=== PATIENT | male | born 1965 | race Caucasian/White ===

== ENCOUNTER 2018-03-06 15:01 | Inpatient (IN) | payer MEDICARE ==
[2018-03-06] MEDS ORDERED: diphenhydrAMINE 50 MG/ML 1 ML VIAL IVP STA ×2 (15:18→15:31)
[2018-03-06] MEDS ORDERED: SODIUM CHLORIDE 0.9% 1,000 ML IV STA (15:19)
[2018-03-06] MEDS ORDERED: SODIUM CHLORIDE 0.9% 500 ML 500 ML IV STA ×2 (15:19→16:01)
--- NOTE | 2018-03-06 15:22 | ED ---
General Adult HPI - General Chief complaint: Allergic Reaction Stated complaint: SEIZURE Time Seen by Provider: 03/06/18 15:01 Source: patient, EMS, RN notes reviewed Mode of arrival: EMS Limitations: no limitations - History of Present Illness Initial comments: This is a 52-year-old male who admits to a history of alcoholism was just started on 2 new medications yesterday Celexa and naltrexone who states he had the onset this morning of what he believes to be as a reaction. He's had shaking rigors he feels very uncomfortable he states his fever and spasming. Denies any head or neck or back pain loss of function is upper or lower extremities no blurry vision. No recent drugs or alcohol reported no prior reaction to medication. He does state he's Benadryl asleep he hasn't taken it today. - Related Data Home Medications Medication Instructions Recorded Confirmed ALPRAZolam [Xanax] 0.5 mg PO HS 03/06/18 03/06/18 Chlorthalidone 50 mg PO DAILY 03/06/18 03/06/18 Citalopram Hydrobromide [CeleXA] 10 mg PO DAILY 03/06/18 03/06/18 Clopidogrel Bisulfate [Plavix] 75 mg PO DAILY 03/06/18 03/06/18 Naltrexone HCl [Revia] 50 mg PO DAILY 03/06/18 03/06/18 Simvastatin [Zocor] 20 mg PO HS 03/06/18 03/06/18 Umeclidinium Brm/Vilanterol Tr 1 puff INHALATION RT-DAILY 03/06/18 03/06/18 [Anoro Ellipta 62.5-25 Mcg INH] Allergies Allergy/AdvReac Type Severity Reaction Status Date / Time SEAFOOD Allergy Anaphylaxis Uncoded 03/06/18 17:08 Review of Systems ROS Statement: Those systems with pertinent positive or pertinent negative responses have been documented in the HPI. ROS Other: All systems not noted in ROS Statement are negative. Past Medical History Past Medical History: CVA/TIA, Hyperlipidemia History of Any Multi-Drug Resistant Organisms: None Reported Past Surgical History: Appendectomy, Back Surgery Additional Past Surgical History / Comment(s): Knee/shoulder surgery, pain pump "dilaudid" Past Psychological History: Anxiety Smoking Status: Former smoker Past Alcohol Use History: Heavy Past Drug Use History: None Reported General Exam - General Exam Comments Initial Comments: This a well-developed well-nourished awake alert anxious male Limitations: no limitations General appearance: alert, anxious, in distress Head exam: Present: atraumatic, normocephalic, normal inspection Eye exam: Present: normal appearance, PERRL, EOMI. Absent: scleral icterus, conjunctival injection, periorbital swelling ENT exam: Present: normal exam, mucous membranes moist Neck exam: Present: normal inspection. Absent: tenderness, meningismus, lymphadenopathy Respiratory exam: Present: normal lung sounds bilaterally. Absent: respiratory distress, wheezes, rales, rhonchi, stridor Cardiovascular Exam: Present: normal rhythm, tachycardia, normal heart sounds. Absent: systolic murmur, diastolic murmur, rubs, gallop, clicks GI/Abdominal exam: Present: soft, normal bowel sounds. Absent: distended, tenderness, guarding, rebound, rigid Extremities exam: Present: normal inspection, full ROM, normal capillary refill. Absent: tenderness, pedal edema, joint swelling, calf tenderness Back exam: Present: normal inspection Neurological exam: Present: alert, oriented X3, CN II-XII intact Psychiatric exam: Present: normal affect, normal mood Skin exam: Present: warm, dry, intact, normal color. Absent: rash Course Vital Signs 03/06/18 03/06/18 15:04 15:38 Temperature 97.5 F L Pulse Rate 108 H Respiratory 20 20 Rate O2 Sat by Pulse 97 Oximetry - Reevaluation(s) Reevaluation #1: 03/06/18 15:42 Patient does start still respond to 2 doses of Benadryl IV push. Haldol be given. Reevaluation #2: 03/06/18 17:52 Patient is finally getting some relief from his tremors. Medical Decision Making - Medical Decision Making I did discuss case with the patient with Dr. Carpio patient be admitted for IV fluids and treatment of what appears to be alcohol withdrawal with a possible medication reaction patient does have a history of heavy alcohol consumption and has not had any since yesterday - Lab Data Result diagrams: 03/06/18 15:19 03/06/18 15:19 Lab Results 03/06/18 03/06/18 03/06/18 Range/Units 15:19 15:19 15:19 WBC (3.8-10.6) k/uL RBC (4.30-5.90) m/uL Hgb (13.0-17.5) gm/dL Hct (39.0-53.0) % MCV (80.0-100.0) fL MCH (25.0-35.0) pg MCHC (31.0-37.0) g/dL RDW (11.5-15.5) % Plt Count (150-450) k/uL Neutrophils % % Lymphocytes % % Monocytes % % Eosinophils % % Basophils % % Neutrophils # (1.3-7.7) k/uL Lymphocytes # (1.0-4.8) k/uL Monocytes # (0-1.0) k/uL Eosinophils # (0-0.7) k/uL Basophils # (0-0.2) k/uL Sodium 138 (137-145) mmol/L Potassium 3.9 (3.5-5.1) mmol/L Chloride 105 (98-107) mmol/L Carbon Dioxide 24 (22-30) mmol/L Anion Gap 9 mmol/L BUN 8 L (9-20) mg/dL Creatinine 0.74 (0.66-1.25) mg/dL Est GFR (CKD-EPI)AfAm >90 (>60 ml/min/1.73 sqM) Est GFR (CKD-EPI)NonAf >90 (>60 ml/min/1.73 sqM) Glucose 118 H (74-99) mg/dL Calcium 9.9 (8.4-10.2) mg/dL Magnesium 2.1 (1.6-2.3) mg/dL Total Bilirubin 1.1 (0.2-1.3) mg/dL AST 28 (17-59) U/L ALT 36 (21-72) U/L Alkaline Phosphatase 103 (38-126) U/L Ammonia 14 (<30) umol/L Total Creatine Kinase 61 (55-170) U/L CK-MB (CK-2) 1.0 (0.0-2.4) ng/mL CK-MB (CK-2) Rel Index 1.6 Total Protein 7.2 (6.3-8.2) g/dL Albumin 4.4 (3.5-5.0) g/dL Amylase 53 (30-110) U/L Lipase 68 (23-300) U/L Urine Opiates Screen (NotDetected) Ur Oxycodone Screen (NotDetected) Urine Methadone Screen (NotDetected) Ur Propoxyphene Screen (NotDetected) Ur Barbiturates Screen (NotDetected) U Tricyclic Antidepress (NotDetected) Ur Phencyclidine Scrn (NotDetected) Ur Amphetamines Screen (NotDetected) U Methamphetamines Scrn (NotDetected) U Benzodiazepines Scrn (NotDetected) Urine Cocaine Screen (NotDetected) U Marijuana (THC) Screen (NotDetected) Serum Alcohol <10 mg/dL 03/06/18 03/06/18 Range/Units 15:19 17:01 WBC 8.7 (3.8-10.6) k/uL RBC 4.89 (4.30-5.90) m/uL Hgb 15.6 (13.0-17.5) gm/dL Hct 45.4 (39.0-53.0) % MCV 92.8 (80.0-100.0) fL MCH 32.0 (25.0-35.0) pg MCHC 34.5 (31.0-37.0) g/dL RDW 13.1 (11.5-15.5) % Plt Count 267 (150-450) k/uL Neutrophils % 75 % Lymphocytes % 14 % Monocytes % 6 % Eosinophils % 2 % Basophils % 0 % Neutrophils # 6.5 (1.3-7.7) k/uL Lymphocytes # 1.2 (1.0-4.8) k/uL Monocytes # 0.6 (0-1.0) k/uL Eosinophils # 0.2 (0-0.7) k/uL Basophils # 0.0 (0-0.2) k/uL Sodium (137-145) mmol/L Potassium (3.5-5.1) mmol/L Chloride (98-107) mmol/L Carbon Dioxide (22-30) mmol/L Anion Gap mmol/L BUN (9-20) mg/dL Creatinine (0.66-1.25) mg/dL Est GFR (CKD-EPI)AfAm (>60 ml/min/1.73 sqM) Est GFR (CKD-EPI)NonAf (>60 ml/min/1.73 sqM) Glucose (74-99) mg/dL Calcium (8.4-10.2) mg/dL Magnesium (1.6-2.3) mg/dL Total Bilirubin (0.2-1.3) mg/dL AST (17-59) U/L ALT (21-72) U/L Alkaline Phosphatase (38-126) U/L Ammonia (<30) umol/L Total Creatine Kinase (55-170) U/L CK-MB (CK-2) (0.0-2.4) ng/mL CK-MB (CK-2) Rel Index Total Protein (6.3-8.2) g/dL Albumin (3.5-5.0) g/dL Amylase (30-110) U/L Lipase (23-300) U/L Urine Opiates Screen Detected H (NotDetected) Ur Oxycodone Screen Detected H (NotDetected) Urine Methadone Screen Not Detected (NotDetected) Ur Propoxyphene Screen Not Detected (NotDetected) Ur Barbiturates Screen Not Detected (NotDetected) U Tricyclic Antidepress Not Detected (NotDetected) Ur Phencyclidine Scrn Not Detected (NotDetected) Ur Amphetamines Screen Not Detected (NotDetected) U Methamphetamines Scrn Not Detected (NotDetected) U Benzodiazepines Scrn Detected H (NotDetected) Urine Cocaine Screen Not Detected (NotDetected) U Marijuana (THC) Screen Not Detected (NotDetected) Serum Alcohol mg/dL Critical Care Time Critical Care Time: Yes Critical Care Time: 32 minutes of critical care time which includes monitoring EMS run and discussed with paramedics history physical labs x-rays several reevaluation the patient response to therapy discuss with the patient discussed with the admitting physician admission orders and documentation of the above Disposition Clinical Impression: Alcohol withdrawal delirium, acute, mixed level of activity, Adverse reaction to drug Disposition: ADMITTED IP TO THIS [facility] Condition: Stable Referrals: Manfred Carpio MD [Primary Care Provider] - 1-2 days
[2018-03-06 15:37] LABS: Basophils % (A) 0 %; Eosinophils # (A) 0.2 k/uL (0-0.7); Eosinophils % (A) 2 %; HCT 45.4 % (39.0-53.0); HGB 15.6 gm/dL (13.0-17.5); Lymphocytes # (A) 1.2 k/uL (1.0-4.8); Lymphocytes % (A) 14 %; MCHC 34.5 g/dL (31.0-37.0); MCV 92.8 fL (80.0-100.0); Mean Platelet Volume 6.7; Monocytes # (A) 0.6 k/uL (0-1.0); Monocytes % (A) 6 %; Neutrophils # (A) 6.5 k/uL (1.3-7.7); Neutrophils % (A) 75 %; Platelet Count 267 k/uL (150-450); RBC 4.89 m/uL (4.30-5.90); RDW 13.1 % (11.5-15.5); WBC 8.7 k/uL (3.8-10.6)
[2018-03-06] MEDS ORDERED: HALOPERIDOL LACTATE 5 MG/ML 1 ML VIAL IVP STA (15:40)
[2018-03-06 15:47] LABS: ALT 36 U/L (21-72); AST 28 U/L (17-59); Albumin 4.4 g/dL (3.5-5.0); Alcohol <10 mg/dL; Alkaline Phosphatase 103 U/L (38-126); Amylase 53 U/L (30-110); Anion Gap 9 mmol/L; Blood Urea Nitrogen 8 mg/dL (9-20); Calcium 9.9 mg/dL (8.4-10.2); Carbon Dioxide 24 mmol/L (22-30); Chloride 105 mmol/L (98-107); Glucose 118 mg/dL (74-99); Lipase 68 U/L (23-300); Magnesium 2.1 mg/dL (1.6-2.3); Potassium 3.9 mmol/L (3.5-5.1); Sodium 138 mmol/L (137-145); Total Bilirubin 1.1 mg/dL (0.2-1.3); Total Protein 7.2 g/dL (6.3-8.2)
[2018-03-06] MEDS ORDERED: LORazepam 2 MG/ML INJ IV STA (16:00)
[2018-03-06 17:16] LABS: Amphetamine Screen,Urine Not Detected (NotDetected); Barbiturate Screen,Urine Not Detected (NotDetected); Benzodiazepines Screen,Urine Detected (NotDetected); Cocaine Screen,Urine Not Detected (NotDetected); Methadone Screen, Urine Not Detected (NotDetected); Opiate Screen,Urine Detected (NotDetected); Oxycodone Screen, Urine Detected (NotDetected); Phencyclidine Screen,Urine Not Detected (NotDetected); Tricyclic Antidepressant,Urine Not Detected (NotDetected); Urn Cannabinoid Scrn Not Detected (NotDetected)
[2018-03-06] MEDS ORDERED: NALOXONE 0.4 MG/ML 1 ML VIAL IV PRN (17:53)
[2018-03-06] MEDS ORDERED: LORazepam 2 MG/ML INJ IV PRN ×2 (17:55)
[2018-03-06] MEDS ORDERED: THIAMINE 100 MG/ML 2 ML VIAL IM STA (17:55)
[2018-03-06] MEDS ORDERED: SODIUM CHLORIDE 0.9% 1,000 ML with MVI, ADULT NO.4 WITH VIT K 10 ML, THIAMINE 100 MG, F... IV ONE ×4 (18:00)
[2018-03-06] MEDS: ATORVASTATIN 10 MG TAB PO SCH (22:35)
[2018-03-06] MEDS: LORazepam 2 MG/ML INJ IV PRN (23:04)
[2018-03-06] MEDS: ALPRAZolam 0.5 MG TAB PO SCH (23:04)
--- NOTE | 2018-03-06 23:09 | P.CNNES ---
History of Present Illness Consult date: 03/06/18 Reason for Consult: Patient admitted with alcohol withdrawal syndrome and adverse drug reaction History of Present Illness: This patient is a 52-year-old right-handed white male who was in his usual state of health until yesterday. Patient states that he was seen by his primary care physician Dr. Manfred Khoury and was suggested to consider treatment of underlying depression and alcohol is him as he has been suffering from with these symptoms for the past many years. He has a long-standing history of alcohol abuse and was trying to stop drinking altogether and had gone 21 days without a drink. Apparently he decided to start back on alcohol just yesterday. He went to see his primary care physician Dr. Bi Khoury who suggested he may benefit from a trial of 2 medications for treatment of his alcoholism. He was prescribed Celexa and naltrexone. He did obtain these to medications but did not use it for day or 2 as he was concerned of possible side effects. Apparently today he decided to take one of each pill to see if this would be of any benefit for him. Rarely he has been very depressed and is living alone in his own [place]. Apparently there are very few renters around his home as it is the sixth winter season and they will only return during the summer. The patient apparently has been doing fairly well over the years living in his cottage independently. He states he has been frustrated as he has recently undergone divorce and has been dealing with chronic depression as well as chronic low back pain. He also suffers from PTSD since 2002. His chronic back pain has been treated by his pain specialists in [place] Dr. Lainez. Apparently has a pain pump placed in his back and in the spinal area which is filled with Dilaudid every 2 months. The patient states that he has been dealing with alcohol withdrawal seizures as well as alcohol related medical problems. He is willing to consider drug rehabilitation and may seek out possible outpatient therapies locally. The patient otherwise has been doing better since being evaluated in the emergency room. Patient states that within 30 minutes of taking these 2 pills he began experiencing burning pain within the body followed by severe dystonic reaction. He was seen in the emergency room by Dr. Ny and was given 2 doses of Benadryl. This has worked very well for the patient and he seems to be coming out of his acute dystonic type reaction. We described all of these findings today in detail with the patient. Most likely the patient did suffer some form of dystonia. The Benadryl that was given to him in the ER was very helpful. We have recommended the patient to follow-up in the outpatient drug rehabilitation program at [place]. He will consider this upon discharge. The patient is now admitted and has been started on a CIWA protocol. He should complete the entire course and hopefully this will be beneficial for him in the long run. The patient is now admitted and neurology has been consulted for further evaluation and recommendations. Review of Systems Constitutional: Denies chills, Denies fever Eyes: denies blurred vision, denies pain Ears, nose, mouth and throat: Denies headache, Denies sore throat Cardiovascular: Denies chest pain, Denies shortness of breath Respiratory: Denies cough Gastrointestinal: Denies abdominal pain, Denies diarrhea, Denies nausea, Denies vomiting Musculoskeletal: Denies myalgias Integumentary: Denies pruritus, Denies rash Neurological: Reports change in mentation, Reports confusion, Reports convulsions, Reports headaches, Reports memory loss, Reports sensory deficit, Denies numbness, Denies weakness Psychiatric: Denies anxiety, Denies depression Endocrine: Denies fatigue, Denies weight change Past Medical History Past Medical History: CVA/TIA, Hyperlipidemia History of Any Multi-Drug Resistant Organisms: None Reported Past Surgical History: Appendectomy, Back Surgery Additional Past Surgical History / Comment(s): Knee/shoulder surgery, pain pump "dilaudid" Past Psychological History: Anxiety Smoking Status: Former smoker Past Alcohol Use History: Heavy Past Drug Use History: None Reported Medications and Allergies Home Medications Medication Instructions Recorded Confirmed Type ALPRAZolam [Xanax] 0.5 mg PO HS 03/06/18 03/06/18 History Chlorthalidone 50 mg PO DAILY 03/06/18 03/06/18 History Citalopram Hydrobromide [CeleXA] 10 mg PO DAILY 03/06/18 03/06/18 History Clopidogrel Bisulfate [Plavix] 75 mg PO DAILY 03/06/18 03/06/18 History Naltrexone HCl [Revia] 50 mg PO DAILY 03/06/18 03/06/18 History Simvastatin [Zocor] 20 mg PO HS 03/06/18 03/06/18 History Umeclidinium Brm/Vilanterol Tr 1 puff INHALATION RT-DAILY 03/06/18 03/06/18 History [Anoro Ellipta 62.5-25 Mcg INH] Allergies Allergy/AdvReac Type Severity Reaction Status Date / Time SEAFOOD Allergy Anaphylaxis Uncoded 03/06/18 17:08 Physical Examination - Vital Signs Vital Signs: Vital Signs Temp Pulse Pulse Resp BP BP Pulse Ox 03/06/18 20:44 99 F 99 20 154/81 96 03/06/18 20:07 97 18 132/88 96 03/06/18 17:30 111 H 10 L 147/90 03/06/18 16:30 97 9 L 140/88 95 03/06/18 15:38 20 03/06/18 15:30 118 H 27 H 196/105 96 03/06/18 15:06 105 H 36 H 98 03/06/18 15:04 97.5 F L 108 H 20 97 Intake and Output 03/06/18 03/06/18 03/06/18 06:59 14:59 22:59 Other: Weight 113.398 kg - Constitutional General appearance: average body habitus, cooperative - EENT EENT: PERRL, mucous membranes moist - Respiratory Respiratory: lungs clear, normal breath sounds - Cardiovascular Cardiovascular: regular rate, normal S1, normal S2 Extremities: no peripheral edema bilaterally - Gastrointestinal Gastrointestinal: normoactive bowel sounds - Integumentary Integumentary: normal - Neurologic Cranial nerve examination: PERRL, EOMI, VFF, V1/V2/V3 grossly intact, face symmetric, intact shoulder shrug, intact gag reflex, intact corneal reflex, normal palatal elevation Speech examination: intact Sensorimotor examination: intact Motor examination - right side: 4/5: biceps, triceps, wrist flexion, wrist extension, biofuels plant 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 engineer, hip flexors, knee extensors, dorsiflexion, toe extension (EHL) , plantarflexion Motor examination - left side: 4/5: biceps, triceps, wrist flexion, wrist extension, biofuels plant operations engineer, hip flexors, knee extensors, dorsiflexion, toe extension (EHL) , plantarflexion Detailed sensory examination: intact Reflex and gait examination: intact Reflexes: 1+: ankle, bicep, knee, tricep - Musculoskeletal Musculoskeletal: no pain - Psychiatric Psychiatric: mood/affect appropriate, cooperative Results - Laboratory Findings CBC and BMP: 03/06/18 15:19 03/06/18 15:19 Abnormal Lab Findings: Abnormal Labs 03/06/18 03/06/18 15:19 17:01 BUN 8 L Glucose 118 H Urine Opiates Screen Detected H Ur Oxycodone Screen Detected H U Benzodiazepines Scrn Detected H Assessment and Plan (1) Adverse reaction to drug Current Visit: Yes Status: Acute Code(s): T50.905A - ADVERSE EFFECT OF UNSP DRUG/MEDS/BIOL SUBST, INIT SNOMED Code(s): 26753959 (2) Alcohol withdrawal delirium, acute, mixed level of activity Current Visit: Yes Status: Acute Code(s): F10.231 - ALCOHOL DEPENDENCE WITH WITHDRAWAL DELIRIUM SNOMED Code(s): 1379928 Plan: This patient is a 52-year-old male who has a long-standing history of chronic low back pain, PTSD, depression, and alcoholism. Patient had been trying to quit alcohol altogether noted on taken a drink for over 21 days. Apparently he restarted alcohol just a few days ago. He was seen by his primary care physician and was prescribed Celexa and naltrexone. Patient apparently waited until today to try the medications and apparently had a very adverse reaction to these 2 medications. He developed some dystonia. He was brought into the emergency room at [facility] for further evaluation. He was seen in the ER by Dr. Ny. He was felt to have some form of dystonia and was given 2 shots of Benadryl which was very helpful. The patient otherwise seems to be making progress. He has not had any type of adverse reaction to medications in the past. We would recommend the patient have a computed tomography scan of the brain as a baseline study. He does have history of a stroke 7 years ago. We will continue close neurological follow-up for the patient during this admission. His overall prognosis at this time remains guarded. We have also recommended to the patient to consider inpatient drug rehabilitation at [facility]. He will consider this with Dr. Rodriguez. Patient otherwise states he has been doing better since admission to the hospital. He has been placed on a CIWA protocol and should continue on the same. The patient otherwise seems to be doing well. We will continue to follow his neurological status closely during this admission. His overall prognosis at this time remains guarded. Time with Patient: Greater than 30
[2018-03-06 23:16] VITALS: BMI 33.4
[2018-03-07] MEDS: HYDROmorphone 1 MG/ML 1 ML SYRINGE IVP PRN ×4 (00:20→17:20)
[2018-03-07] MEDS: IPRATROPIUM 0.5 MG/2.5 ML NEBU INHALATION SCH ×4 (07:29→19:33)
[2018-03-07] MEDS: FORMOTEROL FUMARATE 20 MCG/2 ML NEBU INHALATION SCH ×2 (07:29→19:33)
[2018-03-07] MEDS: LORazepam 2 MG/ML INJ IV PRN ×2 (08:27→13:58)
[2018-03-07] MEDS: CLOPIDOGREL 75 MG TAB PO SCH (08:49)
[2018-03-07] MEDS: CHLORTHALIDONE 25 MG TAB PO SCH (08:50)
[2018-03-07] MEDS: THIAMINE 100 MG TAB PO SCH ×2 (12:04→17:20)
--- NOTE | 2018-03-07 16:14 | CT ---
EXAMINATION TYPE: CT brain wo con DATE OF EXAM: 03/07/2018 COMPARISON: Prior head CT 09/19/2011 HISTORY: Prior CVA. CT DLP: 1225 mGycm Automated exposure control for dose reduction was used. CT brain performed. FINDINGS: White matter low-attenuation changes are again seen. No hemorrhage or hydrocephalus. No mass effect. Calvarium is intact. Paranasal sinuses and mastoid air cells as visualized are unremarkable. IMPRESSION: NONSPECIFIC WHITE MATTER DEMYELINATION. NO ACUTE ABNORMALITIES EVIDENT. CONSIDER BRAIN MRI.
--- NOTE | 2018-03-07 19:59 | EEG ---
ELECTROENCEPHALOGRAM REPORT DATE OF EE03/07/2018. REFERRING PHYSICIAN: Dr. Carpio. INTERPRETING PHYSICIAN: Dr. Wood Avina MD ELECTROENCEPHALOGRAPHIC EXAMINATION REPORT: INDICATION FOR EXAMINATION: This patient is a 52-year-old male, admitted for possible alcohol withdrawal seizure and adverse reaction to medication. Patient treated with Celexa on naltrexone and developed dystonia with possible seizure activity. The patient has history of alcohol withdrawal seizures in the past. AGE: [age]. EEG FINDINGS: A routine 21 channel awake digital EEG recording was accomplished utilizing the 10-20 international system with bipolar and referential montages. The background activity in the most alert resting state consists of a low to medium amplitude, fairly well developed and well sustained 8 Hz activity over the posterior head region. This posterior rhythm attenuates to eye opening. There is a small amount of low amplitude 18-20 Hz beta activity seen maximally over the anterior head regions. Muscle and movement artifact was observed on a few occasions during the tracing. Hyperventilation was not performed. Photic stimulation at flash frequencies of 2-30 Hz produced a good symmetrical occipital driving response. No epileptiform discharges were seen. IMPRESSION: This EEG is within normal limits for the patient's age. The EEG failed to reveal any focal, lateralized, or epileptiform abnormalities. Clinical correlation is recommended. MMODL / IJN: [id number] /
--- NOTE | 2018-03-07 20:41 | P.PN ---
Subjective Progress Note Date: 03/07/18 This patient is a 52-year-old male who was seen in neurology consultation yesterday for evaluation of alcohol related withdrawal seizure and confusion. He was admitted and started on a CIWA protocol for alcohol withdrawal. He was sent for computed tomography scan of the brain today which revealed nonspecific white matter changes. No acute abnormalities were evident. We reviewed the CAT scan report today with the patient. He does have a remote history of having suffered a stroke many years ago. He seems to be doing better in terms of his overall mental status today and is able to answer all questions appropriately. As noted he is on a CIWA protocol which is working quite well for him at this time. Patient underwent routine EEG today which will be further reviewed this evening. We did review his EEG this evening and it does come back within normal limits for his age. There was no evidence of any epileptiform discharges. We reviewed these results today with the patient in detail. Patient is anticipating possible discharge home tomorrow. We once again recommend the patient should consider a drug rehabilitation program at [place] [facility]. Patient is also reminded that he is to be very cautious with his ALLERGIES and to carry EpiPen with him at all times. At this point he does not require anticonvulsant therapy. We will continue close neurological follow-up the patient during this admission. Objective - Vital Signs Vital signs: Vital Signs Temp 97.9 F 03/07/18 13:42 Pulse 88 03/07/18 16:04 Resp 24 03/07/18 13:42 BP 130/73 03/07/18 13:42 Pulse Ox 98 03/07/18 13:42 Intake & Output 03/07/18 03/07/18 03/08/18 06:59 18:59 06:59 Intake Total 400 Balance 400 Weight 115 kg Intake: Oral 400 Other: Voiding Method Toilet Urinal # Voids 1 3 - Exam Physical examination: PHYSICAL EXAMINATION: Patient is resting comfortably in bed. VITAL SIGNS: Blood pressure is [130/73]. Heart rate is [92]. Respiration is [24] . Temperature is [97.9]. HEENT: Head is atraumatic, neck is supple, there were no carotid bruits. CHEST: Lungs are clear to auscultation and percussion. CARDIAC: S1, S2 normal rate and rhythm. There is no murmur. ABDOMEN: Soft and nontender. Bowel sounds are present. EXTREMITIES: There is no pedal edema. Peripheral pulses are present. Neurological examination: Patient's neurological examination is unchanged from yesterday. Patient is alert and oriented 3. His speech is fluent with no evidence of any aphasia or dysarthria. His memory and intellectual functions are appropriate for his age. Cranial nerves II through XII are grossly intact. Motor examination fails to reveal any focal motor weakness. Sensory examination was intact. Deep tendon reflexes are 1+ and symmetric. Plantar responses flexor bilaterally. - Labs CBC & Chem 7: 03/06/18 15:19 03/06/18 15:19 Assessment and Plan (1) Adverse reaction to drug Current Visit: Yes Status: Acute Code(s): T50.905A - ADVERSE EFFECT OF UNSP DRUG/MEDS/BIOL SUBST, INIT SNOMED Code(s): 45479574 (2) Alcohol withdrawal delirium, acute, mixed level of activity Current Visit: Yes Status: Acute Code(s): F10.231 - ALCOHOL DEPENDENCE WITH WITHDRAWAL DELIRIUM SNOMED Code(s): 1556724 Plan: This patient is a 52-year-old male who has a long-standing history of chronic low back pain, PTSD, depression, and alcoholism. Patient had been trying to quit alcohol altogether noted on taken a drink for over 21 days. Apparently he restarted alcohol just a few days ago. He was seen by his primary care physician and was prescribed Celexa and naltrexone. Patient apparently waited until today to try the medications and apparently had a very adverse reaction to these 2 medications. He developed some dystonia. He was brought into the emergency room at [facility] for further evaluation. He was seen in the ER by Dr. Ny. He was felt to have some form of dystonia and was given 2 shots of Benadryl which was very helpful. The patient otherwise seems to be making progress. He has not had any type of adverse reaction to medications in the past. Patient was reminded that he should avoid both of these medications in the future so as to avoid any dystonic reactions. He states he will definitely make a note to never use these to prescription medications again. We would recommend the patient have a computed tomography scan of the brain as a baseline study. He does have history of a stroke 7 years ago. We will continue close neurological follow-up for the patient during this admission. His overall prognosis at this time remains guarded. We have also recommended to the patient to consider inpatient drug rehabilitation at [facility]. He will consider this with Dr. Carpio.. Patient otherwise states he has been doing better since admission to the hospital. He has been placed on a CIWA protocol and should continue on the same. Patient was sent for computed tomography scan of the brain this morning which was reviewed and is negative for any evidence of acute stroke or chronic strokes in the past. Patient mentions he has a history of total occlusion of the left ICA. He should follow-up with his primary care physician to have a yearly carotid Doppler ultrasound study done for further monitoring. Most likely the patient will be discharged home tomorrow. He is to follow-up with his primary care physician soon after discharge. Once again we have recommended he consider a drug rehabilitation program at [place]. The patient otherwise seems to be doing well. We will continue to follow his neurological status closely during this admission. His overall prognosis at this time remains guarded.
--- NOTE | 2018-03-07 20:44 | HP ---
HISTORY AND PHYSICAL CHIEF COMPLAINT: This is a 52-year-old white male with alcohol withdrawal symptoms, adverse drug reaction. HISTORY OF PRESENT ILLNESS: This is a 52-year-old white male alcohol abuse he took naltrexone and went back to drinking alcohol. He took one of each pill and he developed some kind of tremors in his arms and spasticity and worsening depression and due to some dystonic movements he came into the emergency room. Neurology has seen him. Medicines were stopped after one pill. He took just one pill, he states, of each medication. He states he will go to a drug rehab program at [place] for alcohol at his discharge. He was started on CIWA protocol. REVIEW OF SYSTEMS: Fourteen-point review of systems negative except for generalized weakness, history of CVA, TIA, alcoholism, nicotine addiction, carotid stenosis, dyslipidemia. SURGERIES: 1. Appendectomy. 2. Back surgery. 3. Knee surgery. 4. Pain pump with Dilaudid apparently in his back. 5. Heavy alcohol. HOME MEDICINES: 1. Xanax. He states this is helping him. 2. Chlorthalidone. 3. Celexa. 4. Plavix. 5. Revia. 6. Zocor. 7. Anoro. ALLERGIES: SEAFOOD. PHYSICAL EXAMINATION: VITAL SIGNS: Temperature 99, pulse in 90s to low 100s, respiratory rate 18-20, blood pressure 120s to 140s over 80s to 90s, oxygen 96% on room air. CARDIOVASCULAR: S1 and S2. LUNGS: Clear. He is giving appropriate answers. He stands on the side of the bed with good balance. He took a few steps and sat back down. He states he is doing well and wants to go home in the morning. His flexions are good. His range of motion is good x4. He has no extremity tremors. No signs of any weakness at this point. ASSESSMENT: Possible adverse reaction to a drug, alcohol withdrawal. He was started on CIWA protocol. He is doing well at this time. He also had aversion to one pill. He will follow up as an outpatient. We send him home in the morning. He is requesting increased Dilaudid and Xanax while he is here in the hospital. MMODL / IJN: [id number] /
[2018-03-07] MEDS: HYDROmorphone 1 MG/ML 1 ML SYRINGE IM PRN (21:08)
[2018-03-07] MEDS: ALPRAZolam 0.5 MG TAB PO SCH (21:11)
[2018-03-07] MEDS: ATORVASTATIN 10 MG TAB PO SCH (21:11)
[2018-03-07 23:32] VITALS: RESP 16
[2018-03-08] MEDS: HYDROmorphone 1 MG/ML 1 ML SYRINGE IM PRN ×3 (01:05→09:11)
[2018-03-08] MEDS: IPRATROPIUM 0.5 MG/2.5 ML NEBU INHALATION SCH ×2 (07:48→11:19)
[2018-03-08] MEDS: FORMOTEROL FUMARATE 20 MCG/2 ML NEBU INHALATION SCH (07:48)
[2018-03-08 07:54] VITALS: BP 130/78; TEMP 98.5
[2018-03-08] MEDS: CHLORTHALIDONE 25 MG TAB PO SCH (09:11)
[2018-03-08] MEDS: CLOPIDOGREL 75 MG TAB PO SCH (09:11)
[2018-03-08 12:11] VITALS: PULSE 88
== END 2018-03-08 15:40 | disposition home or self-care (01) | DRG 897 ==
LOC: EC 15:01 → 4MS4W 18:07 → OBSVTOIN 03-07 08:25
PROVIDERS: ADMIT Family Medicine; ATTEND Family Medicine
DX: F10.231 Alcohol dependence with withdrawal delirium (principal); E78.5 Hyperlipidemia, unspecified; F32.9 Major depressive disorder, single episode, unspecified; F43.10 Post-traumatic stress disorder, unspecified; G24.9 Dystonia, unspecified; G89.29 Other chronic pain; Z79.02 Long term (current) use of antithrombotics/antiplatelets; Z86.73 Personal history of transient ischemic attack (TIA), and cerebral infarction without residual deficits; Z87.891 Personal history of nicotine dependence; T43.225A Adverse effect of selective serotonin reuptake inhibitors, initial encounter; T50.7X5A Adverse effect of analeptics and opioid receptor antagonists, initial encounter; I65.22 Occlusion and stenosis of left carotid artery; Z79.891 Long term (current) use of opiate analgesic; Z79.899 Other long term (current) drug therapy; M54.5 Low back pain; F41.9 Anxiety disorder, unspecified; Z91.013 Allergy to seafood
CPT/HCPCS: 36415; 70450; 80053; 80306; 80320; 82140; 82150; 82550; 82553; 83690; 83735; 85025; 94640; 95819; 96361; 96365; 96366; 96375; 96376; 99285

== ENCOUNTER → 2018-08-16 | Outpatient (CLI) | payer MEDICARE ==
--- NOTE | 2018-08-16 16:50 | XR ---
EXAMINATION TYPE: XR Hip Bilateral Complete DATE OF EXAM: 08/16/2018 COMPARISON: None HISTORY: Left hip pain TECHNIQUE: Bilateral hips are examined in 2 projections each FINDINGS: Femoral heads articulate with the acetabulum. Joint spaces appear preserved. No acute fract ures or dislocations are evident. IMPRESSION: 1. Normal bilateral hips.
== END | disposition home or self-care (01) ==
LOC: RADXRMAIN 14:50
PROVIDERS: ATTEND Family Medicine
DX: M16.0 Bilateral primary osteoarthritis of hip (principal)
CPT/HCPCS: 73521

== ENCOUNTER → 2019-11-20 | Outpatient (CLI) | payer MEDICARE ==
--- NOTE | 2019-11-20 17:09 | US ---
EXAMINATION TYPE: US carotid duplex BILAT DATE OF EXAM: 11/20/2019 COMPARISON: ultrasound carotid Doppler 10/03/2014 CLINICAL HISTORY: I65.29 CAD. Pt states left ICA occlusion, feeling unwell EXAM MEASUREMENTS: RIGHT: Peak Systolic Velocity (PSV) cm/sec ----- Right CCA: 97.4 ----- Right ICA: 125.3 ----- Right ECA: 78.7 ICA/CCA ratio: 1.3 RIGHT: End Diastole cm/sec ----- Right CCA: 31.4 ----- Right ICA: 55.9 ----- Right ECA: 16.0 LEFT: Peak Systolic Velocity (PSV) cm/sec ----- Left CCA: 71.2 ----- Left ICA: Occluded ----- Left ECA: 104.3 ICA/CCA ratio: 0.7 LEFT: End Diastole cm/sec ----- Left CCA: 12.7 ----- Left ICA: Occluded ----- Left ECA: 20.2 VERTEBRALS (direction of flow): Right Vertebral: Antegrade Left Vertebral: Antegrade soto scale, color Doppler, spectral Doppler imaging performed of the carotid arteries. Waveform analysis shows no flow within the internal carotid artery on the left IMPRESSION: Chronic occlusion of the left internal carotid artery Criteria for Assigning % of Stenosis / Diameter reduction (Estimation based on the indirect measurements of the internal carotid artery velocities (ICA PSV). 1. Normal (no stenosis)=ICA PSV < 125 cm/s: ratio < 2.0: ICA EDV<40 cm/s. 2. Less than 50% stenosis=ICA PSV < 125 cm/s: ratio < 2.0: ICA EDV<40 cm/s. 3. 50 to 69% stenosis=ICA PSV of 125 to 230 cm/s: ration 2.0 ? 4.0: ICA EDV 40-100 cm/s. 4. Greater than 70% stenosis to near occlusion= ICA PSV > 230 cm/s: ratio > 4.0: ICA EDV > 100 cm/s. 5. Near occlusion= ICA PSV velocities may be low or undetectable: variable ratio and ICA EDV. 6. Total occlusion=unable to detect flow.
--- NOTE | 2019-11-20 18:35 | ECHOF ---
Referral Reason:I65.29 CAD MEASUREMENTS -------- HEIGHT: 182.9 cm WEIGHT: 136.1 kg BP: 182/92 RVIDd: 3.3 cm (< 3.3) IVSd: 1.2 cm (0.6 - 1.1) LVIDd: 5.4 cm (3.9 - 5.3) LVPWd: 1.3 cm (0.6 - 1.1) IVSs: 1.6 cm LVIDs: 3.4 cm LVPWs: 1.4 cm LA Diam: 3.4 cm (2.7 - 3.8) Ao Diam: 3.4 cm (2.0 - 3.7) AV Cusp: 2.2 cm (1.5 - 2.6) MV EXCURSION: 14.991 mm (> 18.000) MV EF SLOPE: 89 mm/s (70 - 150) EPSS: 0.5 cm MV E Patel: 0.86 m/s MV DecT: 213 ms MV A Patel: 1.04 m/s MV E/A Ratio: 0.83 RAP: 5.00 mmHg RVSP: 23.84 mmHg FINDINGS -------- Sinus rhythm. This was a technically difficult study with suboptimal views. The left ventricular size is normal. There is mild concentric left ventricular hypertrophy. Overa ll left ventricular systolic function is normal with, an EF between 55 - 60 %. The right ventricle is normal in size. The left atrial size is normal. The right atrium was not well visualized. 5.0mg of Lumason was utilized for enhancement of images Interatrial and interventricular septum intact. The aortic valve is trileaflet, and appears structurally normal. No aortic stenosis or regurgitation. The mitral valve is normal. There is trace to mild mitral regurgitation. The tricuspid valve appears structurally normal. Mild tricuspid regurgitation present. Right vent ricular systolic pressure is normal at < 35 mmHg. The pulmonic valve was not well visualized. There is no pulmonic regurgitation present. The aortic root size is normal. IVC Not well visulized. There is no pericardial effusion. CONCLUSIONS -------- 1. This was a technically difficult study with suboptimal views. 2. The left ventricular size is normal. 3. There is mild concentric left ventricular hypertrophy. 4. Overall left ventricular systolic function is normal with, an EF between 55 - 60 %. 5. The left atrial size is normal. 6. 5.0mg of Lumason was utilized for enhancement of images 7. The aortic valve is trileaflet, and appears structurally normal. No aortic stenosis or regurgitati on. 8. There is trace to mild mitral regurgitation. 9. Mild tricuspid regurgitation present. 10. There is no pericardial effusion. DIABETES TERRITORY MANAGER: SHAD Love
== END | disposition home or self-care (01) ==
LOC: RADECHMAIN 15:00
PROVIDERS: ATTEND Family Medicine
DX: I65.22 Occlusion and stenosis of left carotid artery (principal)
CPT/HCPCS: 93880; C8929; Q9950; 93306

== ENCOUNTER 2020-07-09 14:40 | Inpatient (IN) | payer MEDICARE ==
[2020-07-09] MEDS ORDERED: RX INFO: IV CONTRAST WAS GIVEN 1 EACH MISC MISCELLANE PRN (16:14)
[2020-07-09 17:17] LABS: Basophils # (A) 0.1 k/uL (0-0.2); Basophils % (A) 1 %; Eosinophils % (A) 17 %; HCT 43.7 % (39.0-53.0); HGB 14.7 gm/dL (13.0-17.5); Lymphocytes # (A) 1.8 k/uL (1.0-4.8); Lymphocytes % (A) 16 %; MCH 31.5 pg (25.0-35.0); MCHC 33.7 g/dL (31.0-37.0); MCV 93.5 fL (80.0-100.0); Mean Platelet Volume 7.3; Monocytes # (A) 0.5 k/uL (0-1.0); Monocytes % (A) 4 %; Neutrophils % (A) 61 %; Platelet Count 342 k/uL (150-450); RBC 4.67 m/uL (4.30-5.90); RDW 13.1 % (11.5-15.5); WBC 11.5 k/uL (3.8-10.6)
[2020-07-09 17:32] LABS: ALT 35 U/L (4-49); AST 36 U/L (17-59); African American GFR (CKD) >90 (>60 ml/min/1.73 sqM); Albumin 4.2 g/dL (3.5-5.0); Albumin/Globulin Ratio 1.4; Alkaline Phosphatase 101 U/L (38-126); Anion Gap 8 mmol/L; Blood Urea Nitrogen 17 mg/dL (9-20); Calcium 9.6 mg/dL (8.4-10.2); Carbon Dioxide 27 mmol/L (22-30); Chloride 103 mmol/L (98-107); Glucose 98 mg/dL (74-99); Non-African American GFR(CKD) >90 (>60 ml/min/1.73 sqM); Potassium 4.7 mmol/L (3.5-5.1); Sodium 138 mmol/L (137-145); Total Bilirubin 0.6 mg/dL (0.2-1.3); Total Protein 7.2 g/dL (6.3-8.2)
--- NOTE | 2020-07-09 18:30 | CT ---
EXAMINATION TYPE: CT chest w con DATE OF EXAM: 07/09/2020 COMPARISON: None HISTORY: Right anterior rib pain. Shortness of breath with exertion. CT DLP: 767 mGycm Automated exposure control for dose reduction was used. TECHNIQUE: CT scan of the chest is performed with IV Contrast, patient injected with 100 mL of Isovue 300. MIP Images are created on CT scanner and reviewed. 3D reconstructed images are created on an [employer] workstation and reviewed. FINDINGS: AIRWAYS: Unremarkable LUNGS: Right: There is complete right lower lobe passive atelectasis, associated with the large right pleura l effusion which occupies one third of the right hemithorax. The inflated right lung parenchyma is cl ear as seen. Left: In the left upper lobe there is a nonspecific 6 cm mean diameter zone of groundglass opacity an terolaterally. PLEURAL SPACES: Large right pleural effusion, occupying one third of the right hemithorax; no right p neumothorax. On the left, no pleural effusion or pneumothorax. MEDIASTINUM: There is gaseous distention of the thoracic esophagus throughout its extent, with depend ent material within the thoracic esophagus throughout its extent, in the same appearance as the succu s within the stomach. There are no greater than 1 cm hilar or mediastinal lymph nodes. Aorta and pulm onary arteries are negative as seen. No cardiomegaly or pericardial effusion. Coronary calcification s noted. OTHER: No additional significant abnormality is seen. IMPRESSION: 1. Large right pleural effusion with passive right lower lobe atelectasis. 2. Nonspecific 6 cm geographic zone of groundglass opacity left upper lobe. 3. Esophageal findings as above.
[2020-07-09] MEDS: SODIUM CHLORIDE 0.9% 1,000 ML IV SCH (19:26)
[2020-07-09] MEDS: IPRATROPIUM 0.5 MG/2.5 ML NEBU INHALATION SCH (19:49)
[2020-07-09] MEDS: FORMOTEROL FUMARATE 20 MCG/2 ML NEBU INHALATION SCH (19:53)
[2020-07-09] MEDS: ALPRAZolam 0.5 MG TAB PO SCH (21:12)
[2020-07-09] MEDS: ATORVASTATIN 10 MG TAB PO SCH (21:12)
[2020-07-09] MEDS: KETOROLAC 15 MG/ML 1 ML VIAL IVP PRN (21:12)
--- NOTE | 2020-07-09 21:17 | XR ---
PROCEDURE: XR ribs RT w pa chest xray - 3V DATE AND TIME: 07/09/2020 8:39 PM CLINICAL INDICATION: PHH; pain TECHNIQUE: Department protocol COMPARISON: None FINDINGS: There is a large right pleural effusion dependently, with associated passive atelectasis of the right lower lobe and the medial segment right middle lobe. There is subtle added opacity in the left upper lung zone, best characterized on the CT chest . No focal skeletal radiographic findings. IMPRESSION: Large right pleural effusion.
--- NOTE | 2020-07-09 21:18 | US ---
EXAMINATION TYPE: US chest DATE OF EXAM: 07/09/2020 COMPARISON: CT, XR CLINICAL HISTORY: fluid, poss thoracentesis on right. Pleural effusion, possible thoracentesis. TECHNIQUE: Targeted ultrasound of the posterior lower right hemithorax EXAM MEASUREMENTS: Right Pleural Effusion pocket size: 13.05 cm Right skin surface to fluid distance: 4.77 cm Left Pleural Effusion pocket size: No fluid seen. *There appear to be septations within fluid as seen on images. Right side marked for possible thoracentesis outside the dept. Left side NOT marked for possible thoracentesis outside the dept. Pulmonologists are able to review the images in the patient?s EMR. IMPRESSIONS: Large right pleural effusion.
[2020-07-09] MEDS: methylPREDNISolone SOD SUCCI 40 MG/ML 1 ML VIAL IV SCH (23:46)
[2020-07-10 03:38] LABS: Hemoglobin A1C 5.8 % (4.0-6.0)
[2020-07-10] MEDS: KETOROLAC 15 MG/ML 1 ML VIAL IVP PRN ×4 (04:15→22:30)
[2020-07-10] MEDS: FORMOTEROL FUMARATE 20 MCG/2 ML NEBU INHALATION SCH ×2 (07:50→19:40)
[2020-07-10] MEDS: IPRATROPIUM 0.5 MG/2.5 ML NEBU INHALATION SCH ×4 (07:50→19:40)
[2020-07-10] MEDS ORDERED: FORMOTEROL FUMARATE 20 MCG/2 ML NEBU INHALATION SCH (08:00)
[2020-07-10] MEDS: CLOPIDOGREL 75 MG TAB PO SCH (08:38)
[2020-07-10] MEDS: methylPREDNISolone SOD SUCCI 40 MG/ML 1 ML VIAL IV SCH ×3 (08:38→23:21)
--- NOTE | 2020-07-10 08:52 | HP ---
HISTORY AND PHYSICAL A 54-year-old white male was admitted with severe shortness of breath at rest or with any exertion. He had trauma to his right side of his ribs. He has a large pleural effusion, which will need to be drained. He has shortness of breath at rest or with any exertion. He is a long-time smoker. He has had history of strokes, hypertension, sleep apnea, etc. He has a large right-sided pleural effusion 13 cm size, unclear etiology with tap which is affecting his breathing. PAST MEDICAL HISTORY: Obesity, nicotine addiction, alcoholism, dyslipidemia, prior stroke, carotid stenosis. MEDICATIONS: He takes: 1. Lipitor 10 mg at night. 2. Xanax 0.5 at night. 3. Perforomist nebulizer b.i.d. 4. Ipratropium nebulizer q.i.d. Start him on Solu-Medrol and Toradol for pain. PHYSICAL EXAMINATION: Temperature 98, blood pressure 140s over 70s, O2 is 93 on room air, respiratory rate 18 to 25. CARDIOVASCULAR: S1, S2. LUNGS: Decreased breath sounds on the right side. He has some splinting due to right- sided rib pain. GI: Soft. HEMATOLOGY: Negative Homans. PSYCH: Fair mood and affect. NEUROLOGIC: Alert and orient x3. ENDOCRINE: BMI is over 40. INTEGUMENT: No rashes. ASSESSMENT: 1. Acute chronic obstructive pulmonary disease exacerbation. 2. Acute hypoxemic respiratory distress. 3. Large right-sided pleural effusion, unclear etiology, will have to be tapped, suspect hemopneumothorax. Prognosis guarded. Pulmonary consult intact. Wait for the patient to have draining of his lung. Please see further orders. MMODL / IJN: [id number] /
[2020-07-10] MEDS ORDERED: CHLORTHALIDONE 25 MG TAB PO SCH (09:00)
[2020-07-10] MEDS ORDERED: CITALOPRAM HYDROBROMIDE 10 MG TAB PO SCH (09:00)
[2020-07-10] MEDS ORDERED: LIDOCAINE 1% INJ 10MG/ML (20 ML MDV) ONE (10:04)
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
[2020-07-10 10:30] LABS: Prothrombin Time 10.7 sec (9.0-12.0)
--- NOTE | 2020-07-10 11:16 | P.PCN ---
Date of Procedure: 07/10/20 Preoperative Diagnosis: large right pleural effusion Postoperative Diagnosis: as above Procedure(s) Performed: right thoracentesis Anesthesia: local Surgeon: Bienvenido King Estimated Blood Loss (ml): 1 Condition: stable Disposition: floor Indications for Procedure: shortness of breath, chest pain, early developing loculation Operative Findings: as below Description of Procedure: patient informed about the procedure at length side effect complication and a lternative explained to the patient, ultrasound was utilized to locate the maximum depth of fluid on the right side, 1% lidocaine was infiltrated, and around eighth intercostal space mid scapular line followed by placement of a small stab incision about 1/8 of an inch through that incision catheter in needle was placed needle was withdrawn catheter left in position and 2.1 L of tamiko color pleural fluid removed patient tolerated procedure very well no complication noted area secured dry dressing applied estimated blood loss 1 mL labs sent including cell count differential, biochemistry, cytology and culture, chest x-rays pending no immediate complication noted
--- NOTE | 2020-07-10 11:42 | XR ---
EXAMINATION TYPE: XR chest 1V portable DATE OF EXAM: 07/10/2020 CLINICAL HISTORY: Difficulty breathing progress study. Post right-sided thoracentesis. TECHNIQUE: Single AP portable upright view of the chest is obtained. COMPARISON: Chest x-ray from one day earlier and older studies. FINDINGS: Small right pleural fluid collection slightly improved from most recent prior. No pneumoth orax. Associated right basilar atelectasis. Left lung remains clear. Cardiac silhouette size stable a nd upper limits of normal. Right-sided rib fractures not well seen on plain films. IMPRESSION: No pneumothorax after right-sided thoracentesis.
[2020-07-10] MEDS: SODIUM CHLORIDE 0.9% 1,000 ML IV SCH (12:07)
[2020-07-10 14:57] LABS: Appearance,BF Cloudy; Color,BF Orange; Nucleated Cells, Body Fluid 1700 /uL; RBC, Body Fluid 12900 /uL
[2020-07-10 15:00] LABS: Mononuclear WBC,Body Fluid 50 %; Polynuclear WBC,Body Fluid 2 %; Total Cells Counted,Body Fluid 100
[2020-07-10] MEDS: ALPRAZolam 0.5 MG TAB PO SCH (20:38)
[2020-07-10] MEDS: ATORVASTATIN 10 MG TAB PO SCH (20:38)
[2020-07-11 04:00] LABS: Amylase, Fluid Source Pleural Fluid; LDH, Body Fluid Source Pleural Fluid
[2020-07-11] MEDS: KETOROLAC 15 MG/ML 1 ML VIAL IVP PRN ×4 (06:04→23:31)
[2020-07-11] MEDS: FORMOTEROL FUMARATE 20 MCG/2 ML NEBU INHALATION SCH ×2 (07:49→20:20)
[2020-07-11] MEDS: IPRATROPIUM 0.5 MG/2.5 ML NEBU INHALATION SCH (07:49)
[2020-07-11] MEDS: methylPREDNISolone SOD SUCCI 40 MG/ML 1 ML VIAL IV SCH ×3 (08:08→23:32)
[2020-07-11] MEDS: CLOPIDOGREL 75 MG TAB PO SCH (08:09)
[2020-07-11] MEDS: SODIUM CHLORIDE 0.9% 1,000 ML IV SCH (10:23)
[2020-07-11 11:13] LABS: Cholesterol 170 mg/dL (<200); HDL Cholesterol 42 mg/dL (40-60); LDL Cholesterol,Calculated 107 mg/dL (0-99); Triglycerides 103 mg/dL (<150)
[2020-07-11] MEDS: IPRATROPIUM-ALBUTEROL 3 ML NEB INHALATION SCH ×3 (11:20→20:19)
[2020-07-11] MEDS: POTASSIUM CHLORIDE ER 20 MEQ TAB.ER PO SCH (12:09)
--- NOTE | 2020-07-11 12:09 | PN ---
PROGRESS NOTE A 54-year-old white male who had paracentesis done for pleural fluid. Cytology is pending. Dr. King saw the patient and most likely diagnosis is large right perfusion secondary to probably pneumonia. He is started on IV antibiotics. He wants him on IV antibiotics over the weekend. Lungs show scattered rhonchi and wheeze. Decreased breath sounds right side. Cardiovascular S1-S2. Psych anxious and nervous. Neurologic alert orient x3. ASSESSMENT: 1. Right-sided chest pain. 2. Cough. 3. Large right-sided pleural effusion. 4. Developing complicated perfusion. 5. Rib fractures. 6. Risk of pulmonary neoplasm unsure. 7. Chronic obstructive pulmonary disease. 8. Obesity. 9. Prior stroke. 10.100% left internal carotid blockage. Broad-spectrum antibiotics are ordered. Await for paracentesis fluid to come back. Prognosis guarded. Continue with current antibiotics. MMODL / IJN: [id number] /
[2020-07-11] MEDS: FUROSEMIDE 40 MG TAB PO SCH (12:10)
[2020-07-11] MEDS: METOPROLOL SUCCINATE (ER) 50 MG TAB.ER.24H PO SCH (12:10)
[2020-07-11 12:13] LABS: Basophils # (A) 0.02 X 10*3/uL (0.00-0.10); Basophils % (A) 0.2 %; Eosinophils # (A) 0.03 X 10*3/uL (0.04-0.35); Eosinophils % (A) 0.2 %; HCT 38.7 % (39.6-50.0); HGB 12.3 g/dL (13.0-17.0); Lymphocytes # (A) 0.92 X 10*3/uL (0.90-5.00); Lymphocytes % (A) 7.3 %; MCH 30.8 pg (27.0-32.0); MCHC 31.8 g/dL (32.0-37.0); MCV 96.8 fL (80.0-97.0); Mean Platelet Volume 10.5 fL (9.5-12.2); Monocytes # (A) 0.68 X 10*3/uL (0.20-1.00); Monocytes % (A) 5.4 %; Neutrophils # (A) 10.76 X 10*3/uL (1.80-7.70); Neutrophils % (A) 85.9 %; Platelet Count 270 X 10*3/uL (140-440); RDW 13.2 % (11.5-14.5); WBC 12.53 X 10*3/uL (4.50-10.00)
[2020-07-11 14:26] LABS: T4, Free (Free Thyroxine) 1.13 ng/dL (0.78-2.19)
[2020-07-11 16:49] LABS: Glucose,Whole Blood 117 mg/dL (75-99)
[2020-07-11] MEDS: ATORVASTATIN 10 MG TAB PO SCH (19:53)
[2020-07-11] MEDS: BUDESONIDE 0.5 MG/2 ML NEBU INHALATION SCH (20:19)
[2020-07-11] MEDS: ALPRAZolam 0.5 MG TAB PO SCH (21:55)
[2020-07-12] MEDS: SODIUM CHLORIDE 0.9% 1,000 ML IV SCH (05:39)
[2020-07-12] MEDS: KETOROLAC 15 MG/ML 1 ML VIAL IVP PRN ×3 (05:42→18:04)
[2020-07-12] MEDS: METOPROLOL SUCCINATE (ER) 50 MG TAB.ER.24H PO SCH (07:45)
[2020-07-12] MEDS: FUROSEMIDE 40 MG TAB PO SCH (07:45)
[2020-07-12] MEDS: CLOPIDOGREL 75 MG TAB PO SCH (07:45)
[2020-07-12] MEDS: methylPREDNISolone SOD SUCCI 40 MG/ML 1 ML VIAL IV SCH ×3 (07:45→23:56)
[2020-07-12] MEDS: PANTOPRAZOLE 40 MG TABLET PO SCH (07:45)
[2020-07-12] MEDS: BUDESONIDE 0.5 MG/2 ML NEBU INHALATION SCH ×2 (07:51→18:46)
[2020-07-12] MEDS: FORMOTEROL FUMARATE 20 MCG/2 ML NEBU INHALATION SCH ×2 (07:51→18:46)
[2020-07-12] MEDS: IPRATROPIUM-ALBUTEROL 3 ML NEB INHALATION SCH ×4 (07:51→18:46)
[2020-07-12] MEDS: POTASSIUM CHLORIDE ER 20 MEQ TAB.ER PO SCH (09:13)
[2020-07-12 11:44] LABS: Basophils # (A) 0.02 X 10*3/uL (0.00-0.10); Basophils % (A) 0.2 %; Eosinophils # (A) 0 X 10*3/uL (0.04-0.35); Eosinophils % (A) 0 %; HGB 12.4 g/dL (13.0-17.0); Lymphocytes # (A) 0.94 X 10*3/uL (0.90-5.00); Lymphocytes % (A) 7.7 %; MCH 30.8 pg (27.0-32.0); MCHC 31.8 g/dL (32.0-37.0); MCV 96.8 fL (80.0-97.0); Mean Platelet Volume 10.4 fL (9.5-12.2); Monocytes # (A) 0.55 X 10*3/uL (0.20-1.00); Monocytes % (A) 4.5 %; Neutrophils % (A) 86.3 %; Platelet Count 252 X 10*3/uL (140-440); RBC 4.03 X 10*6/uL (4.40-5.60); RDW 13.4 % (11.5-14.5); WBC 12.17 X 10*3/uL (4.50-10.00)
[2020-07-12 12:13] LABS: African American GFR (CKD) 122.3 (60.0-200.0); Albumin 3.8 g/dL (3.80-4.90); Anion Gap 5.5 mmol/L (4.00-12.00); BUN/Creat Ratio 31.43 Ratio (12.00-20.00); Calcium 9.3 mg/dL (8.7-10.3); Carbon Dioxide 27.5 mmol/L (21.6-31.8); Globulin 1.9 g/dL (1.6-3.3); Non-African American GFR(CKD) 105.5 (60.0-200.0); Potassium 4.3 mmol/L (3.5-5.5); Total Bilirubin 0.2 mg/dL (0.3-1.2); Total Protein 5.7 g/dL (6.2-8.2)
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
[2020-07-12] MEDS: ALPRAZolam 0.5 MG TAB PO SCH (22:18)
[2020-07-12] MEDS: ATORVASTATIN 10 MG TAB PO SCH (22:18)
[2020-07-12] MEDS: HYDROcodone/APAP 5-325MG 1 EACH TAB PO PRN (23:56)
[2020-07-13] MEDS: SODIUM CHLORIDE 0.9% 1,000 ML IV SCH ×2 (02:55→15:27)
[2020-07-13] MEDS: HYDROcodone/APAP 5-325MG 1 EACH TAB PO PRN ×4 (04:31→17:09)
[2020-07-13] MEDS: BUDESONIDE 0.5 MG/2 ML NEBU INHALATION SCH ×2 (08:44→19:07)
[2020-07-13] MEDS: IPRATROPIUM-ALBUTEROL 3 ML NEB INHALATION SCH ×4 (08:44→19:07)
[2020-07-13] MEDS: FORMOTEROL FUMARATE 20 MCG/2 ML NEBU INHALATION SCH ×2 (08:44→19:07)
[2020-07-13] MEDS: METOPROLOL SUCCINATE (ER) 50 MG TAB.ER.24H PO SCH (08:59)
[2020-07-13] MEDS: methylPREDNISolone SOD SUCCI 40 MG/ML 1 ML VIAL IV SCH ×3 (08:59→22:52)
[2020-07-13] MEDS: CLOPIDOGREL 75 MG TAB PO SCH (08:59)
[2020-07-13] MEDS: FUROSEMIDE 40 MG TAB PO SCH (08:59)
[2020-07-13] MEDS: PANTOPRAZOLE 40 MG TABLET PO SCH (08:59)
[2020-07-13] MEDS: POTASSIUM CHLORIDE ER 20 MEQ TAB.ER PO SCH (08:59)
--- NOTE | 2020-07-13 10:56 | P.PN ---
Subjective Progress Note Date: 07/13/20 Principal diagnosis: right-sided chest pain with cough and shortness of breath large right-sided exudative pleural effusion, parapneumonic effusion Right-sided pneumonia early organization of pleural effusion with developing complicated pleural effusion at the bases Rib fractures Risk of pulmonary neoplasm cannot be excluded likely COPD Morbid obesity and obstructive sleep apnea History of stroke with 100% occluded left internal carotid 07/13/2020, patient seen eval examined during the rounds labs reviewed medications reviewed care plan discussed with the patient at length, reviewing more comfortably pain and shortness of breath improved significantly, oxygen sat uration is 98% on room air off of oxygen now, pleural fluid many white blood cells seen no organism seen no growth in last 48 hours, so far negative fungal culture and AFB, no anaerobes isolated, biochemistry of pleural fluid suggest exudative effusion, cytology is pending, this is a 54-year-old male with extensive history of smoking and nicotine use 2 packs per day for about 25 years quit few months ago, patient came into the hospital and admitted directly from primary care's office due to right-sided chest pain shortness of breath and coughing pain has been unbearable, he relates his present problems to a slip and fall back in May from his is stairs hit right side of the chest had some pain but according to him he second up it got better until restarted made of June again and felt that something cracked on the right side of the chest in the last few days pain has been unbearable with coughing spell causing more pain and progressive shortness of breath patient decided to come into the primary care office from there admitted to hospital. his chest x-ray shows large right-sided pleural effusion confirmed on the computed tomography scan however computed tomography scan showed early organization of pleural fluid especially at the bottom in the form of early loculations. Patient does have a history of stroke found to have the 100% stenosis of left carotid artery,has been taking antilipid agent he was taking Plavix in the past which she stopped however he is restarted did a dose has been given this morning I discussed with the patient's at length about slightly high risk of bleeding complication being on Plavix but on the other hand development of organized pleural fluid is at risk for waiting a week. Patient understand the risks and would like to proceed with procedure Objective - Vital Signs Vital signs: Vital Signs Temp 97.8 F 07/13/20 08:00 Pulse 84 07/13/20 09:04 Resp 19 07/13/20 08:00 BP 151/85 07/13/20 08:00 Pulse Ox 94 L 07/13/20 08:00 Intake & Output 07/12/20 07/13/20 07/13/20 18:59 06:59 18:59 Output Total 200 Balance -200 Output: Urine 200 Other: # Voids 3 3 - Exam - Constitutional General appearance: mild distress, obese - EENT Eyes: EOMI, PERRLA Ears: bilateral: normal - Neck Neck: normal ROM Carotids: bilateral: upstroke normal Thyroid: bilateral: normal size - Respiratory Respiratory: Bilateral good breath sounds with minimal dullness to percussion and decrease in air entry at the right base, significantly improved compared to yesterday exam - Cardiovascular Rhythm: regular Heart sounds: normal: S1, S2 - Gastrointestinal General gastrointestinal: distended, soft - Musculoskeletal Musculoskeletal: gait normal, generalized weakness, strength equal bilaterally - Psychiatric Psychiatric: A&O x's 3, appropriate affect, intact judgment & insight - Labs CBC & Chem 7: 07/12/20 07:34 07/12/20 07:34 Labs: Abnormal Lab Results - Last 24 Hours (Table) 07/12/20 07/12/20 Range/Units 07:34 07:34 WBC 12.17 H (4.50-10.00) X 10*3/uL RBC 4.03 L (4.40-5.60) X 10*6/uL Hgb 12.4 L (13.0-17.0) g/dL Hct 39.0 L (39.6-50.0) % MCHC 31.8 L (32.0-37.0) g/dL Immature Gran # 0.16 H (0.00-0.04) X 10*3/uL Neutrophils # 10.50 H (1.80-7.70) X 10*3/uL Eosinophils # 0 L (0.04-0.35) X 10*3/uL BUN/Creatinine Ratio 31.43 H (12.00-20.00) Ratio Glucose 159 H (70-110) mg/dL Total Bilirubin 0.2 L (0.3-1.2) mg/dL Total Protein 5.7 L (6.2-8.2) g/dL Microbiology - Last 24 Hours (Table) 07/10/20 11:00 Anaerobic Culture - Preliminary Pleural Fluid 07/10/20 10:52 Gram Stain - Preliminary Thoracic Fluid Body Fluid Culture - Preliminary Assessment and Plan Assessment: right-sided chest pain with cough and shortness of breath large right-sided exudative pleural effusion, parapneumonic effusion Right-sided pneumonia early organization of pleural effusion with developing complicated pleural effusion at the bases Rib fractures Risk of pulmonary neoplasm cannot be excluded likely COPD Morbid obesity and obstructive sleep apnea History of stroke with 100% occluded left internal carotid Plan: Reviewed results of the thoracentesis discussed with the patient at length, cytology is pending Patient can be discharged home tomorrow on oral Medrol Dosepak and oral Augmentin for another 5-7 days Follow-up in outpatient likely will need bronchoscopy and repeat computed tomography scan down the road Broad-spectrum antibiotics can be changed to oral at the time of discharge Patient will need sleep study as well as outpatient and will arrange Time with Patient: Greater than 30
--- NOTE | 2020-07-13 19:17 | PN ---
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 He had a traumatic hemoperitoneum which 2 L of serosanguineous bloody fluid was removed. A lot of red cells in the fluid. The patient is started on Augmentin and prednisone for possible rib injuries and possible pneumonia. The patient is cleared to go home tomorrow. He is sitting up in bed, saturating in the high 90s, 94 on room air, temperature 98.3, pulse 88, respiratory rate 16 to 18. Blood pressure 120s/70s. CARDIOVASCULAR: S1, S2. LUNGS shows wheezes x4. HEMATOLOGY: Negative Homans. PSYCH: Fair mood and affect. ASSESSMENT: 1. Hematopneumothorax. Patient clinically stable. 2. Chronic obstructive pulmonary disease. 3. Rib fractures. So far all cultures are negative. He will be able to be discharged home in the morning. Continue on Toradol overnight and possibly some Toradol pill to go home with. He can possibly go home tomorrow. MMODL / IJN: [id number] /
[2020-07-13] MEDS: ATORVASTATIN 10 MG TAB PO SCH (20:13)
[2020-07-13] MEDS: ALPRAZolam 0.5 MG TAB PO SCH (20:13)
[2020-07-13] MEDS: KETOROLAC 15 MG/ML 1 ML VIAL IVP PRN (20:15)
[2020-07-14 00:41] VITALS: RESP 16
[2020-07-14] MEDS: KETOROLAC 15 MG/ML 1 ML VIAL IVP PRN ×3 (03:12→14:11)
[2020-07-14] MEDS: IPRATROPIUM-ALBUTEROL 3 ML NEB INHALATION SCH ×2 (07:07→11:16)
[2020-07-14] MEDS: BUDESONIDE 0.5 MG/2 ML NEBU INHALATION SCH (07:07)
[2020-07-14] MEDS: FORMOTEROL FUMARATE 20 MCG/2 ML NEBU INHALATION SCH (07:07)
[2020-07-14] MEDS: FUROSEMIDE 40 MG TAB PO SCH (07:54)
[2020-07-14] MEDS: PANTOPRAZOLE 40 MG TABLET PO SCH (07:54)
[2020-07-14] MEDS: METOPROLOL SUCCINATE (ER) 50 MG TAB.ER.24H PO SCH (07:54)
[2020-07-14] MEDS: POTASSIUM CHLORIDE ER 20 MEQ TAB.ER PO SCH (07:54)
[2020-07-14] MEDS: CLOPIDOGREL 75 MG TAB PO SCH (07:54)
[2020-07-14] MEDS: methylPREDNISolone SOD SUCCI 40 MG/ML 1 ML VIAL IV SCH (07:54)
[2020-07-14 10:05] VITALS: BP 148/61; TEMP 98
[2020-07-14 11:26] VITALS: PULSE 80
[2020-07-15] MEDS ORDERED: ETODOLAC 400 MG TAB PO SCH (09:00)
== END 2020-07-14 15:17 | disposition home or self-care (01) | DRG 199 ==
LOC: 4SSUR 15:11 → OBSVTOIN 07-11 23:07
PROVIDERS: ADMIT Family Medicine; ATTEND Family Medicine
PROC: 0W993ZZ Drainage of Right Pleural Cavity, Percutaneous Approach (ICD-10-PCS; principal; 2020-07-10)
DX: S27.2XXA Traumatic hemopneumothorax, initial encounter (principal); J18.9 Pneumonia, unspecified organism; S22.41XA Multiple fractures of ribs, right side, initial encounter for closed fracture; J44.1 Chronic obstructive pulmonary disease with (acute) exacerbation; J91.8 Pleural effusion in other conditions classified elsewhere; J44.0 Chronic obstructive pulmonary disease with (acute) lower respiratory infection; Z68.41 Body mass index [BMI] 40.0-44.9, adult; E66.01 Morbid (severe) obesity due to excess calories; F10.20 Alcohol dependence, uncomplicated; F17.200 Nicotine dependence, unspecified, uncomplicated; I10 Essential (primary) hypertension; E78.5 Hyperlipidemia, unspecified; R09.02 Hypoxemia; R06.03 Acute respiratory distress; I65.22 Occlusion and stenosis of left carotid artery; F41.9 Anxiety disorder, unspecified; G47.33 Obstructive sleep apnea (adult) (pediatric); W10.9XXA Fall (on) (from) unspecified stairs and steps, initial encounter; Z86.73 Personal history of transient ischemic attack (TIA), and cerebral infarction without residual deficits; Z79.899 Other long term (current) drug therapy; Z79.02 Long term (current) use of antithrombotics/antiplatelets; Z90.49 Acquired absence of other specified parts of digestive tract; Z98.890 Other specified postprocedural states; Z91.013 Allergy to seafood; Z82.5 Family history of asthma and other chronic lower respiratory diseases; Z83.3 Family history of diabetes mellitus
CPT/HCPCS: 71045; 71260; 76604; 80053; 80061; 82150; 83036; 83615; 83880; 84153; 84157; 84439; 84443; 84484; 85025; 85379; 85610; 87070; 87075; 87102; 87116; 87205; 87206; 88108; 88305; 89050; 93005; 94640; 94760

== ENCOUNTER 2020-08-07 15:04 | Observation (INO) | payer MEDICARE ==
[2020-08-07] MEDS ORDERED: SODIUM CHLORIDE 0.9% 1,000 ML IV STA (16:07)
--- NOTE | 2020-08-07 17:17 | XR ---
EXAMINATION TYPE: XR chest 2V DATE OF EXAM: 08/07/2020 COMPARISON: 07/10/2020 HISTORY: Difficulty breathing TECHNIQUE: 2 views FINDINGS: There is moderate right pleural effusion. Left lung is fairly clear. Heart and mediastinum are normal. There are no hilar masses. There are chest leads. There is no pneumothorax. IMPRESSION: Right pleural effusion is increased compared to old exam. Normal heart. No heart failure.
[2020-08-07 19:41] LABS: Basophils # (A) 0.1 k/uL (0-0.2); Basophils % (A) 1 %; Eosinophils # (A) 0.3 k/uL (0-0.7); Eosinophils % (A) 3 %; HGB 13.7 gm/dL (13.0-17.5); Lymphocytes # (A) 1.6 k/uL (1.0-4.8); Lymphocytes % (A) 19 %; MCH 30.6 pg (25.0-35.0); MCHC 33.4 g/dL (31.0-37.0); MCV 91.6 fL (80.0-100.0); Mean Platelet Volume 6.8; Monocytes # (A) 0.5 k/uL (0-1.0); Monocytes % (A) 6 %; Neutrophils % (A) 69 %; Platelet Count 277 k/uL (150-450); RBC 4.47 m/uL (4.30-5.90); WBC 8.6 k/uL (3.8-10.6)
[2020-08-07 19:50] LABS: ALT 27 U/L (4-49); AST 27 U/L (17-59); African American GFR (CKD) >90 (>60 ml/min/1.73 sqM); Albumin 3.9 g/dL (3.5-5.0); Alkaline Phosphatase 102 U/L (38-126); Anion Gap 9 mmol/L; Blood Urea Nitrogen 15 mg/dL (9-20); Calcium 9.3 mg/dL (8.4-10.2); Carbon Dioxide 25 mmol/L (22-30); Chloride 106 mmol/L (98-107); Glucose 92 mg/dL (74-99); Non-African American GFR(CKD) >90 (>60 ml/min/1.73 sqM); Potassium 4.6 mmol/L (3.5-5.1); Sodium 140 mmol/L (137-145); Total Bilirubin 0.6 mg/dL (0.2-1.3); Total Protein 6.6 g/dL (6.3-8.2)
[2020-08-07 20:00] LABS: INR 0.9 (<1.2); Partial Thromboplastin Time 23.4 sec (22.0-30.0); Prothrombin Time 10.1 sec (9.0-12.0)
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
[2020-08-07 20:33] LABS: D-Dimer 1.52 mg/L FEU (<0.60)
[2020-08-07] MEDS ORDERED: methylPREDNISolone SOD SUCCI 125 MG/2 ML VIAL IV STA (21:13)
[2020-08-07] MEDS ORDERED: FAMOTIDINE 20 MG/2 ML VIAL IV STA (21:14)
[2020-08-07] MEDS ORDERED: diphenhydrAMINE 50 MG/ML 1 ML VIAL IVP STA ×2 (21:14→23:37)
--- NOTE | 2020-08-07 22:29 | CT ---
EXAMINATION TYPE: CT chest angio for PE DATE OF EXAM: 08/07/2020 COMPARISON: 07/09/2020 HISTORY: Elevated d-dimer, previous rib fracture with hemothorax. CT DLP: 658 mGycm Automated exposure control for dose reduction was used. CONTRAST: Performed with IV Contrast, patient injected with 100 mL of Isovue 300. There are 3-D post processed images. There is moderate-sized right pleural effusion. There is atelectasis right lower lobe. The left lung is fairly clear. There is no pleural fluid seen on the left side. Heart size is normal. There is no p ericardial effusion. I see no evidence of filling defect in the pulmonary arteries. Thoracic aorta is intact. There is no aneurysm or dissection. There is gynecomastia. There is no mediastinal adenopathy. There are no hilar masses. There is intact thoracic spine. There is no compression fracture. There is some air in the e sophagus that could relate to reflux disease. IMPRESSION: Large right pleural effusion with right lower lobe atelectasis and infiltrate. No evidence of pulmona ry embolism. Pulmonary abnormalities not changed compared to old exam.
[2020-08-07] MEDS ORDERED: NALOXONE 0.4 MG/ML 1 ML VIAL IV PRN (23:32)
[2020-08-07] MEDS ORDERED: LORazepam 2 MG/ML INJ IV STA (23:37)
[2020-08-08 00:55] LABS: Appearance,Urine Clear (Clear); Bilirubin,Urine Negative (Negative); Blood,Urine Negative (Negative); Color,Urine Yellow; Glucose,Urine (UA) Negative (Negative); Ketones,Urine Negative (Negative); Leukocyte Esterase,Urine Negative (Negative); Nitrite,Urine Negative (Negative); PH, Urine 5.5 (5.0-8.0); Protein,Urine Negative (Negative); Urobilinogen,Urine <2.0 mg/dL (<2.0)
[2020-08-08 01:36] LABS: Specific Gravity,Urine >1.050 (1.001-1.035)
[2020-08-08] MEDS: SODIUM CHLORIDE 0.9% 1,000 ML IV SCH (02:40)
--- NOTE | 2020-08-08 08:51 | US ---
EXAMINATION TYPE: US chest DATE OF EXAM: 08/08/2020 COMPARISON: NONE CLINICAL HISTORY: Markings for thoracentesis by pulmonary staff. right pleural effusion TECHNIQUE: Targeted ultrasound of the posterior lower bilateral hemithoraces EXAM MEASUREMENTS: Right Pleural Effusion pocket size: 13.7 cm Right skin surface to fluid distance: 5.5 cm Left Pleural Effusion pocket size: no fluid seen Right side marked for possible thoracentesis outside the dept. Left side NOT marked for possible thoracentesis outside the dept. Pulmonologists are able to review the images in the patient?s EMR. IMPRESSIONS: Large right pleural effusion. No left pleural effusion.
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
[2020-08-08] MEDS: FUROSEMIDE 40 MG TAB PO SCH (12:16)
[2020-08-08] MEDS: PANTOPRAZOLE 40 MG TABLET PO SCH (12:16)
[2020-08-08] MEDS: METOPROLOL SUCCINATE (ER) 50 MG TAB.ER.24H PO SCH (12:16)
[2020-08-08] MEDS: TERBINAFINE 250 MG TAB PO SCH (12:16)
[2020-08-08] MEDS: POTASSIUM CHLORIDE ER 20 MEQ TAB.ER PO SCH (12:17)
[2020-08-08] MEDS ORDERED: ATORVASTATIN 10 MG TAB PO SCH (12:30)
[2020-08-08] MEDS ORDERED: ASPIRIN 81 MG PO SCH (12:30)
--- NOTE | 2020-08-08 12:35 | HP ---
HISTORY AND PHYSICAL A 55-year-old white male who returns to the hospital for right-sided chest pain. He had a thoracentesis done on July 14. He is back again due to a large amount of swelling on the right side of his lung. He will have to be admitted and have Pulmonology see him for shortness of breath and recurrent pleural effusion. He is currently on Plavix and aspirin for family history of stroke and carotid stenosis. Apparently, Pulmonary saw him and they are going to hold his Plavix and possibly aspirin and possibly have his thoracentesis done again. PAST MEDICAL HISTORY: CVA, TIA, GERD, GI bleed, hypertension, dyslipidemia, sleep apnea, anxiety, depression, panic disorder, PTSD. PAST SURGICAL HISTORY: Appendectomy, back surgery, left shoulder replacement. SOCIAL HISTORY: Daily alcohol heavy. Former smoker, he drinks 7 nights a week. He drinks 7-9 25 ounce Natural beers a day. He stopped drinking in June of 2020. FAMILY HISTORY: Father and mother with diabetes, hypertension and prior strokes. MEDICINES: Xanax 0.5 q.h.s. p.r.n., Plavix 75 daily, Zocor 20 daily, Lasix 40 daily, Toprol-XL 50 daily, omeprazole 40 daily, potassium chloride 20 mEq daily, Lamisil 250 daily, aspirin 81 daily, Trelegy 1 puff daily, Trintellix 5 mg daily, Benadryl 50-75 q.h.s. ALLERGIES: SHELLFISH AND SEAFOOD. PHYSICAL EXAM: VITAL SIGNS: Temp 98, pulse 80s to 90s, respiratory rate 18 to 20, blood pressure 120s to 140s over 70s to 80s, O2 94 to 97%. CARDIOVASCULAR: S1-S2. LUNGS: Decreased breath sounds at the left side of the base. HEENT: Normocephalic, atraumatic. CARDIOVASCULAR: S1, S2. ABDOMEN: Soft, nontender. EXTREMITIES: 2 to 3+ edema. NEUROLOGIC: Cranial nerves are intact. LABS: Reviewed CT scans reviewed. ASSESSMENT: 1. Recurrent right-sided pleural effusion, hemopneumothorax, status post right-sided thoracentesis. 2. History of cerebrovascular accident. 3. Dyslipidemia. 4. Obesity. 5. Nicotine addiction. 6. Chronic obstructive pulmonary disease. 7. Carotid stenosis. 8. Prior strokes. Apparently, they stopped the Plavix and aspirin so they can do thoracentesis. Thoracentesis will have to be done after Plavix and aspirin are stopped for a couple days. Prognosis extremely guarded. JOHN / YOAVN: [id number] /
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
[2020-08-08] MEDS ORDERED: diphenhydrAMINE 50 MG/ML 1 ML VIAL IVP STA (14:18)
--- NOTE | 2020-08-08 16:08 | CT ---
EXAMINATION TYPE: CT brain wo con DATE OF EXAM: 08/08/2020 COMPARISON: 03/07/2018 HISTORY: Right hand weakness. History of stroke. CT DLP: 1063.4 mGycm Automated exposure control for dose reduction was used. There is some cerebral cortical atrophy. There is no mass effect nor midline shift. There is no sign of intracranial hemorrhage. There is grade white matter hypodensity in the left posterior frontal lob e that measures 4 cm and consistent with an old infarct. Unchanged. There is also 1.5 cm hypodensity right posterior frontal lobe white matter consistent with an old infarct. Calvarium is intact. The sk ull base is intact. IMPRESSION: Old bilateral infarcts. No acute intracranial abnormality. Cerebral atrophy.
--- NOTE | 2020-08-08 16:16 | CT ---
EXAMINATION TYPE: CT angio head neck DATE OF EXAM: 08/08/2020 COMPARISON: CTA of the neck 05/22/2013 HISTORY: Right hand weakness, history of left carotid occlusion and stroke. CT DLP: 541.9 mGycm Automated exposure control for dose reduction was used. CONTRAST: Performed with IV Contrast, patient injected with 65ml mL of Isovue 370. Images obtained from the aortic arch to the vertex of the brain with IV contrast and 3-D post process ed images. There is some pleural thickening in the right upper lobe posteriorly. There is normal branching patte rn of the great vessels on the aortic arch. Thoracic aorta is intact without sign of aneurysm or diss ection. There is arterial flow in both subclavian arteries. There is complete occlusion of the left i nternal carotid artery close to its origin. There is wide patency of the right carotid artery bifurca tion. There is bilateral arterial flow in the external carotid arteries. The common carotid arteries appear intact without evidence of aneurysm or dissection. There is arterial flow in both vertebral ar teries. Left vertebral artery is larger than the right. There is arterial flow in the vertebrobasilar artery system. There is arterial flow in the anterior middle and posterior cerebral arteries. There is arterial flow apparently in the anterior communicating artery which is filling the left middle cerebral artery on the left anterior cerebral artery. The left posterior cerebral artery appears to fill from the basila r artery. I do not see any significant flow in the left posterior communicating artery. There is brice ncy of the right side posterior communicating artery. There is no flow seen in the intracranial left internal carotid artery. There is normal contrast opacification of the venous sinuses. There is no mass effect. I see no evide nce of aneurysm or neovascularity. IMPRESSION: Complete occlusion of the left internal carotid artery close to its origin which is unchanged compare d to old exam of 05/22/2013. There is filling of the left anterior cerebral and left middle cerebral artery apparently through the anterior communicating artery. No significant stenosis seen in the intracranial vessels.
[2020-08-08] MEDS: ATORVASTATIN 40 MG TAB PO SCH (21:57)
[2020-08-08] MEDS: ALPRAZolam 0.5 MG TAB PO PRN (21:57)
[2020-08-09] MEDS: SODIUM CHLORIDE 0.9% 1,000 ML IV SCH ×2 (04:30→19:47)
--- NOTE | 2020-08-09 08:53 | P.PN ---
Subjective Progress Note Date: 08/09/20 The patient was seen at bedside and he feels about the same today compared to yesterday. He denies of any new neurological deficits. CTA of the head and neck was reported as completely occlusion of the left internal carotid artery close to its origin which is unchanged compared to old exam on 05/22/2013. There is filling of the left anterior cerebral and left middle cerebral artery apparently through the anterior communicating artery. No significant stenosis seen in the intracranial vessels. CTA of the head is reported as old bilateral infarct. No acute intracranial abnormality. Cerebral atrophy. Upon bulk in at the body of the report it is mentioned that the patient has hypodensity in the left posterior frontal lobe that measures 4 cm and consistent with an old infarct. It's unchanged. There is also 1.5 cm hypodensity over the right posterior frontal lobe. I felt there is bilateral old frontal ischemic stroke affect the left is worse in the right and it felt there is felt like the watershed infarct in KEITH/MCA territory. Objective - Vital Signs Vital signs: Vital Signs Temp 97.8 F 08/09/20 07:30 Pulse 78 08/09/20 07:30 Resp 20 08/09/20 07:30 BP 133/82 08/09/20 07:30 Pulse Ox 96 08/09/20 07:30 Intake & Output 08/08/20 08/09/20 08/09/20 18:59 06:59 18:59 Intake Total 680 Balance 680 Intake: Oral 680 Other: Voiding Method Toilet Toilet # Voids 3 1 - Exam GENERAL: The patient is lying in bed and is not in acute distress. NEUROLOGICAL: Higher mental function: The patient is awake, alert, oriented to self, place and time. Patient is following commands. No aphasia and no neglect. Cranial nerves: The pupils are round, equal and reactive to light and accommodation. Visual palmer are full to confrontation throughout. Extraocular movement is intact no nystagmus is noted. Facial sensation is normal to touch throughout. The facial strength is normal throughout. Hearing is normal bilaterally to hand rub. Tongue is midline and moved [id number] without any difficulty. No dysarthria is noted. Shoulder shrug is normal bilaterally. Motor: Gait is antalgic. The strength is 5-/5 over both hand shampoo person. The dexterity of the right hand is weak. Also bilateral elbow extension 5-/5 bilaterally (but stated having pain. Otherwise 5 over 5 throughout. Normal tone and bulk. Cerebellum: Normal finger to nose heel to andrews bilaterally. Sensation: Sensation is normal to touch throughout. Reflexes (right/left): 2+ throughout. Plantars are downgoing bilaterally. - Labs CBC & Chem 7: 08/07/20 19:30 08/07/20 19:30 Assessment and Plan Assessment: This is a 55-year-old gentleman presented to the emergency department on 08/07/2020 for shortness of breath and right-sided pain. Right handed dexterity weakness due to old stroke from chronic left internal carotid artery occlusion (10 years ago). Chronic occlusion of the left internal carotid artery (on dual antiplatelet ASA 81mg and Plavix 75mg) Bilateral frontal old ischemic stroke (left >right) and seems like watershed infarct over KEITH/MCA territory over the left. Recurrent right-sided pleural effusion, likely representing pneumothorax. Patient had right-sided thoracentesis July 10 which she had 2.10 blood removed. history of dyslipidemia Chronic History of tobacco use and quit in 03/2020 History of alcohol use with alcohol withdrawal seizures in the past (quit 03/2020) Plan: * From neuroogical stand point he doesn't need that to be on dual antiplatelets (and can be on ASA 81mg daily instead indefinetly). Patient feels more reassured the to be on dual antiplatelets for his peace of mind. Currently aspirin and Plavix are held for thoracentesis. After the procedure when Pulmonary team feels safe, I recommend to restart aspirin and a hold Plavix until no further pleural effusion/hemothorax and resolved then after that can restart Plavix * Vascular team is consulted involved so he can follow up with them as an outpatient as well. * Continue Lipitor to 40 mg daily. * Patient needs to follow-up with a neurologist as an outpatient within 3 weeks. Possibly consider further investigation of the his old stroke as an outpatient but will defer to his neurologist as an outpatient especially that he had bilateral of frontal ischemic stroke. The plan was discussed with the patient. There is no further neurological workup needed. Neurology will sign off. Please reconsult if needed. Glen Short M.D. Neuro-hospitalist Time with Patient: Less than 30
[2020-08-09] MEDS: FUROSEMIDE 40 MG TAB PO SCH (12:53)
[2020-08-09] MEDS: METOPROLOL SUCCINATE (ER) 50 MG TAB.ER.24H PO SCH (12:53)
[2020-08-09] MEDS: PANTOPRAZOLE 40 MG TABLET PO SCH (12:53)
[2020-08-09] MEDS: POTASSIUM CHLORIDE ER 20 MEQ TAB.ER PO SCH (12:53)
[2020-08-09] MEDS: TERBINAFINE 250 MG TAB PO SCH (12:53)
--- NOTE | 2020-08-09 13:50 | P.PN ---
Subjective Progress Note Date: 08/09/20 Principal diagnosis: Shortness of breath on exertion. A 55-year-old male, who was recently inpatient between July 10 and July 14 with a right-sided pleural effusion. The patient apparently fell on the ice right around May 08. He fell on his right posterior chest area, and thought that he probably fractured some ribs. Subsequent to that, he had progressive shortness of breath, and was eventually found to have a large right-sided pleural effusion. The patient was admitted to Dr. Carpio's service on July 10, discharged on July 14. At that time, Dr. King, was consulted, for right-sided pleural effusion. He had a right-sided thoracentesis, and 2.1 L of bloody fluid was removed. The patient is chronically on Plavix and aspirin. He is readmitted on August 07, through the emergency department, because of shortness of breath. Currently, he is not receiving any supplemental oxygen, or IV fluids. The chest x-ray, CAT scan, an ultrasound the right chest wall revealed a large right-sided pleural effusion, probably bloody again, from the fact that the patient's on aspirin and Plavix. Unfortunately, he is not to be able to have a thoracentesis for at least a day or 2 until the medication is no longer causing him to have a quite neuropathy. I did ask the nurse to hold the Plavix. We'll have to discontinue the aspirin as well. Again, he doesn't appear to be having much in way of distress. He is mostly short of breath on exertion. He does have a bit of cough. Progress note dated 08/09/2020. Patient seen yesterday in consultation. Please note my consultation. The patient came in with increasing shortness of breath. He was previously admitted between July 10 and July 14 for a right-sided pleural effusion, presumably secondary to a fall, and subsequent hemothorax. The patient had a thoracentesis done at that time by Dr. King, and 2.1 L of bloody fluid was removed. The patient was on Plavix and aspirin on this admission, and they were held. We will ask interventional radiology to do a thoracentesis on him tomorrow. He is in no distress. Room air saturation 96%. He's not receiving any supplemental oxygen or IV fluids. No new labs were ordered. Objective - Vital Signs Vital signs: Vital Signs Temp 97.8 F 08/09/20 07:30 Pulse 78 08/09/20 07:30 Resp 20 08/09/20 07:30 BP 133/82 08/09/20 07:30 Pulse Ox 96 08/09/20 07:30 Intake & Output 08/08/20 08/09/20 08/09/20 18:59 06:59 18:59 Intake Total 680 Balance 680 Intake: Oral 680 Other: Voiding Method Toilet Toilet # Voids 3 1 - Exam No acute distress, oriented 3. No supplemental oxygen. No use of accessory muscles or conversational dyspnea. HEENT examination is grossly unremarkable. Mucous membranes are moist. No oral lesions. Neck supple. Full range of motion. No adenopathy thyromegaly or neck vein distention. Cardiovascular examination reveals regular rhythm rate. S1-S2 normal. No S3 or S4. No discernible murmur noted. Heart rate 78 bpm. Lungs reveal clear breath sounds on the left. There are diminished breath sounds at the right base, and dullness at the right base on percussion. No crackles or wheezes. Abdomen soft bowel sounds are heard. No masses or tenderness. Extremities are intact. No cyanosis clubbing or edema. Skin is without rash or lesion. Neurologic examination is brief but nonfocal. - Labs CBC & Chem 7: 08/07/20 19:30 08/07/20 19:30 Assessment and Plan Assessment: Recurrent right-sided pleural effusion, likely representing a hemothorax. Status post right-sided thoracentesis, July 10, with 2.1 L of blood removed. History of CVA. History of hyperlipidemia. Obesity. Prior history of tobacco use. Possible COPD. Plan: Plan dated 08/08/2020. The patient has a recurrent right-sided pleural effusion. It's rather large. Unfortunately, the patient has been on Plavix and aspirin all along. This is because of his previous CVA. I've asked the nurse to stop the Plavix and the aspirin. There were taken yesterday. I reviewed the chest x-ray, computed tomography scan, an ultrasound the right chest. His previous thoracentesis was done by Dr. King. Additional recommendations and suggestions are forthcoming. He will need a thoracentesis to be done on Monday. It would be too risky to do it before that because of his chronic Plavix and aspirin use. Additional recommendations and suggestions are forthcoming. The patient is not demonstrating any respiratory difficulty whatsoever. He is not requiring any supplemental oxygen. Plan dated 08/09/2020. The patient's Plavix and aspirin were held from yesterday. Interventional radiology will be consulted for a thoracentesis. Additional recommendations and suggestions are forthcoming. Prognosis is guarded. The patient was previously seen by the other pulmonary service. The patient is in no distress. Room air saturations 96%. Time with Patient: Less than 30
[2020-08-09] MEDS: methylPREDNISolone SOD SUCCI 40 MG/ML 1 ML VIAL IV SCH (18:32)
[2020-08-09] MEDS: ATORVASTATIN 40 MG TAB PO SCH (19:46)
[2020-08-09] MEDS: IPRATROPIUM-ALBUTEROL 3 ML NEB INHALATION SCH (21:12)
[2020-08-09] MEDS: ZOLPIDEM 5 MG TAB PO PRN (22:24)
[2020-08-10] MEDS: methylPREDNISolone SOD SUCCI 40 MG/ML 1 ML VIAL IV SCH ×4 (00:05→23:37)
[2020-08-10] MEDS: SODIUM CHLORIDE 0.9% 1,000 ML IV SCH (00:05)
--- NOTE | 2020-08-10 06:59 | PN ---
PROGRESS NOTE DATE OF SERVICE: 08/09/2020 A 55-year-old white male with pleural effusion, large right hemothorax, rib contusion, carotid stenosis, prior CVA. The patient is going to have thoracentesis tomorrow. Stop Plavix and aspirin. CARDIOVASCULAR: S1, S2. Hematology negative Homans. Psych fair mood and affect. GI soft. ASSESSMENT: 1. Pleural effusion, right. 2. Large hemothorax. 3. Rib contusion. 4. Carotid stenosis. Continue current treatment. Follow up in next 24 to 48 hours for thoracentesis and possible discharge. MMODL / IJN: [id number] /
[2020-08-10] MEDS: IPRATROPIUM-ALBUTEROL 3 ML NEB INHALATION SCH ×4 (08:24→20:11)
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
[2020-08-10] MEDS: PANTOPRAZOLE 40 MG TABLET PO SCH (11:48)
[2020-08-10] MEDS: POTASSIUM CHLORIDE ER 20 MEQ TAB.ER PO SCH (11:48)
[2020-08-10] MEDS: TERBINAFINE 250 MG TAB PO SCH (11:48)
[2020-08-10] MEDS: FUROSEMIDE 40 MG TAB PO SCH (11:48)
[2020-08-10] MEDS: METOPROLOL SUCCINATE (ER) 50 MG TAB.ER.24H PO SCH (11:48)
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
[2020-08-10] MEDS: ATORVASTATIN 40 MG TAB PO SCH (20:22)
--- NOTE | 2020-08-10 20:23 | PN ---
PROGRESS NOTE This is a 55-year-old white male with large pleural effusion. He is supposed to get another thoracentesis, possibly tomorrow. Radiology is reluctant to drain it today, although he had a drain while he was on Plavix last time he was here. Temperature 97.7, pulse 84, respiratory rate 16 to 18, blood pressure 134/76, oxygen 76. CARDIOVASCULAR: S1, S2. LUNGS: Decreased breath sounds on the base. ASSESSMENT: 1. Recurrent right-sided pleural effusion. Previous thoracentesis was done. 2. History of cerebrovascular accident. 3. Obesity. 4. Chronic obstructive pulmonary disease. Possibly do another thoracentesis. Possible discharge home once done. MMODL / IJN: [id number] /
[2020-08-10] MEDS: ZOLPIDEM 5 MG TAB PO PRN (22:04)
--- NOTE | 2020-08-10 23:55 | P.PN ---
Subjective Progress Note Date: 08/10/20 Patient was seen for a follow-up. Patient initially seen by Dr. Glen Short. Please refer to his note for details. Patient is a 55-year-old male, who has history of a stroke 10 years ago with left ICA occlusion. Patient has been maintained on aspirin 81 mg and Plavix 75 mg. Patient has presented with recurrent hemorrhagic pleural effusion on the right side. Patient dual antiplatelet medications have been held in preparation for thoracentesis. Patient's computed tomography scan of the head had revealed bilateral frontal encephalomalacia with, with some left watershed area of remote infarction, with no acute process. Patient only has residual deficit including decreased fine motor dexterity of the right hand. 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 Patient denies diabetes. Patient states he has smoked 2 packs per day for 20 years, from age 25 to age 55, quit 6-7 months ago. Also has been drinking somewhat heavily for last 5 years, quit 6 or 7 months ago. Objective - Vital Signs Vital signs: Vital Signs Temp 98.1 F 08/10/20 15:36 Pulse 82 08/10/20 16:17 Resp 16 08/10/20 15:36 BP 119/68 08/10/20 15:36 Pulse Ox 94 L 08/10/20 15:36 Intake & Output 08/09/20 08/10/20 08/10/20 18:59 06:59 18:59 Intake Total 200 450 300 Balance 200 450 300 Intake: Oral 200 450 300 Other: Voiding Method Toilet Toilet Toilet # Voids 2 1 3 # Bowel Movements 1 1 - Exam On examination patient is a middle aged male, in no acute distress. Patient is alert and awake fully oriented. Speech and language functions are normal. Attention, concentration, fund of knowledge is adequate. On cranial nerve examination pupils are round and reactive to light, visual palmer are full on confrontation with no neglect. Extraocular muscles are intact with no nystagmus. Face is symmetric and tongue protrudes to the midline. Palatal elevation and sensation normal, hearing and shoulder shrug normal. On muscle strength testing there is no pronator drift and the strength is normal in arms and legs distally and proximally. There is no ataxia for [id number] testing. Tone and bulk of muscles normal. Sensations are normal with no neglect. Patient has definitely decreased fine motor dexterity of the right hand. - Labs CBC & Chem 7: 08/07/20 19:30 08/07/20 19:30 Assessment and Plan Assessment: * History of CVA due to left ICA occlusion 12 years ago. Patient has evidence of old ischemia in the left hemispheric region in the watershed territory between left KEITH/MCA. * Chronic left ICA occlusion * X tobacco use, quit 5-6 months ago. * History of alcohol abuse, quit 5 months ago * Recurrent traumatic pleural effusion. Plan: * Patient's CTA of neck showed complete occlusion of the left ICA close to his region which is unchanged compared to old exam of 05/22/2013. * CTA of head showed filling of the left anterior cerebral and left middle cerebral artery apparently to the anterior, indicating artery. No significant stenosis seen in the intracranial vessels. * Patient's antiplatelet medication regimen has been held because of recurrent hemothorax, and in preparation for possible another thoracentesis. Suggest resuming single antiplatelet agent, either aspirin 81 mg or Plavix 75 mg, as soon as cleared by pulmonary. * Patient's hemoglobin A1c 5.8 on 07/09/2020. * Lipid panel with cholesterol 170, LDL 107, HDL 42 and triglycerides 103. Continue Lipitor 40 mg.
[2020-08-11] MEDS: FUROSEMIDE 40 MG TAB PO SCH (07:26)
[2020-08-11] MEDS: methylPREDNISolone SOD SUCCI 40 MG/ML 1 ML VIAL IV SCH ×2 (07:26→15:40)
[2020-08-11] MEDS: IPRATROPIUM-ALBUTEROL 3 ML NEB INHALATION SCH ×4 (08:06→21:42)
--- NOTE | 2020-08-11 09:23 | US ---
EXAMINATION TYPE: US chest DATE OF EXAM: 08/10/2020 COMPARISON: None CLINICAL HISTORY: right side pleural effusion . TECHNIQUE: Targeted ultrasound of the posterior lower left hemithorax EXAM MEASUREMENTS: Right Pleural Effusion pocket size: 9.3 cm Right skin surface to fluid distance: 5.1 cm Right side marked for possible thoracentesis outside the dept. Pulmonologists are able to review the images in the patient?s EMR. IMPRESSIONS: As above
[2020-08-11] MEDS: PANTOPRAZOLE 40 MG TABLET PO SCH (11:59)
[2020-08-11] MEDS: TERBINAFINE 250 MG TAB PO SCH (11:59)
[2020-08-11] MEDS: METOPROLOL SUCCINATE (ER) 50 MG TAB.ER.24H PO SCH (11:59)
[2020-08-11] MEDS: POTASSIUM CHLORIDE ER 20 MEQ TAB.ER PO SCH (11:59)
--- NOTE | 2020-08-11 12:24 | P.PN ---
Progress Note - Text Progress Note Date: 08/11/20 Patient will require a nebulizer with duoneb 0.5 mg-3 mg/3 ML solution 4 times a day ,at discharge related to suspected COPD, obstructive sleep apnea, recurrent right pleural effusion. The impression and plan of care has been dictated as directed. : I performed a history and examination of this patient, discussed the same with the dictator. I agree with the dictator's note ,documented as a scribe. Any additional findings or plans will be noted.
--- NOTE | 2020-08-11 12:57 | P.PN ---
Subjective Progress Note Date: 08/11/20 Principal diagnosis: Left carotid ICA occlusion, right internal carotid artery stenosis The patient is seen and examined. Without any acute changes through the night. He denies any focal deficits, shortness of breath, or chest pain. He states he still has chest wall pain and shortness of breath especially with exertion. He is scheduled for thoracentesis today. Objective - Vital Signs Vital signs: Vital Signs Temp 97.9 F 08/11/20 07:24 Pulse 84 08/11/20 08:15 Resp 18 08/11/20 08:00 BP 161/108 08/11/20 07:24 Pulse Ox 97 08/11/20 07:24 Intake & Output 08/10/20 08/11/20 08/11/20 18:59 06:59 18:59 Intake Total 300 Balance 300 Intake: Oral 300 Other: Voiding Method Toilet Toilet Toilet # Voids 3 2 - Exam General appearance: The patient is alert, oriented, in no acute distress. HET: Head is normocephalic and atraumatic. Neck: Supple without lymphadenopathy. Trachea midline. Heart: S1 S2. Regular rate and rhythm. Lungs: Clear on the left, diminished on the right. Extremities: Normal skin color and turgor. No cyanosis, rash, ulceration, clubbing, or edema. Radial and pedal pulses are 2/4 bilaterally. Neurological: No focal deficits. Alert and oriented 3. - Labs CBC & Chem 7: 08/07/20 19:30 08/07/20 19:30 Assessment and Plan Assessment: 1. Internal carotid artery stenosis, left internal carotid artery occluded (known hx of), right ICA estimated around 50% stenosis 2. History of CVA 10 years ago was on dual antiplatelet therapy 3. Right large pleural effusion 4. History of tobacco abuse 5. History of alcohol abuse Plan: Patient was seen and examined with Dr. Casey. Recommend outpatient follow-up for carotid stenosis. Will order carotid ultrasound in the out patient setting. Patient may be discharged home from a vascular surgical standpoint. Patient to resume Plavix once cleared by pulmonology. Patient not need dual antiplatelet therapy. Thank you for this consultation, we'll sign off at this time. The impression and plan of care has been dictated as directed. Dr. Casey I performed a history and examination of this patient, discussed the same with the dictator. I agree with the dictator's note ,documented as a scribe. Any a dditional findings or plans will be noted.
--- NOTE | 2020-08-11 14:24 | PN ---
PROGRESS NOTE Danny Jackson is a 55-year-old white male who is going to get a bronchoscopy done per Dr. King. He is going get DuoNeb 4 times a day at discharge for recurrent right pleural effusion, obstructive sleep apnea, COPD of severe nature. Chest ultrasound showed large amount of pleural fluid which is going to be drained. Possibly have a bronchoscopy also. CARDIOVASCULAR: S1, S2. LUNGS: Decreased breath sounds. HEMATOLOGY: Negative Homans. PSYCH: Fair mood and affect. He has chronic carotid stenosis for which he will need to be treated with just a single agent either aspirin or Plavix, which should be started after the thoracentesis is done and bronchoscopy is done by Dr. King. Hopefully he will be able to be discharged today or tomorrow pending Dr. King's treatment. MMODL / IJN: [id number] /
[2020-08-11] MEDS ORDERED: LIDOCAINE 1% (10MG/ML) FOR IV START INTRADERMA PRN (15:12)
[2020-08-11] MEDS ORDERED: LACTATED RINGERS 1,000 ML IV SCH (15:15)
--- NOTE | 2020-08-11 19:06 | P.PN ---
Subjective Progress Note Date: 08/11/20 Principal diagnosis: Chest pain or shortness of breath and right-sided Large right-sided pleural effusion Right-sided atelectasis of right lower lobe History of CVA/TIA Hypertension hypertensive cardiovascular disease GI bleed Sleep disorder breathing and sleep apnea 08/11/2020, patient seen eval examined during the rounds labs reviewed medications reviewed care plan discussed, we'll proceed with a right-sided thoracentesis followed by bronchoscopy tomorrow if no conclusive diagnosis increase then will need a VATS procedure on the right side, procedure complication and alternative explained to the patient at great length This is a 55-year-old well-known to me with prior medical history significant for smoking and nicotine use and morbid obesity chronic pain syndrome, patient has a pain pump due to severe back pain, patient has the problem started with right-sided chest pain which she relates to her fall back in May, developed fairly large pleural effusion on the right side which was tapped over 2 L of fluid was removed, fluid shows lot of eosinophils suggestive of chronic effusion or presence of a hemothorax, however appearance of fluid not consistent with hemothorax, cytology was negative patient was subsequently discharged in stable condition never followed up came up to primary care provider a week ago with above complaints patient readmitted into hospital aspirin and Plavix on hold for last 5 days, thoracentesis being planned for tomorrow, patient will need a bronchoscopy and in case if no conclusive diagnosis achieved then will be sent t o thoracic surgery for VATS procedure Objective - Vital Signs Vital signs: Vital Signs Temp 98.5 F 08/11/20 14:45 Pulse 78 08/11/20 16:00 Resp 18 08/11/20 14:45 BP 143/78 08/11/20 14:45 Pulse Ox 96 08/11/20 14:45 Intake & Output 08/11/20 08/11/20 08/12/20 06:59 18:59 06:59 Intake Total 900 Balance 900 Intake: Oral 900 Other: Voiding Method Toilet Toilet # Voids 2 3 - Exam - Constitutional General appearance: disheveled, no acute distress, obese - EENT Eyes: EOMI, PERRLA Ears: bilateral: normal - Neck Carotids: bilateral: upstroke normal Thyroid: bilateral: normal size - Respiratory Respiratory: right: diminished, dullness - Cardiovascular Rhythm: regular Heart sounds: normal: S1, S2 - Gastrointestinal General gastrointestinal: soft - Integumentary Integumentary: normal turgor - Neurologic Neurologic: CNII-XII intact - Musculoskeletal Musculoskeletal: gait normal, strength equal bilaterally - Psychiatric Psychiatric: A&O x's 3, appropriate affect, intact judgment & insight - Labs CBC & Chem 7: 08/07/20 19:30 08/07/20 19:30 Assessment and Plan Assessment: Chest pain or shortness of breath and right-sided Large right-sided pleural effusion Right-sided atelectasis of right lower lobe History of CVA/TIA Hypertension hypertensive cardiovascular disease GI bleed Sleep disorder breathing and sleep apnea Plan: Continue to hold aspirin and Plavix Reviewed ultrasound Proceed with diagnostic and therapeutic thoracentesis later on today Patient will need a bronchoscopy, we will tentatively schedule for tomorrow morning If no conclusive diagnosis can be reached then will consider consulting thoracic surgery for VATS on the right side Time with Patient: Greater than 30
--- NOTE | 2020-08-11 19:10 | P.PCN ---
Date of Procedure: 08/11/20 Preoperative Diagnosis: Right-sided is recurrent pleural effusion, chest pain, shortness of breath Postoperative Diagnosis: As above Procedure(s) Performed: Right thoracentesis Anesthesia: local Surgeon: Bienvenido King Estimated Blood Loss (ml): 2 Condition: stable Disposition: floor Indications for Procedure: As above Operative Findings: As below Description of Procedure: Procedure of right thoracentesis explained to the patient at length, ultrasound of the right side chest is reviewed, 1% lidocaine infiltrated into the right posterior lateral thoracic wall, lidocaine was infiltrated at eighth intercostal space mid scapular line, after infiltration is stab incision was performed followed by placement of catheter in needle the needle was withdrawn catheter left and about 700 mL of bloody pleural fluid aspirated patient tolerated procedure well no complication noted
--- NOTE | 2020-08-11 19:12 | XR ---
EXAMINATION TYPE: XR chest 2V DATE OF EXAM: 08/11/2020 COMPARISON: 08/07/2020 TECHNIQUE: PA and lateral views submitted. HISTORY: Postthoracentesis FINDINGS: There is right-sided consolidation and small effusion. No sizable pneumothorax. There is interval red uction in amount of pleural fluid. Left lung clear. Heart size stable. Hyperinflation suggests COPD. Coarsened interstitium could be chronic or related to mild venous congestion. IMPRESSION: 1. Interval reduction in amount of pleural fluid on the right with persistent consolidation and small effusion. 2. No sizable pneumothorax.
[2020-08-11] MEDS ORDERED: TEMAZEPAM 15 MG CAP PO PRN (19:27)
[2020-08-11] MEDS: ATORVASTATIN 40 MG TAB PO SCH (20:32)
[2020-08-11] MEDS: SODIUM CHLORIDE 0.9% 1,000 ML IV SCH (20:33)
[2020-08-11 21:51] LABS: Appearance,BF Bloody; Color,BF Red; Nucleated Cells, Body Fluid 1500 /uL; RBC, Body Fluid 111500 /uL
[2020-08-11 22:07] LABS: Mononuclear WBC,Body Fluid 64 %; Polynuclear WBC,Body Fluid 8 %; Total Cells Counted,Body Fluid 100
[2020-08-11] MEDS: ALPRAZolam 0.5 MG TAB PO PRN (22:30)
--- NOTE | 2020-08-11 22:44 | P.PN ---
Subjective Progress Note Date: 08/11/20 08/25/2020: Patient denies any changes in his condition. No new focal symptoms. Patient states that on 05/08/2020, he was taking garbage out, when he slipped, and landed the chest on the garbage can. He broke ribs. Patient did not seek medical attention until he became very short of breath, coughing, gurgling and on 05/13/2020 was admitted to the hospital requiring drainage of 2.1 L of hemorrhagic pleural effusion on the right side. He has recurrence of symptoms over the last 1 week for which she is now admitted for similar pleural effusion. Patient today will undergo thoracentesis today. 08/10/2020: Patient was seen for a follow-up. Patient initially seen by Dr. Glen Short. Please refer to his note for details. Patient is a 55-year-old male, who has history of a stroke 10 years ago with left ICA occlusion. Patient has been maintained on aspirin 81 mg and Plavix 75 mg. Patient has presented with recurrent hemorrhagic pleural effusion on the right side. Patient dual antiplatelet medications have been held in preparation for thoracentesis. Patient's computed tomography scan of the head had revealed bilateral frontal encephalomalacia with, with some left watershed area of remote infarction, with no acute process. Patient only has residual deficit including decreased fine mo tor dexterity of the right hand. 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 Patient denies diabetes. Patient states he has smoked 2 packs per day for 20 years, from age 25 to age 55, quit 6-7 months ago. Also has been drinking somewhat heavily for last 5 years, quit 6 or 7 months ago. Objective - Vital Signs Vital signs: Vital Signs Temp 98.5 F 08/11/20 14:45 Pulse 78 08/11/20 16:00 Resp 18 08/11/20 14:45 BP 143/78 08/11/20 14:45 Pulse Ox 96 08/11/20 14:45 Intake & Output 08/10/20 08/11/20 08/11/20 18:59 06:59 18:59 Intake Total 300 600 Balance 300 600 Intake: Oral 300 600 Other: Voiding Method Toilet Toilet Toilet # Voids 3 2 3 - Exam On examination patient is a middle aged male, in no acute distress. Patient is alert and awake fully oriented. Speech and language functions are normal. Attention, concentration, fund of knowledge is adequate. On cranial nerve examination pupils are round and reactive to light, visual palmer are full on confrontation with no neglect. Extraocular muscles are intact with no nystagmus. Face is symmetric and tongue protrudes to the midline. Palatal elevation and sensation normal, hearing and shoulder shrug normal. On muscle strength testing there is no pronator drift and the strength is normal in arms and legs distally and proximally. There is no ataxia for [id number]-au-axot testing. Tone and bulk of muscles normal. Sensations are normal with no neg lect. Patient has definitely decreased fine motor dexterity of the right hand. - Labs CBC & Chem 7: 08/07/20 19:30 08/07/20 19:30 Assessment and Plan Assessment: * History of CVA due to left ICA occlusion 12 years ago. Patient has evidence of old ischemia in the left hemispheric region in the watershed territory between left KEITH/MCA. * Chronic left ICA occlusion * X tobacco use, quit 5-6 months ago. * History of alcohol abuse, quit 5 months ago * Recurrent traumatic pleural effusion, since history of fall and rib fractures on 05/08/2020. Plan: * Patient's CTA of neck showed complete occlusion of the left ICA close to its origin which is unchanged compared to old exam of 05/22/2013. * CTA of head showed filling of the left anterior cerebral and left middle cerebral artery apparently through the anterior communicating artery. No significant stenosis seen in the intracranial vessels. * Patient's antiplatelet medication regimen has been held because of recurrent hemothorax, and in preparation for possible another thoracentesis. Suggest resuming single antiplatelet agent, either aspirin 81 mg or Plavix 75 mg, as soon as cleared by pulmonary. * Patient's hemoglobin A1c 5.8 on 07/09/2020. * Lipid panel with cholesterol 170, LDL 107, HDL 42 and triglycerides 103. Continue Lipitor 40 mg. * Neurology will sign off. Please reconsult neurology if any other concerns.
[2020-08-12] MEDS ORDERED: TEMAZEPAM 15 MG CAP PO PRN (00:07)
[2020-08-12] MEDS: methylPREDNISolone SOD SUCCI 40 MG/ML 1 ML VIAL IV SCH ×2 (00:21→09:42)
[2020-08-12 04:26] VITALS: TEMP 98.1
[2020-08-12] MEDS: IPRATROPIUM-ALBUTEROL 3 ML NEB INHALATION SCH ×2 (08:00→11:53)
[2020-08-12 08:27] VITALS: BP 119/75; PULSE 75; RESP 16
[2020-08-12] MEDS: FUROSEMIDE 40 MG TAB PO SCH (09:43)
[2020-08-12 10:17] LABS: Amylase, Fluid Source Pleural Fluid; Cholesterol,BF Source Pleural Fluid; Cholesterol,Body Fluid 130 mg/dL; Glucose, BF Source Pleural Fluid; Glucose, Body Fluid 143 mg/dL; LDH, Body Fluid Source Pleural Fluid; Total Protein, Body Fluid 3800 mg/dL
--- NOTE | 2020-08-12 16:46 | P.PN ---
Subjective Progress Note Date: 08/12/20 Principal diagnosis: Chest pain or shortness of breath and right-sided Large right-sided pleural effusion Right-sided atelectasis of right lower lobe History of CVA/TIA Hypertension hypertensive cardiovascular disease GI bleed Sleep disorder breathing and sleep apnea 08/12/2020, patient was scheduled for bronchoscopy however there are issues associated with scheduling time of the bronchoscopy was gradually delayed by the anesthesia and other surgical service wants to use the suede more as well as patient wants to go to [place] and drive his own car so bronchoscopy was canceled and will reschedule it at a later date patient was to come in to the office next week 08/11/2020, patient seen eval examined during the rounds labs reviewed medications reviewed care plan discussed, we'll proceed with a right-sided thoracentesis followed by bronchoscopy tomorrow if no conclusive diagnosis increase then will need a VATS procedure on the right side, procedure complication and alternative explained to the patient at great length This is a 55-year-old well-known to me with prior medical history significant for smoking and nicotine use and morbid obesity chronic pain syndrome, patient has a pain pump due to severe back pain, patient has the problem started with right-sided chest pain which she relates to her fall back in May, developed fairly large pleural effusion on the right side which was tapped over 2 L of fluid was removed, fluid shows lot of eosinophils suggestive of chronic effusion or presence of a hemothorax, however appearance of fluid not consistent with hemothorax, cytology was negative patient was subsequently discharged in stable condition never followed up came up to primary care provider a week ago with above complaints patient readmitted into hospital aspirin and Plavix on hold for last 5 days, thoracentesis being planned for tomorrow, patient will need a bronchoscopy and in case if no conclusive diagnosis achieved then will be sent to thoracic surgery for VATS procedure Objective - Vital Signs Vital signs: Vital Signs Temp 98.1 F 08/12/20 07:00 Pulse 75 08/12/20 07:00 Resp 16 08/12/20 08:00 BP 119/75 08/12/20 07:00 Pulse Ox 95 08/12/20 07:00 Intake & Output 08/11/20 08/12/20 08/12/20 18:59 06:59 18:59 Intake Total 900 Balance 900 Intake: Oral 900 Other: Voiding Method Toilet Toilet # Voids 3 3 - Exam - Constitutional General appearance: disheveled, no acute distress, obese - EENT Eyes: EOMI, PERRLA Ears: bilateral: normal - Neck Carotids: bilateral: upstroke normal Thyroid: bilateral: normal size - Respiratory Respiratory: right: diminished, dullness - Cardiovascular Rhythm: regular Heart sounds: normal: S1, S2 - Gastrointestinal General gastrointestinal: soft - Integumentary Integumentary: normal turgor - Neurologic Neurologic: CNII-XII intact - Musculoskeletal Musculoskeletal: gait normal, strength equal bilaterally - Psychiatric Psychiatric: A&O x's 3, appropriate affect, intact judgment & insight - Labs CBC & Chem 7: 08/07/20 19:30 08/07/20 19:30 Labs: Microbiology - Last 24 Hours (Table) 08/11/20 18:45 Gram Stain - Preliminary Pleural Fluid Body Fluid Culture - Preliminary 08/11/20 18:45 Fungal Culture - Preliminary Pleural Fluid 08/11/20 18:45 Acid Fast Bacilli Culture - Preliminary Pleural Fluid Assessment and Plan Assessment: Chest pain or shortness of breath and right-sided Large right-sided pleural effusion Right-sided atelectasis of right lower lobe History of CVA/TIA Hypertension hypertensive cardiovascular disease GI bleed Sleep disorder breathing and sleep apnea Plan: May resume aspirin and Plavix Reviewed ultrasound, status post right thoracentesis Patient will need a bronchoscopy, as it cannot be performed today due to lack of availability off attendant and patient needs to go to [place] will reschedule from the outpatient services If no conclusive diagnosis can be reached then will consider consulting thoracic surgery for VATS on the right side Time with Patient: Greater than 30
== END 2020-08-12 12:45 ==
LOC: EC 15:04 → 6NMEDSUR 08-08 00:48
PROVIDERS: ADMIT Family Medicine; ATTEND Family Medicine
DX: J90 Pleural effusion, not elsewhere classified (principal); I69.331 Monoplegia of upper limb following cerebral infarction affecting right dominant side; E78.5 Hyperlipidemia, unspecified; Z90.49 Acquired absence of other specified parts of digestive tract; K21.9 Gastro-esophageal reflux disease without esophagitis; F41.0 Panic disorder [episodic paroxysmal anxiety]; F32.9 Major depressive disorder, single episode, unspecified; F43.10 Post-traumatic stress disorder, unspecified; F41.9 Anxiety disorder, unspecified; J44.9 Chronic obstructive pulmonary disease, unspecified; I65.23 Occlusion and stenosis of bilateral carotid arteries; E66.01 Morbid (severe) obesity due to excess calories; Z68.41 Body mass index [BMI] 40.0-44.9, adult; S27.2XXA Traumatic hemopneumothorax, initial encounter; G89.4 Chronic pain syndrome; I11.9 Hypertensive heart disease without heart failure; J98.11 Atelectasis; G93.89 Other specified disorders of brain; F17.210 Nicotine dependence, cigarettes, uncomplicated; G47.33 Obstructive sleep apnea (adult) (pediatric); K92.2 Gastrointestinal hemorrhage, unspecified; Z97.8 Presence of other specified devices; Z87.828 Personal history of other (healed) physical injury and trauma; Z20.822 Contact with and (suspected) exposure to COVID-19; Z87.19 Personal history of other diseases of the digestive system; Z87.01 Personal history of pneumonia (recurrent); Z99.89 Dependence on other enabling machines and devices; Z79.899 Other long term (current) drug therapy; Z79.01 Long term (current) use of anticoagulants; Z79.82 Long term (current) use of aspirin; Z79.1 Long term (current) use of non-steroidal anti-inflammatories (NSAID); Z79.51 Long term (current) use of inhaled steroids; Z91.013 Allergy to seafood; Z83.3 Family history of diabetes mellitus; Z82.5 Family history of asthma and other chronic lower respiratory diseases; Z82.3 Family history of stroke
CPT/HCPCS: 32555; 96376 ×6; 96374; 96375 ×2; 99285; 36415; 94640 ×5; 94760; 93005; 87798 ×3; 87496; 87498; 87529; 85379; 82150; 88108; 88305; 80053; 89050; 83605; 84484; 85025; 85610; 85730; 81003; 87252; 87502; 87634; 87070; 87205; 87116; 87102; 87206; 82945; 83615; 84157; 82465; 87635; 71046 ×2; 76604 ×2; 70496; 70450; 70498; 71275; G0378 ×5; J2060; J1200 ×2; J2920 ×4; J2930; Q9967 ×2

== ENCOUNTER 2020-09-18 13:08 | Observation (INO) | payer MEDICARE ==
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
[2020-09-18 13:42] LABS: Basophils # (A) 0.1 k/uL (0-0.2); Basophils % (A) 1 %; Eosinophils # (A) 0.2 k/uL (0-0.7); Eosinophils % (A) 2 %; HGB 14.6 gm/dL (13.0-17.5); Lymphocytes # (A) 1.2 k/uL (1.0-4.8); Lymphocytes % (A) 19 %; MCH 30.7 pg (25.0-35.0); MCHC 33.9 g/dL (31.0-37.0); MCV 90.7 fL (80.0-100.0); Mean Platelet Volume 7.2; Monocytes # (A) 0.3 k/uL (0-1.0); Monocytes % (A) 5 %; Neutrophils # (A) 4.4 k/uL (1.3-7.7); Neutrophils % (A) 71 %; Platelet Count 225 k/uL (150-450); RBC 4.74 m/uL (4.30-5.90); RDW 14.1 % (11.5-15.5); WBC 6.2 k/uL (3.8-10.6)
[2020-09-18 13:51] LABS: INR 0.9 (<1.2); Prothrombin Time 10.1 sec (9.0-12.0)
[2020-09-18 14:00] LABS: Partial Thromboplastin Time 20.9 sec (22.0-30.0)
[2020-09-18 14:01] LABS: AST 24 U/L (17-59); African American GFR (CKD) >90 (>60 ml/min/1.73 sqM); Albumin 4.4 g/dL (3.5-5.0); Anion Gap 10 mmol/L; Blood Urea Nitrogen 16 mg/dL (9-20); Calcium 9.7 mg/dL (8.4-10.2); Carbon Dioxide 25 mmol/L (22-30); Chloride 102 mmol/L (98-107); Glucose 103 mg/dL (74-99); Magnesium 2.2 mg/dL (1.6-2.3); Non-African American GFR(CKD) >90 (>60 ml/min/1.73 sqM); Potassium 4.9 mmol/L (3.5-5.1); Sodium 137 mmol/L (137-145); Total Bilirubin 0.8 mg/dL (0.2-1.3); Total Protein 7.1 g/dL (6.3-8.2)
[2020-09-18 14:02] LABS: ALT 16 U/L (4-49); Alkaline Phosphatase 79 U/L (38-126); Creatine Kinase 55 U/L (55-170)
[2020-09-18] MEDS ORDERED: NALOXONE 0.4 MG/ML 1 ML VIAL IV PRN (16:32)
[2020-09-18] MEDS ORDERED: ALPRAZolam 0.5 MG TAB PO PRN (16:39)
[2020-09-18] MEDS ORDERED: NON FORMULARY DRUG (Suvorexant [Belsomra] 20 MG Tablet) PO PRN (16:39)
[2020-09-18] MEDS ORDERED: IPRATROPIUM-ALBUTEROL 3 ML NEB INHALATION PRN (16:39)
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
[2020-09-18] MEDS ORDERED: ZOLPIDEM 5 MG TAB PO SCH (21:00)
[2020-09-18] MEDS ORDERED: diphenhydrAMINE 25 MG CAP PO PRN (21:00)
[2020-09-18] MEDS: SYMBICORT 80-4.5 MCG INHALER INHALATION SCH (21:00)
[2020-09-18] MEDS: IPRATROPIUM 0.5 MG/2.5 ML NEBU INHALATION SCH (21:01)
[2020-09-19 07:12] VITALS: BP 129/76; RESP 16; TEMP 98
[2020-09-19] MEDS: SYMBICORT 80-4.5 MCG INHALER INHALATION SCH (08:34)
[2020-09-19] MEDS: IPRATROPIUM 0.5 MG/2.5 ML NEBU INHALATION SCH ×2 (08:34→12:05)
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
[2020-09-19 12:18] VITALS: PULSE 87
[2020-09-19] MEDS ORDERED: POTASSIUM CHLORIDE ER 20 MEQ TAB.ER PO SCH (12:30)
[2020-09-19] MEDS ORDERED: TERBINAFINE 250 MG TAB PO SCH (12:30)
[2020-09-19] MEDS ORDERED: FUROSEMIDE 40 MG TAB PO SCH (12:30)
[2020-09-19] MEDS ORDERED: ATORVASTATIN 10 MG TAB PO SCH (12:30)
[2020-09-19] MEDS ORDERED: METOPROLOL SUCCINATE (ER) 50 MG TAB.ER.24H PO SCH (12:30)
[2020-09-19] MEDS ORDERED: VORTIOXETINE HYDROBROMIDE 10 MG TABLET PO SCH (12:30)
[2020-09-19] MEDS ORDERED: PANTOPRAZOLE 40 MG TABLET PO SCH (12:30)
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
== END 2020-09-19 13:42 | disposition home or self-care (01) ==
LOC: EC 13:08 → 6NMEDSUR 16:33
PROVIDERS: ADMIT Family Medicine; ATTEND Family Medicine
DX: J44.1 Chronic obstructive pulmonary disease with (acute) exacerbation (principal); J90 Pleural effusion, not elsewhere classified; G47.33 Obstructive sleep apnea (adult) (pediatric); J98.11 Atelectasis; E78.5 Hyperlipidemia, unspecified; I65.22 Occlusion and stenosis of left carotid artery; I11.9 Hypertensive heart disease without heart failure; F41.0 Panic disorder [episodic paroxysmal anxiety]; F43.10 Post-traumatic stress disorder, unspecified; G89.29 Other chronic pain; M54.9 Dorsalgia, unspecified; F17.200 Nicotine dependence, unspecified, uncomplicated; G47.00 Insomnia, unspecified; Z68.41 Body mass index [BMI] 40.0-44.9, adult; Z20.822 Contact with and (suspected) exposure to COVID-19; E66.01 Morbid (severe) obesity due to excess calories; Z79.899 Other long term (current) drug therapy; Z79.51 Long term (current) use of inhaled steroids; Z91.013 Allergy to seafood; Z97.8 Presence of other specified devices; Z91.81 History of falling; Z87.01 Personal history of pneumonia (recurrent); Z87.11 Personal history of peptic ulcer disease; Z96.612 Presence of left artificial shoulder joint; Z87.828 Personal history of other (healed) physical injury and trauma; Z86.73 Personal history of transient ischemic attack (TIA), and cerebral infarction without residual deficits; Z82.3 Family history of stroke; Z83.3 Family history of diabetes mellitus; Z82.49 Family history of ischemic heart disease and other diseases of the circulatory system; Z82.5 Family history of asthma and other chronic lower respiratory diseases; Z81.1 Family history of alcohol abuse and dependence
CPT/HCPCS: 99285; 36415; 94640 ×4; 93005; 83880; 80053; 82550; 83605; 83735; 84484; 85025; 85610; 85730; 87635; 71260; G0378 ×2; Q9967

== ENCOUNTER → 2020-09-18 | Outpatient (CLI) | payer MEDICARE ==
--- NOTE | 2020-09-18 12:53 | CT ---
EXAMINATION TYPE: CT chest w con DATE OF EXAM: 09/18/2020 COMPARISON: 07/09/2020 HISTORY: Pleural effusion CT DLP: 883 mGycm Automated exposure control for dose reduction was used. CONTRAST: CT scan of the chest is performed with IV Contrast, patient injected with 100 mL of Isovue 300. FINDINGS: LUNGS: Persistent but decreasing right-sided pleural effusion with previous AP dimension of 8.2 cm ve rsus today's measurement of 4.4 cm. Resolution of right lower lobe volume loss or infiltrate. The xavi gs are otherwise clear. MEDIASTINUM: There are no greater than 1 cm hilar or mediastinal lymph nodes. No pericardial effusi on is seen. Thoracic aorta is of normal caliber. The heart is not enlarged. UPPER ABDOMEN: No significant abnormality appreciated. OTHER: No additional significant abnormality is seen. IMPRESSION: Right-sided pleural effusion persists although is smaller in size.
== END | disposition home or self-care (01) ==
LOC: RADCTMAIN 12:01
PROVIDERS: ATTEND Family Medicine
DX: J90 Pleural effusion, not elsewhere classified (principal)
CPT/HCPCS: 71260; Q9967

== ENCOUNTER 2021-02-03 15:57 | Inpatient (IN) | payer MEDICARE ==
[2021-02-03] MEDS ORDERED: SODIUM CHLORIDE 0.9% 1,000 ML IV STA (19:18)
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
[2021-02-03 20:07] LABS: Basophils % (A) 1 %; Eosinophils # (A) 0.2 k/uL (0-0.7); Eosinophils % (A) 3 %; HCT 43.9 % (39.0-53.0); HGB 14.2 gm/dL (13.0-17.5); Lymphocytes # (A) 1.7 k/uL (1.0-4.8); Lymphocytes % (A) 24 %; MCH 30.7 pg (25.0-35.0); MCHC 32.4 g/dL (31.0-37.0); MCV 94.6 fL (80.0-100.0); Mean Platelet Volume 7.6; Monocytes # (A) 0.3 k/uL (0-1.0); Monocytes % (A) 5 %; Neutrophils # (A) 4.6 k/uL (1.3-7.7); Neutrophils % (A) 66 %; Platelet Count 211 k/uL (150-450); RBC 4.64 m/uL (4.30-5.90); WBC 7.1 k/uL (3.8-10.6)
[2021-02-03 20:17] LABS: ALT 18 U/L (4-49); AST 24 U/L (17-59); African American GFR (CKD) >90 (>60 ml/min/1.73 sqM); Albumin 4.2 g/dL (3.5-5.0); Alkaline Phosphatase 98 U/L (38-126); Blood Urea Nitrogen 17 mg/dL (9-20); Calcium 9.6 mg/dL (8.4-10.2); Carbon Dioxide 27 mmol/L (22-30); Chloride 103 mmol/L (98-107); Glucose 104 mg/dL (74-99); Non-African American GFR(CKD) >90 (>60 ml/min/1.73 sqM); Potassium 4.5 mmol/L (3.5-5.1); Total Bilirubin 0.6 mg/dL (0.2-1.3); Total Protein 6.9 g/dL (6.3-8.2)
[2021-02-03] MEDS ORDERED: SODIUM CHLORIDE 0.9% 1,000 ML IV SCH (20:45)
--- NOTE | 2021-02-03 20:58 | XR ---
EXAMINATION TYPE: XR tibia fibula RT DATE OF EXAM: 02/03/2021 COMPARISON: NONE HISTORY: Leg infection TECHNIQUE: 4 views FINDINGS: I see no fracture nor dislocation. Ankle mortise is anatomic. Knee joint appears intact. Mai int spaces are fairly normal. There Is lateral subcutaneous edema. IMPRESSION: Negative right tibia and fibula exam. No fracture. Mild subcutaneous edema noted over the lateral fibula.
[2021-02-03] MEDS ORDERED: NALOXONE 0.4 MG/ML 1 ML VIAL IV PRN (21:46)
[2021-02-03] MEDS ORDERED: VANCOMYCIN IV PER PHARMACY 1 EACH MISC MISCELLANE PRN (21:48)
[2021-02-03] MEDS ORDERED: AMPICILLIN-SULBACTAM 3 GM in SODIUM CHLORIDE 0.9% 100 ML IVPB STA (21:52)
[2021-02-03] MEDS ORDERED: MORPHINE SULFATE 4 MG/ML SYRINGE IVP STA (22:18)
[2021-02-03] MEDS ORDERED: VANCOMYCIN 2,000 MG in SODIUM CHLORIDE 0.9% 500 ML 500 ML IVPB ONE (22:30)
[2021-02-03] MEDS: AMPICILLIN-SULBACTAM 3 GM in SODIUM CHLORIDE 0.9% 100 ML IVPB SCH (22:34)
[2021-02-04] MEDS: AMPICILLIN-SULBACTAM 3 GM in SODIUM CHLORIDE 0.9% 100 ML IVPB SCH ×6 (00:26→23:25)
[2021-02-04] MEDS: ALPRAZolam 0.5 MG TAB PO PRN ×2 (02:20→23:25)
[2021-02-04] MEDS: MORPHINE SULFATE 4 MG/ML SYRINGE IVP PRN ×4 (05:03→23:25)
[2021-02-04] MEDS: VANCOMYCIN 2,000 MG in SODIUM CHLORIDE 0.9% 500 ML 500 ML IVPB SCH ×3 (05:39→21:33)
[2021-02-04 06:41] LABS: Basophils % (A) 1 %; Eosinophils # (A) 0.2 k/uL (0-0.7); Eosinophils % (A) 4 %; HCT 39.1 % (39.0-53.0); HGB 12.7 gm/dL (13.0-17.5); Lymphocytes # (A) 1.4 k/uL (1.0-4.8); Lymphocytes % (A) 23 %; MCH 31.3 pg (25.0-35.0); MCHC 32.6 g/dL (31.0-37.0); MCV 95.9 fL (80.0-100.0); Mean Platelet Volume 7.7; Monocytes # (A) 0.4 k/uL (0-1.0); Monocytes % (A) 6 %; Neutrophils # (A) 3.9 k/uL (1.3-7.7); Neutrophils % (A) 64 %; Platelet Count 187 k/uL (150-450); RBC 4.07 m/uL (4.30-5.90); RDW 13.8 % (11.5-15.5)
[2021-02-04] MEDS: ASPIRIN 81 MG PO SCH (07:28)
[2021-02-04] MEDS: METOPROLOL SUCCINATE (ER) 50 MG TAB.ER.24H PO SCH (07:29)
[2021-02-04] MEDS: PANTOPRAZOLE 40 MG TABLET PO SCH (07:29)
[2021-02-04] MEDS: CLOPIDOGREL 75 MG TAB PO SCH (07:29)
[2021-02-04] MEDS: TERBINAFINE 250 MG TAB PO SCH (07:29)
[2021-02-04] MEDS: ATORVASTATIN 10 MG TAB PO SCH (07:29)
[2021-02-04 07:45] LABS: African American GFR (CKD) >90 (>60 ml/min/1.73 sqM); Anion Gap 5 mmol/L; Blood Urea Nitrogen 15 mg/dL (9-20); Calcium 8.9 mg/dL (8.4-10.2); Carbon Dioxide 28 mmol/L (22-30); Chloride 105 mmol/L (98-107); Glucose 92 mg/dL (74-99); Non-African American GFR(CKD) >90 (>60 ml/min/1.73 sqM); Potassium 4.3 mmol/L (3.5-5.1); Sodium 138 mmol/L (137-145)
[2021-02-04] MEDS: SYMBICORT 80-4.5 MCG INHALER INHALATION SCH ×2 (07:48→19:42)
[2021-02-04] MEDS: IPRATROPIUM-ALBUTEROL 3 ML NEB INHALATION PRN ×3 (07:48→19:42)
[2021-02-04] MEDS ORDERED: POTASSIUM CHLORIDE ER 20 MEQ TAB.ER PO SCH (09:00)
[2021-02-04] MEDS ORDERED: FUROSEMIDE 80 MG TAB PO SCH (09:00)
[2021-02-04] MEDS ORDERED: DEXTROSE 5% IN WATER 1,000 ML IV SCH (09:30)
[2021-02-04] MEDS ORDERED: DESMOPRESSIN ACETATE 4 MCG/ML VIAL (MDV) IV ONE (10:00)
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
[2021-02-04 10:55] LABS: African American GFR (CKD) >90 (>60 ml/min/1.73 sqM); Anion Gap 7 mmol/L; Blood Urea Nitrogen 15 mg/dL (9-20); Calcium 8.6 mg/dL (8.4-10.2); Carbon Dioxide 26 mmol/L (22-30); Chloride 105 mmol/L (98-107); Glucose 120 mg/dL (74-99); Non-African American GFR(CKD) >90 (>60 ml/min/1.73 sqM); Potassium 4.5 mmol/L (3.5-5.1); Sodium 138 mmol/L (137-145)
[2021-02-04 12:38] LABS: Anion Gap 9 mmol/L; Sodium 139 mmol/L (137-145)
[2021-02-04] MEDS ORDERED: NON FORMULARY DRUG (Fluticasone/Umeclidin/Vilanter [Trelegy Ellipta 200-62.5-25] 1 EACH Bl INHALATION SCH (20:00)
[2021-02-04] MEDS: QUEtiapine 100 MG TAB PO SCH (22:43)
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
--- NOTE | 2021-02-05 00:24 | HP ---
HISTORY AND PHYSICAL A 55-year-old white male seen on renal consultation for hyponatremia, which is a medical mistake. They said it was down to about 108, but clearly it was repeated. It was up to 138. He is admitted for severe cellulitis of his right lower extremity with severe pain, swelling, redness to the entire lower leg. PAST MEDICAL HISTORY: CVA, TIA, GERD, GI bleed, dyslipidemia, hypertension, pneumonia, sleep apnea. REVIEW OF SYSTEMS: 14 point review of systems negative. SOCIAL HISTORY: Lives by himself. Drinks alcohol for many years. Smokes. Obesity. PAST MEDICAL HISTORY: Complete left carotid occlusion, hypertension, obesity, alcoholism, possible sleep apnea. FAMILY HISTORY: Father had a stroke. MEDICATIONS: Include at home, Xanax, Zocor, Toprol-XL, omeprazole, K-Dur, Lamisil, Trilogy, Benadryl, DuoNeb updrafts, Plavix 75 mg daily, Lasix 80 mg daily, Seroquel 100 mg q.h.s. Failed outpatient Bactrim double strength b.i.d. History of diastolic heart failure, COPD, nicotine addiction. ALLERGIES: SHELLFISH PHYSICAL EXAMINATION: Temp 98.4, pulse 80s to 90s, respiratory rate 16 to 18, blood pressure 130s over 80s. CARDIOVASCULAR S1, S2. LUNGS clear. ENDOCRINE: BMI is over 40. PSYCH: Fair mood and affect. GI is distended, obesity. EXTREMITIES: Show yellow exudative throughout the anterior tibia on the right leg with warmth and redness surrounding the middle third of the leg, mostly on the anterior part of the leg. ASSESSMENT: 1. Cellulitis of the right lower extremities. 2. Possible hyponatremia. 3. Diastolic heart failure. 4. Chronic obstructive pulmonary disease. 5. Nicotine addiction. Broad-spectrum antibiotics. Infectious Disease consult. Prognosis is guarded. Continue home medications. MMODL / IJN: [id number] /
[2021-02-05] MEDS ORDERED: VANCOMYCIN TROUGH DUE 1 EACH MISC MISCELLANE ONE (05:00)
[2021-02-05] MEDS: AMPICILLIN-SULBACTAM 3 GM in SODIUM CHLORIDE 0.9% 100 ML IVPB SCH ×2 (05:29→13:19)
[2021-02-05] MEDS: MORPHINE SULFATE 4 MG/ML SYRINGE IVP PRN ×4 (05:40→20:08)
[2021-02-05 06:16] LABS: African American GFR (CKD) >90 (>60 ml/min/1.73 sqM); Anion Gap 4 mmol/L; Blood Urea Nitrogen 10 mg/dL (9-20); Calcium 8.6 mg/dL (8.4-10.2); Carbon Dioxide 25 mmol/L (22-30); Chloride 107 mmol/L (98-107); Glucose 106 mg/dL (74-99); Magnesium 2.1 mg/dL (1.6-2.3); Non-African American GFR(CKD) >90 (>60 ml/min/1.73 sqM); Potassium 4.2 mmol/L (3.5-5.1); Sodium 136 mmol/L (137-145)
[2021-02-05] MEDS: VANCOMYCIN 2,000 MG in SODIUM CHLORIDE 0.9% 500 ML 500 ML IVPB SCH ×2 (06:32→17:53)
[2021-02-05] MEDS: SYMBICORT 80-4.5 MCG INHALER INHALATION SCH ×2 (07:30→21:05)
[2021-02-05] MEDS: ATORVASTATIN 10 MG TAB PO SCH (09:24)
[2021-02-05] MEDS: ASPIRIN 81 MG PO SCH (09:24)
[2021-02-05] MEDS: CLOPIDOGREL 75 MG TAB PO SCH (09:24)
[2021-02-05] MEDS: METOPROLOL SUCCINATE (ER) 50 MG TAB.ER.24H PO SCH (09:24)
[2021-02-05] MEDS: PANTOPRAZOLE 40 MG TABLET PO SCH (09:24)
[2021-02-05] MEDS: TERBINAFINE 250 MG TAB PO SCH (09:24)
--- NOTE | 2021-02-05 12:17 | P.PN ---
Subjective Patient is seen in follow-up for hyponatremia. Patient's sodium level of 118 on admission was a lab error and this was confirmed with the civil laboratory technician. Sodium level this morning is 136. Oral intake is good. No vomiting or diarrhea. Vital signs are stable. General: The patient appeared well nourished and normally developed. HEENT: Head exam is unremarkable. LUNGS: Breath sounds decreased. HEART: Rate and Rhythm are regular. ABDOMEN: Soft, obese. EXTREMITITES: No drainage noted. Objective - Vital Signs Vital signs: Vital Signs Temp 97.7 F 02/05/21 08:00 Pulse 75 02/05/21 08:00 Resp 16 02/05/21 08:00 BP 130/80 02/05/21 08:00 Pulse Ox 100 02/05/21 08:00 Intake & Output 02/04/21 02/05/21 02/05/21 18:59 06:59 18:59 Intake Total 236 Balance 236 Intake: Oral 236 Other: # Voids 4 - Labs CBC & Chem 7: 02/04/21 06:02 02/05/21 05:43 Labs: Abnormal Lab Results - Last 24 Hours (Table) 02/05/21 Range/Units 05:43 Sodium 136 L (137-145) mmol/L Glucose 106 H (74-99) mg/dL Microbiology - Last 24 Hours (Table) 02/04/21 05:00 Gram Stain - Preliminary Leg - Right Wound Culture - Preliminary 02/03/21 19:52 Blood Culture - Preliminary Blood No Growth after 24 hours 02/03/21 19:52 Blood Culture - Preliminary Blood No Growth after 24 hours 02/04/21 05:00 Anaerobic Culture - Preliminary Leg - Right Assessment and Plan Plan: Assessment: 1. Hyponatremia on admission which was a lab error. Sodium level is in the normal range. 2. Lower extremity wounds on antibiotics. Plan: I will sign off. Please call with any questions or concerns.
--- NOTE | 2021-02-05 16:56 | PN ---
PROGRESS NOTE DATE OF SERVICE: 02/05/2021 REASON FOR FOLLOWUP: Right lower extremity wound cellulitis, MRSA. INTERVAL HISTORY: The patient is afebrile. The patient is currently breathing comfortably. Overall pain and discomfort to the right heel slightly decreased. No chest pain, shortness of breath or cough. No abdominal pain or diarrhea. PHYSICAL EXAMINATION: Blood pressure 129/76, pulse of 87. Temperature is 97.7. He is 97% on room air. General description is a middle-aged male lying in bed in no distress. Respiratory system: Unlabored breathing, clear to auscultation anteriorly. Heart is S1, S2. Regular rate and rhythm. Abdomen soft, no tenderness. Right leg swelling and redness slightly decreased. LABS: Creatinine 0.67. Vanco level is 19.3. Local culture presumptive MRSA. DIAGNOSTIC IMPRESSION AND PLAN: Patient with right lower extremity wound and cellulitis, failing outpatient oral Keflex therapy. This patient currently covered with vancomycin to continue while waiting for the final sensitivities, , Larry wrap to the leg to keep the swelling down. MMODL / IJN: [id number] /
[2021-02-05] MEDS: QUEtiapine 100 MG TAB PO SCH (20:08)
[2021-02-06] MEDS: MORPHINE SULFATE 4 MG/ML SYRINGE IVP PRN ×6 (00:36→21:29)
--- NOTE | 2021-02-06 01:33 | PN ---
PROGRESS NOTE This 55-year-old white male remains on vancomycin and Lamisil for cellulitis of the right leg, possible abscess. Dr. Head is waiting for cultures prior to being discharged home. Continue with home medications, including pain control, Symbicort, DuoNeb. GERD. Follow up in the next 24 to 48 hours for possible discharge once cultures are back. MMODL / IJN: [id number] /
[2021-02-06] MEDS: VANCOMYCIN 2,000 MG in SODIUM CHLORIDE 0.9% 500 ML 500 ML IVPB SCH ×2 (05:57→17:02)
[2021-02-06 06:52] LABS: African American GFR (CKD) >90 (>60 ml/min/1.73 sqM); Non-African American GFR(CKD) >90 (>60 ml/min/1.73 sqM)
[2021-02-06] MEDS: SYMBICORT 80-4.5 MCG INHALER INHALATION SCH ×2 (08:09→19:47)
[2021-02-06] MEDS: ATORVASTATIN 10 MG TAB PO SCH (08:28)
[2021-02-06] MEDS: METOPROLOL SUCCINATE (ER) 50 MG TAB.ER.24H PO SCH (08:28)
[2021-02-06] MEDS: TERBINAFINE 250 MG TAB PO SCH (08:28)
[2021-02-06] MEDS: PANTOPRAZOLE 40 MG TABLET PO SCH (08:28)
[2021-02-06] MEDS: ASPIRIN 81 MG PO SCH (08:28)
[2021-02-06] MEDS: CLOPIDOGREL 75 MG TAB PO SCH (08:28)
--- NOTE | 2021-02-06 18:30 | PN ---
PROGRESS NOTE DATE OF SERVICE: 02/06/2021 REASON FOR FOLLOWUP: Right lower extremity wound and cellulitis. INTERVAL HISTORY: The patient is afebrile. The patient is breathing comfortably. The patient denies having any chest pain, shortness of breath or cough. No abdominal pain. Still complaining of pain to the right lower extremity. PHYSICAL EXAMINATION: Blood pressure is 163/88, pulse of 80, temperature is 97.3. He is 99% on room air. GENERAL DESCRIPTION: General description is a middle-aged male lying in bed in no distress. RESPIRATORY SYSTEM: Unlabored breathing. Clear to auscultation anteriorly. HEART: S1, S2. Regular rate and rhythm. ABDOMEN: Soft. No tenderness. Right leg is currently dressed. No obvious drainage on the dressing. LABS: Creatinine 0.68. Local culture with presumptive MRSA with sensitivities pending. DIAGNOSTIC IMPRESSION AND PLAN: Patient with right lower extremity wound and cellulitis with presumptive MRSA, sensitivities pending. Continue vancomycin. Waiting for the culture to determine discharge antibiotics. Continue with Larry wrap to the leg to keep the swelling down and monitor his clinical course closely. MMODL / IJN: [id number] /
[2021-02-06] MEDS: QUEtiapine 100 MG TAB PO SCH (21:29)
[2021-02-06] MEDS: ALPRAZolam 0.5 MG TAB PO PRN (22:32)
--- NOTE | 2021-02-07 00:53 | PN ---
PROGRESS NOTE 55-year-old white male with severely infected right leg from 3 to 4 inches above the ankle to just below the right knee with large exudative scabs and open wounds to his right anterior tibia. Cultures positive for MRSA. Remains on vancomycin at this time. Waiting for sensitivities. Oral antibiotics. His wound is improved over the last 3 days since he has been on IV antibiotics. Vital signs stable. Afebrile. Cardiovascular S1, S2. Lungs clear. GI soft, distended, obesity. Integument, extremities is as mentioned above. ASSESSMENT: 1. MRSA skin infection. 2. Chronic obstructive pulmonary disease. 3. Congestive heart failure. 4. Dyslipidemia. 5. Severe carotid stenosis. 6. Prior stroke. 7. Alcoholism. Continue current vancomycin. Await for sensitivity to oral antibiotics on discharge before he gets discharged. MMODL / IJN: [id number] /
[2021-02-07] MEDS: MORPHINE SULFATE 4 MG/ML SYRINGE IVP PRN ×5 (01:30→20:09)
[2021-02-07] MEDS: VANCOMYCIN 2,000 MG in SODIUM CHLORIDE 0.9% 500 ML 500 ML IVPB SCH ×2 (06:28→18:13)
[2021-02-07 06:47] LABS: ALT 17 U/L (4-49); AST 23 U/L (17-59); African American GFR (CKD) >90 (>60 ml/min/1.73 sqM); Albumin 3.4 g/dL (3.5-5.0); Albumin/Globulin Ratio 1.4; Alkaline Phosphatase 73 U/L (38-126); Anion Gap 6 mmol/L; Blood Urea Nitrogen 10 mg/dL (9-20); Calcium 8.8 mg/dL (8.4-10.2); Carbon Dioxide 25 mmol/L (22-30); Chloride 106 mmol/L (98-107); Globulin 2.4 g/dL; Glucose 96 mg/dL (74-99); Non-African American GFR(CKD) >90 (>60 ml/min/1.73 sqM); Sodium 137 mmol/L (137-145); Total Bilirubin 0.5 mg/dL (0.2-1.3); Total Protein 5.8 g/dL (6.3-8.2)
[2021-02-07] MEDS: ASPIRIN 81 MG PO SCH (07:20)
[2021-02-07] MEDS: PANTOPRAZOLE 40 MG TABLET PO SCH (07:20)
[2021-02-07] MEDS: CLOPIDOGREL 75 MG TAB PO SCH (07:20)
[2021-02-07] MEDS: ATORVASTATIN 10 MG TAB PO SCH (07:20)
[2021-02-07] MEDS: METOPROLOL SUCCINATE (ER) 50 MG TAB.ER.24H PO SCH (07:21)
[2021-02-07] MEDS: SYMBICORT 80-4.5 MCG INHALER INHALATION SCH ×2 (08:02→18:59)
[2021-02-07 09:13] LABS: Basophils # (A) 0.04 X 10*3/uL (0.00-0.10); Basophils % (A) 0.8 %; Eosinophils # (A) 0.22 X 10*3/uL (0.04-0.35); Eosinophils % (A) 4.3 %; HCT 38.3 % (39.6-50.0); HGB 12.1 g/dL (13.0-17.0); Lymphocytes # (A) 1.34 X 10*3/uL (0.90-5.00); MCH 30.4 pg (27.0-32.0); MCHC 31.6 g/dL (32.0-37.0); MCV 96.2 fL (80.0-97.0); Monocytes # (A) 0.37 X 10*3/uL (0.20-1.00); Monocytes % (A) 7.2 %; Neutrophils # (A) 3.14 X 10*3/uL (1.80-7.70); Neutrophils % (A) 60.9 %; Platelet Count 155 X 10*3/uL (140-440); RBC 3.98 X 10*6/uL (4.40-5.60); RDW 14.3 % (11.5-14.5); WBC 5.15 X 10*3/uL (4.50-10.00)
[2021-02-07] MEDS ORDERED: VANCOMYCIN TROUGH DUE 1 EACH MISC MISCELLANE ONE (17:00)
--- NOTE | 2021-02-07 19:04 | PN ---
PROGRESS NOTE DATE OF SERVICE: 02/07/2021. REASON FOR FOLLOW UP: Right lower extremity wound cellulitis MRSA. INTERVAL HISTORY: Patient is afebrile. The patient is currently breathing comfortably. No chest pain, shortness of breath or cough. No abdominal pain. Pain to the right leg decreased intensity. PHYSICAL EXAMINATION: Blood pressure 152/88, pulse of 71, temperature 98.6. He is 96% on room air. General description is a middle-aged male lying in bed in no distress. Respiratory system: Unlabored breathing, clear to auscultation anteriorly. Heart S1, S2. Regular rate and rhythm. Abdomen: Soft, no tenderness. Right leg is currently dressed. No obvious drainage on the dressing. LABS: Hemoglobin is 12.1, white count 5.15, creatinine 0.71. DIAGNOSTIC IMPRESSION AND PLAN: Patient with acute right lower extremity cellulitis. Culture positive for MRSA. Unfortunately, resistant both to doxy and Bactrim DS. Plan at this time to continue with IV vancomycin and we will see the patient in coverage for oral Zyvox for short course. Continue supportive care. MMODL / IJN: [id number] /
--- NOTE | 2021-02-07 20:06 | P.PN ---
Progress Note - Text Progress Note Date: 02/07/21 Presenting complaint: Wound right leg Interval history: I'm rounding for Dr. Manfred Carpio today Patient has some pain in the right affected leg. Appetite is good. Had a bowel movement. Denies any fever and chills. Has a dressing on the right leg. Review of systems: Was done for constitutional, cardiovascular, GI, pulmonary. relevant finding as above Active Medications Albuterol/Ipratropium (Ipratropium-Albuterol 3 Ml Neb) 3 ml INHALATION RT-QID PRN PRN Reason: Shortness Of Breath Last Admin: 02/04/21 19:42 Dose: 3 ml Documented by: Alprazolam (Alprazolam 0.5 Mg Tab) 0.5 mg PO HS PRN PRN Reason: Insomnia Last Admin: 02/06/21 22:32 Dose: 0.5 mg Documented by: Aspirin (Aspirin 81 Mg) 81 mg PO DAILY [facility] Last Admin: 02/07/21 07:20 Dose: 81 mg Documented by: Atorvastatin Calcium (Atorvastatin 10 Mg Tab) 10 mg PO DAILY [facility] Last Admin: 02/07/21 07:20 Dose: 10 mg Documented by: Budesonide/Formoterol Fumarate (Symbicort 80-4.5 Mcg Inhaler) 2 puff INHALATION RT-BID [facility] Last Admin: 02/07/21 18:59 Dose: 2 puff Documented by: Clopidogrel Bisulfate (Clopidogrel 75 Mg Tab) 75 mg PO DAILY [facility] Last Admin: 02/07/21 07:20 Dose: 75 mg Documented by: Vancomycin HCl 2,000 mg/ (Sodium Chloride) 500 mls @ 167 mls/hr IVPB Q12H FLORENCIA Last Admin: 02/07/21 18:13 Dose: 167 mls/hr Documented by: Metoprolol Succinate (Metoprolol Succinate (Er) 50 Mg Tab.Er.24h) 50 mg PO DAILY [facility] Last Admin: 02/07/21 07:21 Dose: 50 mg Documented by: Morphine Sulfate (Morphine Sulfate 4 Mg/Ml Syringe) 4 mg IVP Q4H PRN PRN Reason: Pain Last Admin: 02/07/21 15:10 Dose: 4 mg Documented by: Naloxone HCl (Naloxone 0.4 Mg/Ml 1 Ml Vial) 0.2 mg IV Q2M PRN PRN Reason: Opioid Reversal Pantoprazole Sodium (Pantoprazole 40 Mg Tablet) 40 mg PO DAILY [facility] Last Admin: 02/07/21 07:20 Dose: 40 mg Documented by: Quetiapine Fumarate (Quetiapine 100 Mg Tab) 100 mg PO HS [facility] Last Admin: 02/06/21 21:29 Dose: 100 mg Documented by: Terbinafine HCl (Terbinafine 250 Mg Tab) 250 mg PO DAILY [facility] Last Admin: 02/06/21 08:28 Dose: 250 mg Documented by: On examination: VITAL SIGNS: 98.6, 71, 18, 152.88, 96% room air GENERAL APPEARANCE: BMI 40.7, declining bed, not in distress. HEENT: Normal external appearance of nose and ear. Oral cavity normal EYES: Pupils equal. Conjunctiva normal. NECK: JVD not raised. Mass not palpable. RESPIRATORY: Respiratory effort normal. Lungs decreased breath sounds CARDIOVASCULAR: First and second sounds normal. Mild edema. ABDOMEN: Soft. Liver and spleen not palpable. No tenderness. No mass palpable. PSYCHIATRY: Alert and oriented x3. Mood and affect normal. EXTREMITY: Right lower extremity and a dressing INVESTIGATIONS, reviewed in the clinical context: White count 5.15 hemoglobin 12.1 and platelets 155 potassium 4 creatinine 0.71 Wound culture: MRSA, and aerobic gram-negative bacilli Assessment and plan: -Acute right lower extremity cellulitis and wound with cultures positive for MRSA. IV vancomycin and local treatment, with Larry wrap -GERD Protonix 40 mg daily -Hyperlipidemia Zocor 20 mg daily -Essential hypertension Toprol-XL 50 mg daily -Anxiety depression Seroquel 100 mg daily at bedtime -COPD in a previous smoker DuoNeb 3 times a day, Symbicort 2 puffs twice a day Care was discussed with the patient. Continue IV vancomycin and other medications. Questions answered.
[2021-02-07] MEDS: QUEtiapine 100 MG TAB PO SCH (20:09)
[2021-02-07] MEDS: IPRATROPIUM-ALBUTEROL 3 ML NEB INHALATION SCH (21:36)
[2021-02-07] MEDS: ALPRAZolam 0.5 MG TAB PO PRN (22:27)
[2021-02-08] MEDS: MORPHINE SULFATE 4 MG/ML SYRINGE IVP PRN ×6 (00:39→21:24)
[2021-02-08] MEDS: VANCOMYCIN 2,000 MG in SODIUM CHLORIDE 0.9% 500 ML 500 ML IVPB SCH (06:16)
[2021-02-08 06:43] LABS: African American GFR (CKD) >90 (>60 ml/min/1.73 sqM); Non-African American GFR(CKD) >90 (>60 ml/min/1.73 sqM)
[2021-02-08] MEDS: IPRATROPIUM-ALBUTEROL 3 ML NEB INHALATION SCH ×3 (07:14→19:29)
[2021-02-08] MEDS: SYMBICORT 80-4.5 MCG INHALER INHALATION SCH ×2 (07:14→19:29)
[2021-02-08] MEDS: ASPIRIN 81 MG PO SCH (08:23)
[2021-02-08] MEDS: METOPROLOL SUCCINATE (ER) 50 MG TAB.ER.24H PO SCH (08:23)
[2021-02-08] MEDS: ATORVASTATIN 10 MG TAB PO SCH (08:23)
[2021-02-08] MEDS: CLOPIDOGREL 75 MG TAB PO SCH (08:23)
[2021-02-08] MEDS: PANTOPRAZOLE 40 MG TABLET PO SCH (08:23)
[2021-02-08] MEDS: TERBINAFINE 250 MG TAB PO SCH (08:23)
--- NOTE | 2021-02-08 09:39 | CDI ---
Documentation Clarification Form Date: 02/08/2021 09:20:42 AM From: Yisel Elmore RN CCDS Admit Date: 02/03/2021 09:39:00 PM Patient Name: Danny Jackson Visit Number: [id number] Discharge Date: ATTENTION: The Clinical Documentation Specialists (CDI) and [facility] Coding Staff appreciate your assistance in clarifying documentation. Please respond to the clarification below the line at the bottom and electronically sign. The CDI & [facility] Coding staff will review the response and follow-up if needed. Please note: Queries are made part of the Legal Health Record. If you have any questions, please contact the author of this message via ITS. Dr. Manfred Carpio, Your patient has the documented diagnosis of Diastolic CHF H&P 02/04. Additional information regarding the Diastolic CHF is requested. History/Risk Factors: 55 year -old male presents to the ED with severe pain, redness and swelling to right leg. Medical History: CVA, TIA, HTN and history of diastolic heart failure. H&P 02/04. Clinical Indicators: VS/Pulse OX: 02/04 B/P 151/81; HR 97; Temp 99.6 F Oral; RR 20; SpO2 98% room air. Echocardiogram Results: 11/20/19 Mild concentric ventricular hypertrophy. EF 55- 60%. Trace to mild mitral regurgitation. Mild tricuspid regurgitation. Medicine Progress note 02/07 Essential Hypertension Toprol XL 50mg daily. Treatment: 02/04 Lasix 80mg po daily d/c 02/04 none administered. 02/04 Toprol XL 50mg po daily to current. In your professional opinion, can you please clarify the acuity of CHF if known? [ ] Chronic Diastolic Heart Failure (preserved EF) [ ] Diastolic Heart Failure Ruled Out. [ ] Other, please specify [ ] Unable to determine (Template Last Revised: June 2020) MTDD
[2021-02-08] MEDS: VANCOMYCIN 2,500 MG in SODIUM CHLORIDE 0.9% 500 ML 500 ML IVPB SCH (17:46)
[2021-02-08] MEDS: QUEtiapine 100 MG TAB PO SCH (21:25)
[2021-02-08] MEDS: ALPRAZolam 0.5 MG TAB PO PRN (22:45)
[2021-02-09] MEDS: MORPHINE SULFATE 4 MG/ML SYRINGE IVP PRN ×5 (01:56→20:21)
[2021-02-09] MEDS: VANCOMYCIN 2,500 MG in SODIUM CHLORIDE 0.9% 500 ML 500 ML IVPB SCH ×2 (06:25→19:31)
[2021-02-09] MEDS: PANTOPRAZOLE 40 MG TABLET PO SCH (07:59)
[2021-02-09] MEDS: TERBINAFINE 250 MG TAB PO SCH (07:59)
[2021-02-09] MEDS: CLOPIDOGREL 75 MG TAB PO SCH (07:59)
[2021-02-09] MEDS: ATORVASTATIN 10 MG TAB PO SCH (07:59)
[2021-02-09] MEDS: ASPIRIN 81 MG PO SCH (07:59)
[2021-02-09] MEDS: METOPROLOL SUCCINATE (ER) 50 MG TAB.ER.24H PO SCH (08:00)
[2021-02-09] MEDS: IPRATROPIUM-ALBUTEROL 3 ML NEB INHALATION SCH ×3 (08:30→19:46)
[2021-02-09] MEDS: SYMBICORT 80-4.5 MCG INHALER INHALATION SCH ×2 (08:30→19:45)
--- NOTE | 2021-02-09 11:35 | PN ---
PROGRESS NOTE DATE OF SERVICE: 02/08/2021 REASON FOR FOLLOWUP: Right lower extremity wound cellulitis and MRSA. INTERVAL HISTORY: The patient is afebrile. The patient is currently breathing comfortably. Denies having any chest pain, shortness of breath or cough. No abdominal pain or diarrhea. PHYSICAL EXAMINATION: Blood pressure 141/87, pulse of 73, temperature of 98.4. He is 97% on room air. General description is a middle-aged male lying in bed in no distress. RESPIRATORY SYSTEM: Unlabored breathing. Clear to auscultation anteriorly. HEART: S1, S2. Regular rate and rhythm. ABDOMEN: Soft. No tenderness. Right leg is currently dressed. No obvious drainage on the dressing. LABS: Hemoglobin is 12.1, white count , creatinine 0.77. DIAGNOSTIC IMPRESSION AND PLAN: 1. Patient with a right lower extremity wound and cellulitis. Culture positive for MRSA that is resistant to both Bactrim and tetracycline. Plan will be switching her over to Zyvox. 2. Local culture positive for bacteria causing cellulitis, possible colonizer need for antibiotic therapy for the same. MMODL / IJN: [id number] /
--- NOTE | 2021-02-09 11:35 | PN ---
PROGRESS NOTE ADDENDUM: Acute on chronic diastolic heart failure. MMODL / IJN: [id number] /
--- NOTE | 2021-02-09 11:35 | PN ---
PROGRESS NOTE This is a 55-year-old white male with right lower extremity wound cellulitis, MRSA. Resting comfortably. No fever or shortness of breath. He is requesting to stay in the hospital as long as he can before switching to oral antibiotics, as his leg is greatly improved. Family is afraid of catching MRSA at home. Blood pressure is 150s over 60s, pulse 70 to 75, temperature 96, O2 is 96 on room air. Cardiovascular: S1, S2. Lungs clear. GI soft. Hematology: Negative Homans. Integument: Right leg is currently dressed. No drainage on the wound. Hemoglobin is 12.1, white count 5.1, creatinine 0.71. ASSESSMENT: Acute right lower extremity cellulitis, positive for MRSA. both the doxycycline Bactrim Double Strength. Continue with IV vancomycin, possibly oral Zyvox for short course. Wait for infectious disease consultation. MMODL / IJN: [id number] /
--- NOTE | 2021-02-09 14:05 | PN ---
PROGRESS NOTE DATE OF SERVICE: 02/09/2021 REASON FOR FOLLOWUP: Right lower extremity wound and cellulitis, MRSA. INTERVAL HISTORY: The patient is afebrile. The patient is currently breathing comfortably. The patient did mention overall pain and discomfort to the right lower extremity has decreased. No chest pain, shortness of breath or cough. No abdominal pain or diarrhea. PHYSICAL EXAMINATION: His vital signs are stable. Temperature of 98. General description is a middle-aged male lying in bed in no distress. RESPIRATORY SYSTEM: Unlabored breathing. Clear to auscultation anteriorly. HEART: S1, S2. Regular rate and rhythm. ABDOMEN: Soft. No tenderness. Right leg swelling and redness has improved. DIAGNOSTIC IMPRESSION AND PLAN: Patient with right lower extremity cellulitis. Culture positive for MRSA resistant to Bactrim and doxycycline. Will try oral Zyvox if patient has coverage. Larry wrap to the leg to keep the swelling down and monitor his clinical course closely. Continue supportive care. MMODL / IJN: [id number] / MTDSadiq
[2021-02-09 14:19] VITALS: BMI 40.6
[2021-02-09] MEDS: QUEtiapine 100 MG TAB PO SCH (20:22)
[2021-02-09] MEDS: ALPRAZolam 0.5 MG TAB PO PRN (22:51)
[2021-02-10] MEDS: MORPHINE SULFATE 4 MG/ML SYRINGE IVP PRN ×3 (00:18→08:57)
[2021-02-10] MEDS ORDERED: VANCOMYCIN TROUGH DUE 1 EACH MISC MISCELLANE ONE (05:00)
--- NOTE | 2021-02-10 06:30 | PN ---
PROGRESS NOTE 55-year-old white male admitted to the hospital with MRSA cellulitis of the legs. Remains on vancomycin, switched to oral antibiotics. Possible discharge home tomorrow depending on Dr. Head's recommendation for home antibiotics. Cardiovascular S1-S2. Lungs clear. GI soft. Extremities show right lower extremity with excoriations and yellow exudate on the anterior tibia with redness on the anterior tibia about 3 x 4 inches. ASSESSMENT: MRSA cellulitis, chronic wound infection much improved. Try to switch to oral antibiotic that is not resistant to the MRSA and possibly be discharged home to follow up as an outpatient. MMODL / IJN: [id number] /
[2021-02-10 06:35] LABS: African American GFR (CKD) >90 (>60 ml/min/1.73 sqM); Non-African American GFR(CKD) >90 (>60 ml/min/1.73 sqM)
[2021-02-10] MEDS: VANCOMYCIN 2,500 MG in SODIUM CHLORIDE 0.9% 500 ML 500 ML IVPB SCH (07:17)
[2021-02-10 07:45] VITALS: BP 151/85; PULSE 87; RESP 18; TEMP 98.1
[2021-02-10] MEDS: SYMBICORT 80-4.5 MCG INHALER INHALATION SCH (08:05)
[2021-02-10] MEDS: IPRATROPIUM-ALBUTEROL 3 ML NEB INHALATION SCH (08:07)
[2021-02-10] MEDS: CLOPIDOGREL 75 MG TAB PO SCH (08:57)
[2021-02-10] MEDS: METOPROLOL SUCCINATE (ER) 50 MG TAB.ER.24H PO SCH (08:57)
[2021-02-10] MEDS: ASPIRIN 81 MG PO SCH (08:57)
[2021-02-10] MEDS: ATORVASTATIN 10 MG TAB PO SCH (08:57)
[2021-02-10] MEDS: PANTOPRAZOLE 40 MG TABLET PO SCH (08:57)
[2021-02-10] MEDS ORDERED: LINEZOLID 600 MG TAB PO SCH (09:00)
[2021-02-10] MEDS: TERBINAFINE 250 MG TAB PO SCH (09:03)
--- NOTE | 2021-02-10 11:19 | P.PN ---
Progress Note - Text Progress Note Date: 02/10/21 REASON FOR FOLLOWUP: Right lower extremity wound and cellulitis, MRSA. INTERVAL HISTORY: The patient remains to be afebrile. The patient is breathing comfortably. The patient pain and discomfort to the right lower extremity has decreased. No chest pain, shortness of breath or cough. No abdominal pain or diarrhea. PHYSICAL EXAMINATION: His vital signs are stable. Temperature of 98.5 F, blood pressure 151/85, pulse of 87, he is 96% room air General description is a middle-aged male lying in bed in no distress. RESPIRATORY SYSTEM: Unlabored breathing. Clear to auscultation anteriorly. HEART: S1, S2. Regular rate and rhythm. ABDOMEN: Soft. No tenderness. Right leg is currently wrapped no obvious drainage on the dressing LABS: Creatinine 0.82, Vanco level 17.8 DIAGNOSTIC IMPRESSION AND PLAN: Patient with right lower extremity cellulitis. Culture positive for MRSA resistant to Bactrim and doxycycline, plan is for oral Zyvox 600 mg p.o. twice a day for 7 days and a close outpatient follow-up
== END 2021-02-10 10:51 | disposition home health service (06) | DRG 602 ==
LOC: EC 15:57 → 4SSUR 21:39
PROVIDERS: ADMIT Family Medicine; ATTEND Family Medicine
DX: L03.115 Cellulitis of right lower limb (principal); I50.33 Acute on chronic diastolic (congestive) heart failure; E87.1 Hypo-osmolality and hyponatremia; Z68.41 Body mass index [BMI] 40.0-44.9, adult; Z16.24 Resistance to multiple antibiotics; F10.20 Alcohol dependence, uncomplicated; J44.9 Chronic obstructive pulmonary disease, unspecified; E66.9 Obesity, unspecified; Z20.822 Contact with and (suspected) exposure to COVID-19; I11.0 Hypertensive heart disease with heart failure; B95.62 Methicillin resistant Staphylococcus aureus infection as the cause of diseases classified elsewhere; E86.1 Hypovolemia; S80.821A Blister (nonthermal), right lower leg, initial encounter; I65.22 Occlusion and stenosis of left carotid artery; K21.9 Gastro-esophageal reflux disease without esophagitis; E78.5 Hyperlipidemia, unspecified; F41.0 Panic disorder [episodic paroxysmal anxiety]; F43.10 Post-traumatic stress disorder, unspecified; G47.30 Sleep apnea, unspecified; G47.00 Insomnia, unspecified; Z79.82 Long term (current) use of aspirin; Z79.02 Long term (current) use of antithrombotics/antiplatelets; Z79.51 Long term (current) use of inhaled steroids; Z79.899 Other long term (current) drug therapy; Z86.73 Personal history of transient ischemic attack (TIA), and cerebral infarction without residual deficits; Z87.820 Personal history of traumatic brain injury; Z90.49 Acquired absence of other specified parts of digestive tract; Z87.19 Personal history of other diseases of the digestive system; Z87.39 Personal history of other diseases of the musculoskeletal system and connective tissue; Z96.612 Presence of left artificial shoulder joint; Z96.89 Presence of other specified functional implants; Z87.891 Personal history of nicotine dependence; Z87.01 Personal history of pneumonia (recurrent); Z87.828 Personal history of other (healed) physical injury and trauma; Z98.890 Other specified postprocedural states; Z71.3 Dietary counseling and surveillance; Z91.013 Allergy to seafood; Z83.3 Family history of diabetes mellitus; Z82.5 Family history of asthma and other chronic lower respiratory diseases; Z81.2 Family history of tobacco abuse and dependence; Z82.3 Family history of stroke; F41.8 Other specified anxiety disorders
CPT/HCPCS: 36415; 80048; 80053; 80202; 82565; 83605; 83735; 83930; 83935; 84295; 84300; 84443; 85025; 86850; 86900; 86901; 87040; 87070; 87075; 87077; 87186; 87205; 87635; 94640; 96360; 99284

== ENCOUNTER → 2021-08-05 | Outpatient (CLI) | payer MEDICARE ==
--- NOTE | 2021-08-06 08:26 | XR ---
EXAMINATION TYPE: XR Hip Bilateral and AP pelvis, XR sacrum coccyx DATE OF EXAM: 08/05/2021 COMPARISON: CT dated 03/17/2016 HISTORY: Hip pain and SI pain TECHNIQUE: A single AP view of the pelvis is obtained. Two views of each hip are obtained. Additiona l 3 views of the sacrum. FINDINGS: [id number] degenerative changes of the right hip joint with osteophytosis and narrowing of the joint space. Milder degenerative changes of the left hip joint. No definite acute pelvic bone or hip fracture identified. Suspected degenerative changes of the superior aspects of the sacroiliac joints yet partially obscure d. The superior aspect of the sacrum is also obscured. Severe degenerative changes at L5-S1 level with grade 1 anterolisthesis of L5 over S1, appreciated pr eviously. No definite sacral fracture identified by this x-ray. IMPRESSION: Degenerative changes as described above. Chronic anterolisthesis of L5 over S1. Further bone scan or CT scan assessment can be considered if clinically required.
== END | disposition home or self-care (01) ==
LOC: RADXRMAIN 16:08
PROVIDERS: ATTEND Anesthesiology
DX: M16.0 Bilateral primary osteoarthritis of hip (principal); M43.17 Spondylolisthesis, lumbosacral region; M47.817 Spondylosis without myelopathy or radiculopathy, lumbosacral region
CPT/HCPCS: 72220; 73521

== ENCOUNTER 2021-08-12 09:21 | Day surgery (SDC) | payer MEDICARE ==
[2021-08-10 17:33] VITALS: BMI 35.5
[~2021-08-12 09:21] MED LIST: LACTATED RINGERS 1,000 ML IV SCH; LIDOCAINE 1% (10MG/ML) FOR IV START INTRADERMA PRN
[2021-08-12 10:00] VITALS: TEMP 97.4
[2021-08-12] MEDS ORDERED: PROPOFOL 10 MG/ML 20 ML VIAL IV ONE (10:55)
[2021-08-12] MEDS ORDERED: LIDOCAINE 1% INJ 10MG/ML (20 ML MDV) ONE (10:55)
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
--- NOTE | 2021-08-12 11:16 | P.OP ---
Date of Procedure: 08/12/21 Preoperative Diagnosis: GERD, dysphagia Postoperative Diagnosis: Antral gastritis Small sliding hiatal hernia Mild esophagitis Procedure(s) Performed: EGD Anesthesia: MAC Surgeon: Jorge Alberto Kwon Pathology: other (Antrum, esophagus) Condition: stable Disposition: PACU Description of Procedure: The patient's placed on the endoscopy table in the lateral position. She received IV sedation. The gastro-/oropharynx passed in the esophagus and stomach. Scope was then placed through the pylorus. First and second portion of the duodenum appeared normal. Scope was then brought back the antrum this was mildly inflamed. A biopsies performed. The scope was then retroflexed and the remainder the stomach appeared normal. There was a small sliding hiatal hernia. The GE junction was at 39 cm. The distal esophagus appeared inflamed. Biopsies performed. The proximal esophagus appeared normal. Scope withdrawn for patient.
[2021-08-12 11:38] VITALS: BP 151/81; PULSE 93; RESP 16
== END 2021-08-12 12:11 | disposition home or self-care (01) ==
LOC: ORWHC2ENDO 09:21
PROVIDERS: ATTEND Surgery
DX: K21.00 Gastro-esophageal reflux disease with esophagitis, without bleeding (principal); K29.50 Unspecified chronic gastritis without bleeding; K44.9 Diaphragmatic hernia without obstruction or gangrene
CPT/HCPCS: 43239; 88305; J2001; J2704

== ENCOUNTER → 2022-06-03 | Outpatient (CLI) | payer MEDICARE ==
--- NOTE | 2022-06-03 18:26 | CT ---
EXAMINATION TYPE: CT cervical spine wo con CT DLP: 714.3 mGycm, Automated exposure control for dose reduction was used. DATE OF EXAM: 06/03/2022 5:53 PM COMPARISON: CT neck 05/22/2013. CLINICAL INDICATION:Male, 56 years old with history of M54.12 RADICULOPATHY;, bilateral arm radiculop athy TECHNIQUE: Axial CT images from the skull base to the inferior aspect of T2 we obtained without intra venous contrast. Coronal and sagittal reformatted images were also reviewed. FINDINGS: Fracture: None. Osseous structures: Multilevel disc degeneration changes throughout the spine with disc osteophyte co mplexes and disc space narrowing. Vertebral alignment: There is straightening of the cervical alignment. Mild grade 1 anterolisthesis o f C2 on C3. Spinal canal/Neural Foramina: Disc osteophyte complexes at with spinal canal stenosis which is mild a t C3-C4, C4-C5 and moderate at C5-C6 and C6-C7. Facet joint uncovertebral joint arthropathy scattered throughout the cervical spine with varying degrees of neural foraminal stenosis. Findings are worse at C5-C6 bilaterally with severe neural foraminal stenosis and moderate at C4-C5 and C6-C7 Neck soft tissues: Prevertebral soft tissues are within normal limits. Other: The airway is patent. Mild centrilobular emphysema changes in lung apices. Atherosclerosis of the carotid bifurcations. IMPRESSION: 1. No evidence of cervical spine fracture. 2. Moderate spinal canal stenosis at C5-C6 and C6-C7. 3. Severe neural foraminal stenosis bilaterally at C5-C6. 4. Moderate neural foraminal stenosis bilaterally at C4-C5 and C6-C7.
== END | disposition home or self-care (01) ==
LOC: RADCTMAIN 17:34
PROVIDERS: ATTEND Family Medicine
DX: M48.02 Spinal stenosis, cervical region (principal); M99.71 Connective tissue and disc stenosis of intervertebral foramina of cervical region; M54.12 Radiculopathy, cervical region
CPT/HCPCS: 72125

== ENCOUNTER 2022-08-25 08:53 | Day surgery (SDC) | payer MEDICARE ==
[2022-08-25 11:26] VITALS: RESP 16
--- NOTE | 2022-08-25 12:10 | FL ---
EXAMINATION TYPE: FL myelogram cervical DATE OF EXAM: 08/25/2022 11:24 AM CLINICAL INDICATION:Male, 57 years old with history of M50.02 cervical myelopathy; COMPARISON: None ATTENDING: Danny Barragan D.O. After the procedure was explained and informed consent was obtained from the patient, the patient was prepped and draped in the usual sterile fashion. Patient was put in the prone position and the lower lumbar spine was imaged. 1% Lidocaine was used as local anesthetic using a 25 gauge needle. A 22 gau ge spinal needle was then advanced into the thecal sac using fluoroscopic guidance. Approximately 10 cc of contrast was injected into the thecal sac. The needle was then removed and a Band-Aid was appl ied. The patient tolerated procedure well. The patient was then sent to the CT unit for CT exam. Fluoroscopic time: 2 minutes 35 seconds Fluoroscopic images: 1 Radiographs taken: 18 FINDINGS: The lumbar vertebral bodies do have preserved heights and alignment. The contrast column w as seen at the level of approximately L2. The lumbar spine did demonstrate lower lumbar endplate scle rosis and osteophytosis. Patient was then sent to CT holding in the Trendelenburg position for approximately 25 minutes prior to scanning. IMPRESSIONS: Successful myelogram with CT myelogram to follow.
[2022-08-25 12:48] VITALS: TEMP 98.3
--- NOTE | 2022-08-25 12:56 | CT ---
EXAMINATION TYPE: CT cervical spine w con CT DLP: 715 mGycm, Automated exposure control for dose reduction was used. DATE OF EXAM: 08/25/2022 11:38 AM COMPARISON: 06/03/2022, CT Angio 08/08/2020. CLINICAL INDICATION:Male, 57 years old with history of M50.02 cervical myelopathy, neck pain TECHNIQUE: Axial CT images from the skull base to the inferior aspect of T2 we obtained with myelogra m contrast. Coronal and sagittal reformatted images were also reviewed. FINDINGS: Myelogram contrast is poorly localized in the patient was rescanned. Fracture: None. Osseous structures: Multilevel degenerative disc disease changes with endplate spurring and disc oste ophyte complex's. Vertebral alignment: There is reversal of the normal cervical alignment. Spinal canal/Neural Foramina: The second scanning of the patient there is multilevel moderate spinal canal narrowing extending from C3 to C5. Findings are worse with more severe narrowing at the level o f C6-C7 and C5-C6. The neural foramen have moderate distress neural foraminal stenosis at every level extending from C3-C4 to C7-T1 secondary to facet joint and uncovertebral joint arthropathy. Findings may be worse at C5-C6 on the left and C4-C5 and bilaterally. Neck soft tissues: Prevertebral soft tissues are within normal limits. Other: The airway is patent. Mild centrilobular emphysema changes. IMPRESSION: 1. Multilevel disc degeneration changes with severe spinal canal stenosis at C5-C6 and C6-C7 with mo derate spinal canal stenosis C3 to C5 spinal levels. 2. Multilevel uncovertebral facet joint arthropathy with findings worse at C5-C6 on the left and C4- C5 bilaterally. There is relatively moderate to severe neural foraminal stenosis throughout the cervi christine spine.
[2022-08-25 15:01] VITALS: BP 105/64; PULSE 82
== END 2022-08-25 15:07 | disposition home or self-care (01) ==
LOC: RADPROMAIN 08:53 → 6NMEDSUR 11:21 → RADPROMAIN 15:07
PROVIDERS: ATTEND Orthopaedic Surgery
DX: M50.322 Other cervical disc degeneration at C5-C6 level (principal); M48.02 Spinal stenosis, cervical region
CPT/HCPCS: 62302; 72126; J2001; Q9967

== ENCOUNTER → 2022-10-06 | Outpatient (CLI) | payer MEDICARE ==
--- NOTE | 2022-10-06 13:28 | XR ---
EXAMINATION TYPE: XR chest 2V DATE OF EXAM: 10/06/2022 1:21 PM COMPARISON: 06/25/2021 TECHNIQUE: XR chest 2V Frontal and lateral views of the chest. CLINICAL INDICATION:Male, 57 years old with history of PRE SURGICAL CHEST XRAY; FINDINGS: Lungs/Pleura: Interval reduction in right loculated pleural effusion. There is flattening of the diap hragm with increased lucency of the lungs. No evidence of pneumothorax, pleural effusion or focal con solidation. Pulmonary vascularity: Unremarkable. Heart/mediastinum: Cardiomediastinal silhouette is unremarkable. Musculoskeletal: Multiple right-sided remote appearing rib fractures. IMPRESSION: 1. No evidence of loculated pleural effusion along the right lateral chest wall as seen on prior on 06/25/2021. 2. Multiple right-sided remote appearing rib fractures. 3. COPD changes.
== END | disposition home or self-care (01) ==
LOC: RADXRMAIN 13:05
PROVIDERS: ATTEND Family Medicine
DX: Z01.818 Encounter for other preprocedural examination (principal); J44.9 Chronic obstructive pulmonary disease, unspecified
CPT/HCPCS: 71046

== ENCOUNTER → 2022-10-07 | Outpatient (CLI) | payer MEDICARE ==
[2022-10-07 16:05] LABS: Appearance,Urine Clear (Clear); Bilirubin,Urine Negative (Negative); Blood,Urine Negative (Negative); Color,Urine Yellow; Glucose,Urine (UA) Negative (Negative); Ketones,Urine Negative (Negative); Leukocyte Esterase,Urine Negative (Negative); Mucus,Urine Rare /hpf; Nitrite,Urine Negative (Negative); Protein,Urine 1+ (Negative); RBC,Urine 2 /hpf (0-5); Specific Gravity,Urine 1.037 (1.001-1.035); Squamous Epithelial Cell,Urine <1 /hpf (0-4); WBC,Urine 1 /hpf (0-5)
[2022-10-07 16:10] LABS: Partial Thromboplastin Time 25.7 sec (22.0-30.0)
[2022-10-08 01:46] LABS: Basophils # (A) 0.1 k/uL (0-0.2); Basophils % (A) 1 %; Eosinophils # (A) 0.2 k/uL (0-0.7); Eosinophils % (A) 3 %; HCT 43.9 % (39.0-53.0); HGB 14.2 gm/dL (13.0-17.5); Lymphocytes # (A) 1.5 k/uL (1.0-4.8); Lymphocytes % (A) 22 %; MCH 30.3 pg (25.0-35.0); MCHC 32.3 g/dL (31.0-37.0); MCV 94.1 fL (80.0-100.0); Mean Platelet Volume 9.1; Monocytes # (A) 0.4 k/uL (0-1.0); Monocytes % (A) 6 %; Neutrophils # (A) 4.4 k/uL (1.3-7.7); Neutrophils % (A) 67 %; Platelet Count 199 k/uL (150-450); RBC 4.67 m/uL (4.30-5.90); RDW 13.3 % (11.5-15.5); WBC 6.5 k/uL (3.8-10.6)
[2022-10-09 09:24] LABS: ALT 14 U/L; AST 12 U/L; African American GFR (CKD) >90; Albumin 4.3 d/dL; Albumin/Globulin Ratio 2.26 Ratio; Alkaline Phosphatase 68 U/L; BUN/Creat Ratio 15.25 Ratio; Blood Urea Nitrogen 12.2 mg/dL; Calcium 9.4 mg/dL; Carbon Dioxide 26.7 mmol/L; Chloride 106 mmol/L; Chol/HDL Ratio 3.09 Ratio; Globulin 1.9 d/dL; Glucose 85 mg/dL; LDL Cholesterol,Calculated 87.6 mg/dL; Non-African American GFR(CKD) >90; Potassium 4.9 mmol/L; Sodium 142 mmol/L; Total Bilirubin 0.8 mg/dL; Total Protein 6.2 d/dL; VLDL Calculation 19.34 mg/dL
[2022-10-10 10:42] LABS: Prothrombin Time 10.8 sec (9.0-12.0)
== END | disposition home or self-care (01) ==
LOC: LABPAT 14:09
PROVIDERS: ATTEND Orthopaedic Surgery
DX: Z01.812 Encounter for preprocedural laboratory examination (principal); Z51.81 Encounter for therapeutic drug level monitoring; Z22.322 Carrier or suspected carrier of Methicillin resistant Staphylococcus aureus; M48.02 Spinal stenosis, cervical region; Z79.899 Other long term (current) drug therapy; N39.0 Urinary tract infection, site not specified
CPT/HCPCS: 36415; 80053; 80061; 81001; 85025; 85610; 85730; 87070

== ENCOUNTER 2022-10-11 05:47 | Inpatient (IN) | payer MEDICARE ==
--- NOTE | 2022-10-10 06:48 | P.HPOR ---
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 10/06/22 History 10-325 mg] Allergies Allergy/AdvReac Type Severity Reaction Status Date / Time iodine Allergy Swelling Verified 10/06/22 14:15 shellfish derived [Shellfish] Allergy Anaphylaxis Verified 10/06/22 14:15 SEAFOOD Allergy Anaphylaxis Uncoded 10/06/22 14:15 Physical Examination Osteopathic Statement: *. No significant issues noted on an osteopathic structural exam other than those noted in the History and Physical/Consult.
[~2022-10-11 05:47] MED LIST changes: +ACETAMINOPHEN TAB 500 MG TAB PO PRN; +GABAPENTIN 300 MG CAP PO PRN; -LACTATED RINGERS 1,000 ML IV SCH; -LIDOCAINE 1% (10MG/ML) FOR IV START INTRADERMA PRN; +ONDANSETRON 4 MG/2 ML VIAL IVP PRN; +TRANEXAMIC 1,000 MG/100ML-NACL 1,000 MG in SALINE 1 100ML.BAG IVPB PRN
[2022-10-11] MEDS ORDERED: ONDANSETRON 4 MG/2 ML VIAL IVP ONE (05:49)
[2022-10-11] MEDS ORDERED: DEXAMETHASONE SOD PHOSPHATE 4 MG/ML 1 ML VIAL IV ONE (05:49)
[2022-10-11 06:50] LABS: Glucose,Whole Blood 87 mg/dL (70-110)
[2022-10-11] MEDS ORDERED: LACTATED RINGERS 1,000 ML IV ONE ×3 (06:56→13:21)
[2022-10-11] MEDS ORDERED: HYDROmorphone (PF) 1 MG/ML ONE (07:52)
[2022-10-11] MEDS ORDERED: fentaNYL (PF) 50 MCG/ML 2 ML AMP ONE (07:52)
[2022-10-11] MEDS ORDERED: SUCCINYLCHOLINE CHLORIDE 200 MG/10 ML VIAL IV ONE (07:52)
[2022-10-11] MEDS ORDERED: MIDAZOLAM 2 MG/2 ML VIAL ONE (07:52)
[2022-10-11] MEDS ORDERED: FUROSEMIDE 10 MG/ML 2 ML VIAL ONE (07:52)
[2022-10-11] MEDS ORDERED: KETAMINE 10 MG/ML 20 ML VIAL ONE (07:52)
[2022-10-11] MEDS ORDERED: LIDOCAINE 2% INJ 20 MG/ML (2 ML VIAL) ONE (07:52)
[2022-10-11] MEDS ORDERED: TRANEXAMIC 1,000 MG/100ML-NACL PREMIX BAG ONE (07:52)
[2022-10-11] MEDS ORDERED: PROPOFOL 10 MG/ML 20 ML VIAL IV ONE (07:52)
[2022-10-11] MEDS ORDERED: THROMBIN (BOVINE) 5,000 UNIT VIAL TOPICAL ONE (09:26)
[2022-10-11] MEDS ORDERED: GELATIN SPONGE,ABSORB (LARGE) 1 EACH SPONGE TOPICAL ONE (09:26)
--- NOTE | 2022-10-11 10:46 | XR ---
Fluoroscopy History: C3-C7 Fusion anterior Cervical fusion
[2022-10-11] MEDS: HYDROmorphone 0.5 MG/0.5 ML SYRINGE IVP PRN ×4 (11:10→11:52)
[2022-10-11] MEDS ORDERED: HYDROmorphone 0.5 MG/0.5 ML SYRINGE IVP PRN (11:18)
[2022-10-11] MEDS ORDERED: ONDANSETRON 4 MG/2 ML VIAL IVP PRN (11:18)
[2022-10-11] MEDS ORDERED: NA PHOS,M-B/NA PHOS,DI-BA 133 ML ENEMA RECTAL PRN (11:18)
[2022-10-11] MEDS ORDERED: bisacodyL 10 MG SUPP RECTAL PRN (11:18)
--- NOTE | 2022-10-11 12:25 | FL ---
EXAMINATION TYPE: FL guidance operating room DATE OF EXAM: 10/11/2022 FLUOROSCOPY Fluoroscopy time of 29 seconds was used during C3-C7 cervical fusion. 4 image/s document/s the nirmal tam. DOSE AREA PRODUCT (DAP) UGY*M,MGY*CM: 0.4673
[2022-10-11] MEDS: HYDROmorphone 1 MG/ML 1 ML SYRINGE IVP PRN ×4 (14:19→23:32)
[2022-10-11] MEDS: 0.9% NACL WITH KCL 20 MEQ/L 1,000 ML IV SCH (14:19)
[2022-10-11] MEDS: ACETAMINOPHEN TAB 500 MG TAB PO SCH ×3 (14:46→23:31)
[2022-10-11] MEDS ORDERED: NON FORMULARY DRUG (Dilaudid Pain Pump 1 DOSE) INTRATHECA SCH (15:00)
[2022-10-11] MEDS: GABAPENTIN 300 MG CAP PO SCH ×2 (15:36→20:39)
--- NOTE | 2022-10-11 15:54 | CT ---
EXAMINATION TYPE: CT cervical spine wo con DATE OF EXAM: 10/11/2022 COMPARISON: 08/25/2022 HISTORY: post-op CT DLP: 563.[address] of the cervical spine was performed with bone and soft tissue window settings submitted . Coronal and sagittal reconstruction is obtained. C2-3: Within normal limits C3-4: Postsurgical changes of anterior cervical discectomy and fusion. Intervertebral spacer and stab ilizing prosthesis noted be in place. Small amount of postsurgical air is seen. Postoperative alignme nt is anatomic. Spinal canal appears capacious. C4-5:Postsurgical changes of anterior cervical discectomy and fusion. Intervertebral spacer and stabi lizing prosthesis noted be in place. Small amount of postsurgical air is seen. Postoperative alignmen t is anatomic. Spinal canal appears capacious. C5-6:Postsurgical changes of anterior cervical discectomy and fusion. Intervertebral spacer and stabi lizing prosthesis noted be in place. Small amount of postsurgical air is seen. Postoperative alignmen t is anatomic. Spinal canal appears capacious. C6-7: Moderate degenerative disc space narrowing. No disc herniation or central stenosis. Ventral and dorsal spondylosis. Mild left foraminal encroachment. C7-T1: Within normal limits. IMPRESSION: 1. Postsurgical changes of ACDF extending from C3 through C6. Normal postoperative alignment. Postope rative soft tissue changes noted. Right-sided surgical drain is noted to be in place.
[2022-10-11] MEDS: ATORVASTATIN 10 MG TAB PO SCH (20:39)
[2022-10-11] MEDS: TEMAZEPAM 15 MG CAP PO SCH (20:39)
[2022-10-11] MEDS: QUEtiapine 100 MG TAB PO SCH (23:31)
[2022-10-11] MEDS: ALPRAZolam 0.5 MG TAB PO PRN (23:31)
[2022-10-12] MEDS: HYDROmorphone 1 MG/ML 1 ML SYRINGE IVP PRN ×6 (02:52→20:13)
[2022-10-12] MEDS: ACETAMINOPHEN TAB 500 MG TAB PO SCH ×3 (05:50→18:40)
[2022-10-12] MEDS: LACTATED RINGERS 1,000 ML IV SCH (07:48)
[2022-10-12] MEDS: FUROSEMIDE 80 MG TAB PO SCH (08:53)
[2022-10-12] MEDS: GABAPENTIN 300 MG CAP PO SCH ×3 (08:53→22:43)
[2022-10-12] MEDS: FERROUS SULFATE 325 MG TAB PO SCH (08:53)
[2022-10-12] MEDS: SENNOSIDES-DOCUSATE SODIUM 1 EACH TAB PO SCH (08:53)
[2022-10-12] MEDS: POTASSIUM CHLORIDE ER 20 MEQ TAB.ER PO SCH (08:53)
[2022-10-12] MEDS: METOPROLOL SUCCINATE (ER) 50 MG TAB.ER.24H PO SCH (08:53)
[2022-10-12] MEDS: HEPARIN SODIUM,PORCINE/PF 5,000 UNIT/0.5 ML SYRINGE SQ SCH ×2 (08:53→20:14)
[2022-10-12] MEDS: PANTOPRAZOLE 40 MG/10 ML VIAL IVP SCH (08:53)
[2022-10-12] MEDS: 0.9% NACL WITH KCL 20 MEQ/L 1,000 ML IV SCH (08:54)
[2022-10-12] MEDS: MAGNESIUM HYDROXIDE 2,400 MG/10 ML CUP PO SCH (08:55)
[2022-10-12 09:28] LABS: African American GFR (CKD) >90 (>60 ml/min/1.73 sqM); Anion Gap 7 mmol/L; Blood Urea Nitrogen 7 mg/dL (9-20); Carbon Dioxide 26 mmol/L (22-30); Chloride 106 mmol/L (98-107); Glucose 180 mg/dL (74-99); Non-African American GFR(CKD) >90 (>60 ml/min/1.73 sqM); Potassium 3.6 mmol/L (3.5-5.1); Sodium 139 mmol/L (137-145)
[2022-10-12 09:54] LABS: Basophils % (A) 0 %; Eosinophils # (A) 0.2 k/uL (0-0.7); Eosinophils % (A) 3 %; HCT 40.6 % (39.0-53.0); HGB 13.1 gm/dL (13.0-17.5); Lymphocytes # (A) 1.8 k/uL (1.0-4.8); Lymphocytes % (A) 24 %; MCH 30.1 pg (25.0-35.0); MCHC 32.3 g/dL (31.0-37.0); MCV 93.3 fL (80.0-100.0); Monocytes # (A) 0.3 k/uL (0-1.0); Monocytes % (A) 4 %; Neutrophils # (A) 5.2 k/uL (1.3-7.7); Neutrophils % (A) 69 %; Platelet Count 149 k/uL (150-450); RBC 4.35 m/uL (4.30-5.90); RDW 13.3 % (11.5-15.5); WBC 7.6 k/uL (3.8-10.6)
--- NOTE | 2022-10-12 11:43 | P.PN ---
Subjective Progress Note Date: 10/12/22 Principal diagnosis: Status post ACDF C3-C6 Patient was examined today at bedside, he is resting his hospital bed. Patient states he is having severe pain throughout the neck region into his bilateral upper extremities. Patient is requesting an increase in his IV pain medication at this time. He has been taking both oral medications and IV pain medications around the clock. Patient also has an implantable pain pump that is constantly running. Patient said he was unable to sleep last night due to the pain. Urinary catheter remains in place at this time. Patient states he was able to ambulate around the room with the assistance of physical therapy. He is continuing to utilize tired collar as instructed. He denies any difficulty with swallowing, chest pain, shortness of breath, nausea or vomiting. Objective - Vital Signs Vital signs: Vital Signs Temp 98.0 F 10/12/22 07:22 Pulse 82 10/12/22 07:22 Resp 16 10/12/22 07:22 BP 143/99 10/12/22 07:22 Pulse Ox 99 10/12/22 07:22 FiO2 Intake & Output 10/11/22 10/12/22 10/12/22 18:59 06:59 18:59 Intake Total 2800 780 Output Total 1890 600 Balance 910 180 Weight 95.5 kg Intake: IV 2800 Oral 780 Output: Drainage 60 Anterior Neck 60 Urine 1780 550 Estimated Blood Loss 50 Other 50 Other: Voiding Method Indwelling Catheter Indwelling Catheter Indwelling Catheter - Exam Gen: AOx3, NAD VSS stable at this time Integument: Bandage over the anterior neck incision is in good position and condition, no ac tive drainage. Drain was noted to have mild serosanguineous drainage Palpation: Patient demonstrates tenderness with palpation to the posterior cervical region along with left and right sided anterior neck ROM: Full range of motion in all major muscle groups of bilateral upper and lower extremities, no focal deficits are appreciated. Contraction noted in the left hand including the second through fourth and fifth digits, this was present prior to his surgery. Sensory Exam: Senory exam to light touch is intact C5-T1, light touch diminished in the C5-C7 region on the left side, Senosry exam to light touch is intact L2-S1 Motor: 5/5 strength appreciated in the bilateral lower extremities with hip flexion, knee extension, knee flexion, plantar flexion, dorsiflexion, EHL, FHL 4-/5 strength appreciated in the right upper extremity with shoulder elevation, elbow extension, elbow flexion, wrist extension, wrist flexion, ferryboat ticket taker 3-/5 strength appreciated in the left upper extremity with shoulder elevation, elbow extension, elbow flexion, wrist extension, wrist flexion, ferryboat ticket taker Reflexes: 2/4 in all UE and LE Positive Leila's bilaterally Negative Babinski bilaterally Negative clonus bilaterally - Labs CBC & Chem 7: 10/12/22 08:17 10/12/22 08:17 Labs: Abnormal Lab Results - Last 24 Hours (Table) 10/12/22 10/12/22 Range/Units 08:17 08:17 Plt Count 149 L (150-450) k/uL BUN 7 L (9-20) mg/dL Glucose 180 H (74-99) mg/dL Calcium 8.0 L (8.4-10.2) mg/dL Assessment and Plan Assessment: Postoperative day #1 status post ACDF C3-C6 Bilateral upper extremity radiculopathy Bilateral upper extremity weakness Myelopathy left upper extremity Plan: Pain control, did a long conversation today with the patient regarding use of pain medications. Patient has been on narcotics for a very long time which will make pain control more difficult for him. He was notified to the second stage of this procedure will likely cause a worsening in his pain we will do our best to manage that. We'll adjust his Dilaudid dose at this time. Continue with oral medications. Continue with stool softeners [id number] to help prevent constipation DVT prophylaxis, patient normally takes Plavix, this is been on hold. He was started on heparin after surgery, this will be held after midnight tonight for his second stage of the procedure. We will likely begin heparin for 1-2 days postoperatively and then begin his oral Plavix Maintain hard c-collar at this time. We'll continue to monitor drain output and bandage. We'll likely remove the drain on the anterior neck on 10/13/2022 prior to surgery Weight-bear as tolerated, recommend use of a walker. Hard collar must be on at all times. Avoid bending, lifting, twisting at this time Encourage incentive spirometer Continue with use of urinary catheter, we'll hopefully remove on 10/14 or 10/15/2022 for urinary trial Other medical dir and recommendations appreciated Nothing by mouth after midnight tonight for surgery for 10/13/2022 Further recommendations to follow Time with Patient: Less than 30
--- NOTE | 2022-10-12 12:56 | P.OP ---
Date of Procedure: 10/11/22 Preoperative Diagnosis: 1. Cervical spondylotic myelopathy 2. UE weakness with radiculopathy and paresthesia 3. Neck pain Postoperative Diagnosis: 1. Cervical spondylotic myelopathy 2. UE weakness with radiculopathy and paresthesia 3. Neck pain Procedure(s) Performed: 1. C3-6 anterior cervical discecomty and fusion (68167, [id number]) 2. Insertion of biomechanical device x3 ([id number]) Use of IONM Use of IO microscope Implants: [place] C cages x3 MagnatOs, autorgraft Anesthesia: GETA Surgeon: [facility] [employer] Aide #1: Ranjan Castro Estimated Blood Loss (ml): 50 IV fluids (ml): 450 Urine output (ml): 200 Pathology: none sent Condition: stable Disposition: PACU Indications for Procedure: Mr. Jackson is presenting for evaluation of neck pain. It was my pleasure to have seen and examined Mr. Jackson. In our visit today we have had a chance to go over subjective complaints, physical examination findings and treatments including the natural course history without intervention and various interventional options. The patients imaging demonstrates: [facility]: IMPRESSION: 1. Multilevel disc degeneration changes with severe spinal canal stenosis at C5-C6 and C6-C7 with moderate spinal canal stenosis C3 to C5 spinal levels. 2. Multilevel uncovertebral facet joint arthropathy with findings worse at C5- C6 on the left and C4-C5 bilaterally. There is relatively moderate to severe neural foraminal stenosis throughout the cervical spine. On physical exam, Mr. Jackson demonstrates: an aching, burning, and sharp cervical pain that it radiates into the bilateral upper extremities, associated with numbness and tingling; severe in the left greater than the right. Patient reports he is unable to move his left arm without physically moving it with his right. Patient has had increase in burning sensation into his left upper extremity that radiates into his left axilla. Overall the patient has seen a progressive increase in symptoms since their onset. I have explained to the patient that as their condition progresses it will cause further neurological deficits and eventual paralysis. Based on the patients imaging, physical exam, and the rapid progression and disabling nature of their symptoms, at this time I recommend surgery in the form of a: Stage I: C3-7 ACDF / Stage II: C2-T2 decompression and fusion. I discussed the risk and benefits of this procedure at length with Mr. Jackson. The patient agreed to considered pursuing the procedure above mentioned. Prior to surgery, she should follow up with her PCP (Cardio, ID, IM etc) for clearance. Questions were invited and answered, and the patient wishes to proceed as outlined below. Currently, I am recommendin.Stage I: C3-7 ACDF / Stage II: C2-T2 decompression and fusion Description of Procedure: Stage I: C3-6 ACDF (stand alone) The patient was seen and examined in the preoperative area. All preoperative protocols were followed. Informed consent was obtained risks and benefits of the procedure were discussed at length. Risks including bleeding infection damage to the surrounding tissue and risk of re-operation were discussed with the patient. Risk of anesthesia up to and including was a discussed with the patient. These are outlined in the risk review. They were willing to accept these risks and all the risks of surgery. The patient was given a weight-based dose of antibiotics in the form of 2 g Ancef. The patient was seen and evaluated by the anesthesia team who deemed them fit for surgery. The site was marked, the patient was willing to proceed with the procedure. The patient was transferred to the operative suite by the Department of anesthesia. They were then drifted off to sleep by the department anesthesia and GETA was performed. The patient tolerated this well. Maier catheter was placed by nursing staff, a-traumatically. Once confirmation of lines and ventilation the patient was transferred to a Supine Andrea table very carefully. All bony prominences including wrists, elbows, axilla, chest, hips, and thighs, and feet were padded very well. Special attention was paid to the genitalia, and these were padded accordingly. SCDs were placed on bilateral lower extremities and were connected. Arms were well padded and placed at their side thumbs up. Once in position, again we confirmed good ventilation capabilities and that lines were running appropriately. The patients Cervical spine was then exposed. 1010s were placed outlining the incision site. Standard alcohol was used to clean the incision site and allowed to dry. C-arm was used to bio-karuna the patient and confirm level for incision which was marked with a skin marker. Operative briefing was performed with all teams and everyone in agreement to proceed. The patient was then prepped and draped in a normal sterile fashion. Timeout was then performed, and all parties agreed with the procedure to be performed. Transverse skin incision was then made on the right side of the patients neck 3 cm and dissection taken down to the platysma which was split transversely. Sub platysma flap was made, and interval identified between SCM and medial structures. Omohyoid was visualized and protected. Blunt dissection taken down to the anterior cervical facia which was identified. Blunt probe was then placed and lateral image taken which confirmed levels for operation. These levels were then marked with a bovi. Subperiosteal dissection of the longissimus muscles were then done over these levels identifying uncovertebral joints bilaterally. Retractor was then placed deep to these muscles and held in place with a bed arm. Starting at C3-4, Stanton pins were placed into C3 and C4 and gentle distraction taken out over the levels. Michael rongure used to remove disc material. Operating microscope brought in for visualization. Complete discectomy performed at this level with curette, rongure and pituitary. High speed amrita used to remove osteophytes anteriorly and posteriorly until PLL was identified. 6-0 up curette then used to identify the canal and resect the PLL. 2-0 and 3-0 Kerrison used then to remove PLL and disc herniation and performed b/l fo raminotomies. Once good decompression accomplished, meticulous hemostasis was performed. Sizers were then placed under lateral fluoroscopy until the desired height and lordosis. Cage was then selected, packed with autograft and allograft and placed under lateral imaging and screws placed through the cage to secure it. Once in good position it was tested and stable. Motors run before and after cage placement were stable. The wound was irrigated, and autograft placed lateral to the cage anteriorly for fusion. Stanton pin was then removed from C3 and placed into C5. Gentle distraction ta irvin out over C4-5 now. Complete discectomy done at C4-5 as described including decompression, b/l foraminotomies and PLL resection. Burring of endplates was minimal, osteophytes removed as described. Spacers were then sized and placed under lateral imaging. Cage selected, packed with graft and placed under lateral images. Once in position, meticulous hemostasis performed, and motors remained stable before and after cage placement.Screws placed through the cage to secure it. AP image confirmed good placement of cages. Wound was irrigated. Stanton pin was then removed from C5 and placed into C6. Gentle distraction taken out over C5-6 now. Complete discectomy done at C5-6 as described including decompression, b/l foraminotomies and PLL resection. Burring of endplates was minimal, osteophytes removed as described. Spacers were then sized and placed under lateral imaging. Cage selected, packed with graft and placed under lateral images. Once in position, meticulous hemostasis performed, and motors remained stable before and after cage placement.Screws were then placed through the cage for stabilization. AP image confirmed good placement of cages. Wound was irrigated. Stanton pin was removed from vertebral bodies and bone wax placed in all their voids. . After each cage placement, screws were placed through the cage with good purchase using lateral imaging. The screws were placed inferiorly and superiorly and locked. All locking mechanisms set, and all screws had good purchase. Final AP and lateral images taken confirmed good placement of hardware and good reduction and lutheran of height. The wound was then irrigated copiously with NSS. Surgicel placed deep in the wound. A deep drain placed out a separate incision and sewed into place. Layered closure then performed with 3-0 Vicryl in the platysma and sub-Q tissue. 4-0 Strata fix in the subcuticular tissue. The wound was then cleaned, and dried and skin glue placed. Once glue dried an Op ifoam was placed. The patient was then transferred back to their hospital bed a-traumatically. The drain continued to hold suction. They were placed in a soft collar. They were then awakened by the department of anesthesia having tolerated the procedure well without complications.
[2022-10-12] MEDS: ATORVASTATIN 10 MG TAB PO SCH (20:13)
[2022-10-12] MEDS: TEMAZEPAM 15 MG CAP PO SCH (22:43)
[2022-10-12] MEDS: QUEtiapine 100 MG TAB PO SCH (22:43)
[2022-10-13] MEDS: ACETAMINOPHEN TAB 500 MG TAB PO SCH ×5 (00:14→23:49)
[2022-10-13] MEDS: HYDROmorphone 1 MG/ML 1 ML SYRINGE IVP PRN ×3 (00:15→08:04)
[2022-10-13] MEDS: 0.9% NACL WITH KCL 20 MEQ/L 1,000 ML IV SCH ×2 (06:53→23:52)
[2022-10-13] MEDS: LACTATED RINGERS 1,000 ML IV SCH ×2 (06:55→10:57)
[2022-10-13] MEDS: SENNOSIDES-DOCUSATE SODIUM 1 EACH TAB PO SCH (07:41)
[2022-10-13] MEDS: FERROUS SULFATE 325 MG TAB PO SCH (07:42)
[2022-10-13] MEDS: METOPROLOL SUCCINATE (ER) 50 MG TAB.ER.24H PO SCH (07:42)
[2022-10-13] MEDS: GABAPENTIN 300 MG CAP PO SCH ×3 (07:42→21:35)
[2022-10-13] MEDS: FUROSEMIDE 80 MG TAB PO SCH (07:42)
--- NOTE | 2022-10-13 07:44 | CONS ---
CONSULTATION HISTORY OF PRESENT ILLNESS: Status post part 1 of his cervical surgery with Dr. Victoria. He is certain worse pain he has ever had in his life he says. His home medications have been reordered. He is waiting for tomorrow, or Monday, to do the second part of the surgery. He feels like he is breathing fairly well. Gabapentin has helped his pain quite a bit he says in his back since surgery. We gave him IV pain medicine. MEDICATIONS: Reviewed. REVIEW OF SYSTEMS: Fourteen-point review of systems is otherwise negative. PHYSICAL EXAMINATION: VITAL SIGNS: Reviewed. LUNGS: Decreased breath sounds x4. NECK: He has bandage on his neck. His tube is coming out of his neck out for drainage with bright red blood in it. CARDIOVASCULAR: S1, S2. HEMATOLOGIC: Negative Homans. NEUROLOGIC: Cranial nerves are intact. He can move all 4 extremities. PSYCHIATRIC: He appears to be stable. ASSESSMENT: He is status post cervical spinal stenosis surgery part 1, bilateral upper extremities. He has history of carotid stenosis with prior stroke. Most likely, he has sleep apnea, chronic obstructive pulmonary disease, and nicotine addiction. Prognosis is extremely guarded. Continue current pain control, breathing treatments, smoking cessation, and anxiety medicine p.r.n. Please see further orders. MMODL / IJN: [id number] /
[2022-10-13] MEDS: POTASSIUM CHLORIDE ER 20 MEQ TAB.ER PO SCH (10:14)
[2022-10-13] MEDS: MAGNESIUM HYDROXIDE 2,400 MG/10 ML CUP PO SCH (10:16)
[2022-10-13] MEDS: PANTOPRAZOLE 40 MG/10 ML VIAL IVP SCH (10:40)
[2022-10-13] MEDS ORDERED: fentaNYL (PF) 50 MCG/ML 2 ML AMP IVP ONE ×3 (11:15→16:50)
--- NOTE | 2022-10-13 12:14 | P.PN ---
Progress Note - Text Progress Note Date: 10/13/22 Mr. Jackson is presenting for evaluation of neck pain. It was my pleasure to have seen and examined Mr. Jackson. In our visit today we have had a chance to go over subjective complaints, physical examination findings and treatments including the natural course history without intervention and various interventional options. The patients imaging demonstrates: [facility]: IMPRESSION: 1. Multilevel disc degeneration changes with severe spinal canal stenosis at C5- C6 and C6-C7 with moderate spinal canal stenosis C3 to C5 spinal levels. 2. Multilevel uncovertebral facet joint arthropathy with findings worse at C5- C6 on the left and C4-C5 bilaterally. There is relatively moderate to severe neural foraminal stenosis throughout the cervical spine. On physical exam, Mr. Jackson demonstrates: an aching, burning, and sharp cervical pain that it radiates into the bilateral upper extremities, associated with numbness and tingling; severe in the left greater than the right. Patient reports he is unable to move his left arm without physically moving it with his right. Patient has had increase in burning sensation into his left upper extremity that radiates into his left axilla. Overall the patient has seen a progressive increase in symptoms since their onset. I have explained to the patient that as their condition progresses it will cause further neurological deficits and eventual paralysis. Based on the patients imaging, physical exam, and the rapid progression and disabling nature of their symptoms, at this time I recommend surgery in the form of a: Stage I: C3-7 ACDF / Stage II: C2-T2 decompression and fusion. I discussed the risk and benefits of this procedure at length with Mr. Jackson. The patient agreed to considered pursuing the procedure above mentioned. Prior to surgery, she should follow up with her PCP (Cardio, ID, IM etc) for clearance. Questions were invited and answered, and the patient wishes to proceed as outlined below. Currently, I am recommendin.Stage I: C3-7 ACDF / Stage II: C2-T2 decompression and fusion 2.Follow up with PCP for surgical clearance 3.Review of surgical risks and benefits as well as an educational packet on the proposed surgical procedure. Risks: All surgical procedures come with inherent risks, including those related to positioning, anesthesia, intraoperative findings, and postoperative complications. It is important to understand that surgery does not come with any guarantee of a successful outcome as complications and adverse events are always possible. The patient was given a handout in office today discussing the surgical procedure and risks associated with the intervention, both of which were disc ussed with the patient. These risks include but are not limited to the following: * Experiencing same, different or even worse symptoms in back, neck, arms, or legs compared to before surgery. Requiring further surgery or other forms of treatment presently or at some time in the future at same or other levels of the intended spine surgery. On an extreme but fortunately relatively rare basis severe complication such as blindness, stroke, heart attack, temporary and/or permanent nerve injury, paralysis, coma, or may occur, sometimes without known explanation. Surgical complications may include but are not limited to risk of infection, fluid accumulation in the surgical dissection site, including a seroma or hematoma, that requires additional surgery, wound drainage, bleeding, new numbness or weakness, vision changes/loss, spinal fluid leakage, non-healing and/or infected incision, headaches, difficulty or inability to swallow, hoarseness, hemopneumothorax, pneumothorax, impotence, retrograde ejaculation, vaginal dryness; injury to nerves, spinal cord, blood vessels, lymphatics or other vital organs (i.e., bowel injury, injury to the great vessels); hetero topic bone formation; complications related to the hardware such as screws, rods, cages including misplaced hardware, device failure, instrumentation at the wrong spine level, hardware fracture/breakage, or hardware loosening; vertebral failure of the spinal column above or below the newly placed hardware; retained surgical instrumentations or devices and the need for further surgery. * Medical risks of the planned spine surgery include but are not limited to generalized Infections to the whole body or local areas outside of the surgical site (sepsis), heart attack, bleeding, anaphylaxis, meningitis, seizure, epilepsy, hearing loss, burn randhawa, laceration of the head or other areas of the body, bruising, hypersensitivity of the skin, bladder over distension; allergic reaction; shoulder injury related to positioning; fat, blood and air clots to other areas of the body like heart, lungs, brain; failure of internal organs such as lungs, kidneys, liver and excessive bleeding. If blood transfusions are necessary, note that transfusions may cause intolerance reactions such as anaphylaxis or other complex reactions. Despite best efforts, the results of spine surgery might not heal in terms of bone, soft tissues such as skin, fascia, ligaments, and joints. Additionally, in order to achieve best possible results, spine surgery may be carried out beyond the initially planned levels and involve decompression, fusion including insertion of hardware at levels other than the original intended area of surgical interest change some portions of the procedure in order to ensure the best possible outcomes. With spine surgery and spinal fusion, there are different off label uses of instrumentation (devices, implants and hardware) as well as biological substances (bone morphogenic proteins, demineralized bone matrix) as well as using extra bone from allograft sources (i.e. cadaver bone) or autograft (iliac crest bone, ribs, or the spine itself). The patient has been given information about these practices and their inherent risks and benefits. [facility] is an educational center that serves as a training facility for neurosurgical and orthopedic [employer] and Nursing students. Physician assistants are medically trained surgical providers who function in the outpatient, inpatient, and operating room setting under the direct supervision of the attending surgeon. [facility] has multiple operating rooms with single and overlapping rooms running daily. They currently function under the required guidelines as produced by the [facility] Finance Committee with regards to the overlapping rooms and will continue to comply with changes to this policy as they occur. The requirements include and are complied with as follows: (1) the critical portions of the overlapping rooms will not occur at the same time, (2) the attending physician will be physically present during the critical portions of the procedure and immediately available during the entire case, and (3) a back-up attending is designated should the primary attending not be immediately available. The patient has had a chance to review all the listed information, has been given print outs detailing this information, and has had all his/her questions answered to their satisfaction. It was my pleasure to have seen and examined Mr. Jackson. In our visit today we have had a chance to go over my understanding of our patient's current condition, the natural course history without intervention and various interventional options. Questions were invited and answered, and the patient wishes to proceed as outlined above. I have seen and examined the patient for 25 minutes and we have spent more than 50% of the time in repeat and detailed counseling about the patient's condition, its natural course history with out and as much as can be predicted with surgery and re-review of various surgical treatment options. In conclusion, Mr. Jackson and requested we proceed with the above suggested surgery and are willing to accept risks and limitations of the suggested surgery as nature of the disease process and our best attempts at treatment for the c ondition. Thank you again for allowing us to be part of your patient's care. Please don't hesitate to contact me if you have any further questions.
[2022-10-13] MEDS ORDERED: fentaNYL (PF) 50 MCG/ML 2 ML AMP ONE (12:48)
[2022-10-13] MEDS ORDERED: SUCCINYLCHOLINE CHLORIDE 200 MG/10 ML VIAL IV ONE (12:48)
[2022-10-13] MEDS ORDERED: PROPOFOL 10 MG/ML 20 ML VIAL IV ONE (12:48)
[2022-10-13] MEDS ORDERED: HYDROmorphone (PF) 1 MG/ML ONE (12:48)
[2022-10-13] MEDS ORDERED: ROCURONIUM 10 MG/ML (5 ML VIAL) IV ONE (12:48)
[2022-10-13] MEDS ORDERED: KETAMINE 10 MG/ML 20 ML VIAL ONE (12:48)
[2022-10-13] MEDS ORDERED: ONDANSETRON 4 MG/2 ML VIAL ONE (12:48)
[2022-10-13] MEDS ORDERED: TRANEXAMIC 1,000 MG/100ML-NACL PREMIX BAG ONE (12:48)
[2022-10-13] MEDS ORDERED: LIDOCAINE 2% INJ 20 MG/ML (2 ML VIAL) ONE (12:48)
[2022-10-13] MEDS ORDERED: PHENYLEPHRINE-0.9% NACL SYG 1,000 MCG/10 ML SYRINGE ONE (12:48)
[2022-10-13] MEDS ORDERED: MIDAZOLAM 2 MG/2 ML VIAL ONE (12:48)
[2022-10-13] MEDS ORDERED: LIDOCAINE 2%-EPI 1:100,000 20 ML VIAL SQ ONE (13:59)
[2022-10-13] MEDS ORDERED: GELATIN SPONGE,ABSORB (LARGE) 1 EACH SPONGE MISCELLANE ONE (13:59)
[2022-10-13] MEDS ORDERED: BUPIVACAINE (PF) 0.5% 30 ML VIAL SQ ONE (13:59)
[2022-10-13] MEDS ORDERED: THROMBIN (BOVINE) 5,000 UNIT VIAL MISCELLANE ONE (14:00)
[2022-10-13] MEDS ORDERED: GENTAMICIN 80 MG in SODIUM CHLORIDE 0.9% IRRIGATIO 3,000 ML IRRIGATION ONE (14:30)
[2022-10-13] MEDS ORDERED: ceFAZolin 3,000 MG in SODIUM CHLORIDE 0.9% IRRIGATIO 3,000 ML IRRIGATION ONE (14:30)
[2022-10-13] MEDS ORDERED: VANCOMYCIN 1,000 MG VIAL MISCELLANE ONE (15:22)
[2022-10-13] MEDS ORDERED: LACTATED RINGERS 1,000 ML IV ONE ×3 (15:40→15:45)
[2022-10-13] MEDS ORDERED: NALOXONE 0.4 MG/ML 1 ML VIAL IV PRN (17:55)
[2022-10-13] MEDS: HYDROmorphone PCA 10 MG/50 ML BAG IV PRN (18:38)
[2022-10-13] MEDS: ATORVASTATIN 10 MG TAB PO SCH (21:35)
[2022-10-13] MEDS: TEMAZEPAM 15 MG CAP PO SCH (21:35)
[2022-10-13] MEDS: QUEtiapine 100 MG TAB PO SCH (21:35)
[2022-10-14] MEDS: LACTATED RINGERS 1,000 ML IV SCH (05:42)
[2022-10-14] MEDS: HYDROmorphone PCA 10 MG/50 ML BAG IV PRN ×2 (06:37→18:12)
[2022-10-14] MEDS: ACETAMINOPHEN TAB 500 MG TAB PO SCH ×3 (06:46→18:17)
[2022-10-14] MEDS: FUROSEMIDE 80 MG TAB PO SCH (07:38)
[2022-10-14] MEDS: MAGNESIUM HYDROXIDE 2,400 MG/10 ML CUP PO SCH (07:38)
[2022-10-14] MEDS: FERROUS SULFATE 325 MG TAB PO SCH (07:51)
[2022-10-14] MEDS: POTASSIUM CHLORIDE ER 20 MEQ TAB.ER PO SCH (07:51)
[2022-10-14] MEDS: GABAPENTIN 300 MG CAP PO SCH ×3 (07:51→21:13)
[2022-10-14] MEDS: METOPROLOL SUCCINATE (ER) 50 MG TAB.ER.24H PO SCH (07:51)
[2022-10-14] MEDS: SENNOSIDES-DOCUSATE SODIUM 1 EACH TAB PO SCH (07:51)
[2022-10-14] MEDS: PANTOPRAZOLE 40 MG/10 ML VIAL IVP SCH (07:53)
--- NOTE | 2022-10-14 08:29 | P.PN ---
Subjective Progress Note Date: 10/14/22 Principal diagnosis: Status post ACDF C3-C6, C2-T1 posterior decompression and fusion Patient was examined today at bedside, he is resting his hospital bed. Patient is utilizing rigid c-collar at this time. Both anterior and posterior drains are in good position and condition. Patient has been utilizing the KEG RAISER pump, he has noticed an improvement in his overall pain. He states that the left upper extremity is moving a lot better this morning since surgery from yesterday. He does complain of some vague numbness and tingling along with discomfort on the C5-C6 nerve distribution. Urinary catheter remains in place at this time. He denies any difficulty with swallowing, chest pain, shortness of breath, nausea or vomiting. Objective - Vital Signs Vital signs: Vital Signs Temp 98.8 F 10/14/22 01:49 Pulse 99 10/14/22 01:49 Resp 16 10/14/22 01:49 BP 146/81 10/14/22 01:49 Pulse Ox 96 10/14/22 01:49 FiO2 Intake & Output 10/13/22 10/14/22 10/14/22 18:59 06:59 18:59 Intake Total 2252 Output Total 350 2580 Balance 1902 -2580 Intake: IV 2252 Output: Drainage 130 Anterior Neck 10 Posterior Neck 120 Urine 250 2450 Estimated Blood Loss 100 Other: Voiding Method Indwelling Catheter Indwelling Catheter - Exam Gen: AOx3, NAD VSS stable at this time Integument: Postoperative bandages over the anterior and posterior incision are in good position and condition. There is very minimal drainage noted in the anterior drain, the posterior drain has a mild/moderate amount of serous segments fluid. Palpation: Patient demonstrates tenderness with palpation to brianda nterior and posterior cervical region a ROM: Full range of motion in all major muscle groups of bilateral upper and lower extremities, no focal deficits are appreciated. Contraction noted in the left hand including the second through fourth and fifth digits, this was present prior to his surgery. Sensory Exam: Senory exam to light touch is intact C5-T1, light touch diminished in the C5-C7 region on the left side, Senosry exam to light touch is intact L2-S1 Motor: 5/5 strength appreciated in the bilateral lower extremities with hip flexion, knee extension, knee flexion, plantar flexion, dorsiflexion, EHL, FHL 4-/5 strength appreciated in the right upper extremity with shoulder elevation, elbow extension, elbow flexion, wrist extension, wrist flexion, marker assembler 3-/5 strength appreciated in the left upper extremity with shoulder elevation, elbow extension, elbow flexion, wrist extension, wrist flexion, marker assembler Reflexes: 2/4 in all UE and LE Positive Leila's bilaterally Negative Babinski bilaterally Negative clonus bilaterally - Labs CBC & Chem 7: 10/12/22 08:17 10/12/22 08:17 Assessment and Plan Assessment: Postoperative day #3 status post ACDF C3-C6 Postoperative day #1 status post C2-T1 posterior decompression and fusion Bilateral upper extremity radiculopathy Bilateral upper extremity weakness Myelopathy left upper extremity Plan: Pain control, discussed the patient we would utilize the KEG RAISER over the next 24 hours and plan to discontinue. The plan will be to restart his oral medications and limit the IV pain medication as best as possible. DVT prophylaxis, okay to begin subcu heparin later today. Plan will be to resume Plavix in the next 2448 hours. Maintain hard c-collar at this time. Prescription has been placed in the chart for replacement pads for the rigid c-collar, he will utilize his brace over the next 3-6 months. Plan is to remove anterior drain later today and change dressing. Weight-bear as tolerated, recommend use of a walker. Hard collar must be on at all times. Avoid bending, lifting, twisting at this time Encourage incentive spirometer Continue with use of urinary catheter, plan to remove on 10/15/2022 Other medical technologist chief and recommendations appreciated Further recommendations to follow Time with Patient: Less than 30
--- NOTE | 2022-10-14 14:36 | P.PN ---
Subjective Progress Note Date: 10/13/22 (Delayed entry note for services provided on 10/13/2022) Principal diagnosis: Neck pain due to cervical spinal stenosis Bilateral upper extremity weakness related to above History of CVA History of carotid stenosis COPD Stairs extensive smoking and nicotine use Sleep disorder breathing and sleep apnea Objective - Vital Signs Vital signs: Vital Signs Temp 98.4 F 10/14/22 13:39 Pulse 85 10/14/22 13:39 Resp 15 10/14/22 13:39 BP 133/81 10/14/22 13:39 Pulse Ox 96 10/14/22 13:39 FiO2 Intake & Output 10/13/22 10/14/22 10/14/22 18:59 06:59 18:59 Intake Total 2252 Output Total 350 2580 Balance 1902 -2580 Intake: IV 2252 Output: Drainage 130 Anterior Neck 10 Posterior Neck 120 Urine 250 2450 Estimated Blood Loss 100 Other: Voiding Method Indwelling Catheter Indwelling Catheter Indwelling Catheter - Constitutional General appearance: Present: average body habitus, cooperative, disheveled - EENT Eyes: Present: PERRLA ENT: Present: normal oropharynx Ears: bilateral: normal - Neck Details: Patient has a c-collar - Respiratory Respiratory: bilateral: CTA - Cardiovascular Rhythm: regular Heart sounds: normal: S1, S2 - Gastrointestinal General gastrointestinal: Present: decreased bowel sounds - Integumentary Integumentary: Present: normal turgor - Neurologic Neurologic: Present: CNII-XII intact - Musculoskeletal Musculoskeletal: Present: gait normal, generalized weakness, strength equal bilaterally - Psychiatric Psychiatric: Present: A&O x's 3 - Labs CBC & Chem 7: 10/12/22 08:17 10/12/22 08:17 Assessment and Plan Assessment: Neck pain due to cervical spinal stenosis Bilateral upper extremity weakness related to above History of CVA History of carotid stenosis COPD Stairs extensive smoking and nicotine use Sleep disorder breathing and sleep apnea Plan: Continue pain management Patient is scheduled for surgery of C-spine later on Continue home medications Broad-spectrum antibiotics with IV Cefizox and DVT prophylaxis as per orthopedic service recommendation IV rehydration with with Ringer's lactate Time with Patient: Greater than 30
--- NOTE | 2022-10-14 14:40 | P.PN ---
Subjective Progress Note Date: 10/14/22 Principal diagnosis: Neck pain due to cervical spinal stenosis Bilateral upper extremity weakness related to above History of CVA History of carotid stenosis COPD Stairs extensive smoking and nicotine use Sleep disorder breathing and sleep apnea 10/14/2022, patient seen eval examined, pain severity significantly improve compared to yesterday, patient is status post ACDF C3 to C6 and C2 to T1 posterior decompression fusion, patient has a c-collar, patient has an TM poste rior drain along with FAILURE ANALYSIS ENGINEER pump patient has bilateral upper extremity weakness which has improved compared to yesterday preoperatively. Spine surgery has been following hemodynamic status stable Objective - Vital Signs Vital signs: Vital Signs Temp 98.4 F 10/14/22 13:39 Pulse 85 10/14/22 13:39 Resp 15 10/14/22 13:39 BP 133/81 10/14/22 13:39 Pulse Ox 96 10/14/22 13:39 FiO2 Intake & Output 10/13/22 10/14/22 10/14/22 18:59 06:59 18:59 Intake Total 2252 Output Total 350 2580 Balance 1902 -2580 Intake: IV 2252 Output: Drainage 130 Anterior Neck 10 Posterior Neck 120 Urine 250 2450 Estimated Blood Loss 100 Other: Voiding Method Indwelling Catheter Indwelling Catheter Indwelling Catheter - Exam - Constitutional General appearance: Present: average body habitus, cooperative, disheveled - EENT Eyes: Present: PERRLA ENT: Present: normal oropharynx Ears: bilateral: normal - Neck Details: Patient has a c-collar - Respiratory Respiratory: bilateral: CTA - Cardiovascular Rhythm: regular Heart sounds: normal: S1, S2 - Gastrointestinal General gastrointestinal: Present: decreased bowel sounds - Integumentary Integumentary: Present: normal turgor - Neurologic Neurologic: Present: CNII-XII intact - Musculoskeletal Musculoskeletal: Present: gait normal, generalized weakness, strength equal bilaterally with bilateral upper extremity weakness more so on the left side - Psychiatric Psychiatric: Present: A&O x's 3 - Labs CBC & Chem 7: 10/12/22 08:17 10/12/22 08:17 Assessment and Plan Assessment: Neck pain due to cervical spinal stenosis Bilateral upper extremity weakness related to above History of CVA History of carotid stenosis COPD Stairs extensive smoking and nicotine use Sleep disorder breathing and sleep apnea Plan: Continue pain management Patient is scheduled for surgery of C-spine later on Continue home medications Broad-spectrum antibiotics with IV Cefizox and DVT prophylaxis as per orthopedic service recommendation IV rehydration with with Ringer's lactate Time with Patient: Greater than 30
[2022-10-14] MEDS: 0.9% NACL WITH KCL 20 MEQ/L 1,000 ML IV SCH (21:12)
[2022-10-14] MEDS: TEMAZEPAM 15 MG CAP PO SCH (21:13)
[2022-10-14] MEDS: ALPRAZolam 0.5 MG TAB PO PRN (21:13)
[2022-10-14] MEDS: ATORVASTATIN 10 MG TAB PO SCH (21:13)
[2022-10-14] MEDS: QUEtiapine 100 MG TAB PO SCH (21:14)
[2022-10-14] MEDS: HEPARIN SODIUM,PORCINE/PF 5,000 UNIT/0.5 ML SYRINGE SQ SCH (21:14)
[2022-10-15] MEDS: ACETAMINOPHEN TAB 500 MG TAB PO SCH ×5 (00:28→22:49)
[2022-10-15] MEDS: LACTATED RINGERS 1,000 ML IV SCH (04:38)
[2022-10-15] MEDS: PANTOPRAZOLE 40 MG/10 ML VIAL IVP SCH (08:14)
[2022-10-15] MEDS: HEPARIN SODIUM,PORCINE/PF 5,000 UNIT/0.5 ML SYRINGE SQ SCH ×2 (08:34→22:49)
[2022-10-15] MEDS: METOPROLOL SUCCINATE (ER) 50 MG TAB.ER.24H PO SCH (08:35)
[2022-10-15] MEDS: POTASSIUM CHLORIDE ER 20 MEQ TAB.ER PO SCH (08:35)
[2022-10-15] MEDS: SENNOSIDES-DOCUSATE SODIUM 1 EACH TAB PO SCH (08:35)
[2022-10-15] MEDS: FERROUS SULFATE 325 MG TAB PO SCH (08:35)
[2022-10-15] MEDS: GABAPENTIN 300 MG CAP PO SCH ×3 (08:35→22:49)
[2022-10-15] MEDS: FUROSEMIDE 80 MG TAB PO SCH (08:36)
[2022-10-15] MEDS: MAGNESIUM HYDROXIDE 2,400 MG/10 ML CUP PO SCH (08:36)
--- NOTE | 2022-10-15 11:07 | P.PN ---
Subjective Progress Note Date: 10/15/22 Principal diagnosis: Neck pain due to cervical spinal stenosis Bilateral upper extremity weakness related to above History of CVA History of carotid stenosis COPD Stairs extensive smoking and nicotine use Sleep disorder breathing and sleep apnea 10/15/2022, patient seen and evaluated examined resting comfortably on MECHANIST pump With Dilaudid, patient has been started on DVT prophylaxis subcu heparin also on oral pain medicine otherwise afebrile, hemodynamically stable oxygen saturation is 95% has been off and on on oxygen 10/14/2022, patient seen eval examined, pain severity significantly improve compared to yesterday, patient is status post ACDF C3 to C6 and C2 to T1 posterior decompression fusion, patient has a c-collar, patient has an TM posterior drain along with MECHANIST pump patient has bilateral upper extremity weakness which has improved compared to yesterday preoperatively. Spine surgery has been following hemodynamic status stable Objective - Vital Signs Vital signs: Vital Signs Temp 98.6 F 10/15/22 07:22 Pulse 104 H 10/15/22 07:22 Resp 18 10/15/22 07:22 BP 146/88 10/15/22 07:22 Pulse Ox 95 10/15/22 07:22 FiO2 Intake & Output 10/14/22 10/15/22 10/15/22 18:59 06:59 18:59 Intake Total 1120 Output Total 2120 1700 Balance -2119 -580 Intake: Oral 1120 Output: Drainage 120 50 Posterior Neck 120 50 Urine 2000 1650 Other: Voiding Method Indwelling Catheter Indwelling Catheter - Exam - Constitutional General appearance: Present: average body habitus, cooperative, disheveled - EENT Eyes: Present: PERRLA ENT: Present: normal oropharynx Ears: bilateral: normal - Neck Details: Patient has a c-collar - Respiratory Respiratory: bilateral: CTA - Cardiovascular Rhythm: regular Heart sounds: normal: S1, S2 - Gastrointestinal General gastrointestinal: Present: decreased bowel sounds - Integumentary Integumentary: Present: normal turgor - Neurologic Neurologic: Present: CNII-XII intact - Musculoskeletal Musculoskeletal: Present: gait normal, generalized weakness, strength equal bilaterally with bilateral upper extremity weakness more so on the left side - Psychiatric Psychiatric: Present: A&O x's 3 - Labs CBC & Chem 7: 10/12/22 08:17 10/12/22 08:17 Assessment and Plan Assessment: Neck pain due to cervical spinal stenosis Bilateral upper extremity weakness related to above History of CVA History of carotid stenosis COPD Stairs extensive smoking and nicotine use Sleep disorder breathing and sleep apnea Plan: Continue pain management Patient is status post for staged surgery of C-spine Continue home medications Broad-spectrum antibiotics with IV cefazolin and DVT prophylaxis as per orthopedic service recommendation IV rehydration with with Ringer's lactate Time with Patient: Greater than 30
[2022-10-15] MEDS: HYDROmorphone PCA 10 MG/50 ML BAG IV PRN (11:27)
--- NOTE | 2022-10-15 11:31 | P.PN ---
Subjective Progress Note Date: 10/15/22 Patient resting comfortably on room. No complaints currently. Per nursing is doing fairly well with ACUPRESSURE THERAPIST we will likely discontinue this today or tomorrow and switch back to regular medications. The patient's does need significant PT in the hospital to get him ready for home is not currently ready. Objective - Vital Signs Vital signs: Vital Signs Temp 98.6 F 10/15/22 07:22 Pulse 104 H 10/15/22 07:22 Resp 18 10/15/22 07:22 BP 146/88 10/15/22 07:22 Pulse Ox 95 10/15/22 07:22 FiO2 Intake & Output 10/14/22 10/15/22 10/15/22 18:59 06:59 18:59 Intake Total 1120 Output Total 2120 1700 Balance -0 -580 Intake: Oral 1120 Output: Drainage 120 50 Posterior Neck 120 50 Urine 2000 1650 Other: Voiding Method Indwelling Catheter Indwelling Catheter - Exam Physical Exam: -Patient is alert and oriented 3 appears well-nourished well-hydrated is in no acute distress. They do not appear septic. -There is TTP around the incisions [-Incision is CDI, no EEE, no drainage] -Upper extremities show 4 out of 5 strength in all major muscle groups. Continue deconditioning -Lower extremities with 4 out of 5 strength in all major muscle groups -There is [FROM] that is [painless] of the b/l UE and LE in all major joints. -They are intact to light touch sensation in C5 to T1 and L2 to S1 nerve distribution. -DTR [2]/4 all upper and lower extremities -Patient has palpable distal pulses all 4 ext -Compartments are soft and compressible. -Patient shows a negative Shahriar's [-Neg Hoffmans b/l] [-Neg Clonus b/l] [-Neg babinski b/l] Cranial nerves II through XII are grossly intact. - Labs CBC & Chem 7: 10/12/22 08:17 10/12/22 08:17 Assessment and Plan Assessment: Postop day 5 and 2 from C3 through C6 ACDF and C2 to T1 decompression fusion Chronic pain narcotic dependency Plan: -Appreciate pharmacy consultant and team management. -Activity: Ambulate QID, OOB all meals, up and about, limit lifting bending twisting to less than 5 lbs. Use walker or cane if needed for stability. -Daily PT/OT, increase ambulation strength and balance. -[Hard cervical collar at all times -Pain control: [Adequate at this time] -Meds: [reviewed] -GI ppx: senna, Miralax -DC lee when up and about, bedside commode if needed -DVT PPX: Continue chemoprophylaxis with has an SCDs and early ambulation -Hygiene: Shower today. Maintain dressing clean and dry. Meticulous cleaning after BMs away from incision site -Drains: DC -Encourage IS 10x/hr -Dispo: Plan for home Monday or Monday
[2022-10-15] MEDS: HYDROmorphone 1 MG/ML 1 ML SYRINGE IVP PRN (21:29)
[2022-10-15] MEDS: ATORVASTATIN 10 MG TAB PO SCH (21:29)
[2022-10-15] MEDS: 0.9% NACL WITH KCL 20 MEQ/L 1,000 ML IV SCH (22:48)
[2022-10-15] MEDS: TEMAZEPAM 15 MG CAP PO SCH (22:49)
[2022-10-15] MEDS: QUEtiapine 100 MG TAB PO SCH (22:50)
[2022-10-15] MEDS: ALPRAZolam 0.5 MG TAB PO PRN (22:56)
[2022-10-16 00:14] LABS: ABG HCO3 30 mmol/L (21-25); ABG Oxygen Saturation 95.9 % (94-97); ABG PCO2 46 mmHg (35-45); ABG PH 7.42 (7.35-7.45); ABG PO2 74 mmHg (83-108); ABG TCO2 31 mmol/L (19-24); Allen Test Performed? Yes
[2022-10-16] MEDS: LACTATED RINGERS 1,000 ML IV SCH (00:38)
--- NOTE | 2022-10-16 00:55 | CT ---
EXAM: CT Head Without Intravenous Contrast CLINICAL HISTORY: Mental Status changes TECHNIQUE: Axial computed tomography images of the head/brain without intravenous contrast. CTDI is 49.2 mGy and DLP is 1247.4 mGy-cm. This CT exam was performed using one or more of the following dose reduction techniques: automated exposure control, adjustment of the mA and/or kV according to patient size, and/or use of iterative reconstruction technique. COMPARISON: 08/08/2020 FINDINGS: Brain: No acute hemorrhage or abnormal extra-axial fluid collection. No acute stroke. Redemonstrated old left frontal cortical and subcortical infarct in right frontal white matter infarct. Mild supratentorial periventricular and subcortical white matter changes. Age- appropriate generalized atrophy. Ventricles: No hydrocephalus. No midline shift. Bones/joints: No acute fracture. Partially visualized postsurgical changes of the spine. Soft tissues: Multiple bilateral cutaneous erik with small amount of gas underlying soft tissue. Sinuses: Unremarkable as visualized. No acute sinusitis. IMPRESSION: No acute stroke or hemorrhage. Bilateral remote infarcts. Non-specific white matter changes, most commonly seen with small vessel disease. Bilateral skin erik line fluid/infiltration without underlying fracture, recommend correlation to clinical history.
[2022-10-16] MEDS: ACETAMINOPHEN TAB 500 MG TAB PO SCH ×4 (06:39→22:27)
[2022-10-16] MEDS: FERROUS SULFATE 325 MG TAB PO SCH (08:21)
[2022-10-16] MEDS: GABAPENTIN 300 MG CAP PO SCH ×3 (08:21→21:06)
[2022-10-16] MEDS: METOPROLOL SUCCINATE (ER) 50 MG TAB.ER.24H PO SCH (08:21)
[2022-10-16] MEDS: SENNOSIDES-DOCUSATE SODIUM 1 EACH TAB PO SCH (08:21)
[2022-10-16] MEDS: POTASSIUM CHLORIDE ER 20 MEQ TAB.ER PO SCH (08:21)
[2022-10-16] MEDS: PANTOPRAZOLE 40 MG/10 ML VIAL IVP SCH (08:22)
[2022-10-16] MEDS: HEPARIN SODIUM,PORCINE/PF 5,000 UNIT/0.5 ML SYRINGE SQ SCH ×2 (08:22→21:06)
[2022-10-16] MEDS: FUROSEMIDE 80 MG TAB PO SCH (08:23)
[2022-10-16] MEDS: MAGNESIUM HYDROXIDE 2,400 MG/10 ML CUP PO SCH (08:23)
[2022-10-16] MEDS: HYDROmorphone 1 MG/ML 1 ML SYRINGE IVP PRN ×4 (10:38→22:26)
--- NOTE | 2022-10-16 12:07 | P.PN ---
Subjective Progress Note Date: 10/16/22 Principal diagnosis: Status post ACDF C3-C6, C2-T1 posterior decompression and fusion Patient was examined today at bedside, he is resting his hospital bed. Patient is utilizing rigid c-collar at this time. Patient had an episode of altered mental status last night per nursing, neurology was consulted and internal medicine was notified. Patient was apparently out of his brace and walking the halls. Patient has no recollection of this. Currently, he is having no worsening pain of the cervical spine. He's been urinating with no difficulties. The CUTTER OPERATOR BRICK pump was discontinued yesterday evening. Currently denies headaches, lightheadedness, chest pain, shortness of breath, nausea or vomiting. Objective - Vital Signs Vital signs: Vital Signs Temp 98.6 F 10/16/22 07:06 Pulse 106 H 10/16/22 08:22 Resp 16 10/16/22 08:22 BP 139/73 10/16/22 07:06 Pulse Ox 98 10/16/22 07:06 FiO2 Intake & Output 10/15/22 10/16/22 10/16/22 18:59 06:59 18:59 Output Total 1670 815 Balance -1670 -815 Output: Drainage 60 15 Posterior Neck 60 15 Urine 1610 800 Uretheral (Maier) 1310 Other: Voiding Method Urinal Urinal # Voids 2 - Exam Gen: AOx3, NAD VSS stable at this time Integument: Both anteroposterior dressings were removed today at bedside. The posterior drain was also removed. New optifoam dressing placed both anteriorly and posteriorly. Soft tissue swelling appreciated to the medial trap Palpation: Patient demonstrates tenderness with palpation to the anterior and posterior cervical region ROM: Full range of motion in all major muscle groups of bilateral upper and lower extremities, no focal deficits are appreciated. Contraction noted in the left hand including the second through fourth and fifth digits, this was present prior to his surgery. Sensory Exam: Senory exam to light touch is intact C5-T1, light touch diminished in the C5-C7 region on the left side, Senosry exam to light touch is intact L2-S1 Motor: 5/5 strength appreciated in the bilateral lower extremities with hip flexion, knee extension, knee flexion, plantar flexion, dorsiflexion, EHL, FHL 4-/5 strength appreciated in the right upper extremity with shoulder elevation, elbow extension, elbow flexion, wrist extension, wrist flexion, gravedigger 3+/5 strength appreciated in the left upper extremity with shoulder elevation, elbow extension, elbow flexion, wrist extension, wrist flexion, gravedigger Reflexes: 2/4 in all UE and LE Positive Leila's bilaterally Negative Babinski bilaterally Negative clonus bilaterally - Labs CBC & Chem 7: 10/12/22 08:17 10/12/22 08:17 Labs: Abnormal Lab Results - Last 24 Hours (Table) 10/16/22 Range/Units 00:09 ABG pCO2 46 H (35-45) mmHg ABG pO2 74 L (83-108) mmHg ABG HCO3 30 H (21-25) mmol/L ABG Total CO2 31 H (19-24) mmol/L Assessment and Plan Assessment: Postoperative day #5 status post ACDF C3-C6 Postoperative day #3 status post C2-T1 posterior decompression and fusion Altered mental status, improved, likely medicine induced Bilateral upper extremity radiculopathy Bilateral upper extremity weakness Myelopathy left upper extremity Plan: Pain control, discussed the patient we would transition back to the Percocet 10 mg/325 mg. Attempt to continue to decrease the IV Dilaudid at this time. Continue stool softeners DVT prophylaxis, continue heparin during inpatient stay, plan to transition to Plavix at discharge Maintain hard c-collar at this time. Prescription has been placed in the chart for replacement pads for the rigid c-collar, he will utilize his brace over the next 3-6 months Monitor both anterior and posterior dressings. Plan to erik on the medial and lateral sides of his head on 10/17/2022 Weight-bear as tolerated, recommend use of a walker. Hard collar must be on at all times. Avoid bending, lifting, twisting at this time. Patient needs aggressive work with physical therapy, recommended when ambulating with walker Encourage incentive spirometer Other medical claims processor and recommendations appreciated Discharge planning: Hopeful discharge to subacute rehab the next 2448 hours Time with Patient: Less than 30
[2022-10-16 12:16] LABS: Basophils % (A) 0 %; Eosinophils # (A) 0.4 k/uL (0-0.7); Eosinophils % (A) 3 %; HCT 45.6 % (39.0-53.0); HGB 14.5 gm/dL (13.0-17.5); Lymphocytes # (A) 1.2 k/uL (1.0-4.8); Lymphocytes % (A) 12 %; MCH 29.8 pg (25.0-35.0); MCHC 31.9 g/dL (31.0-37.0); MCV 93.5 fL (80.0-100.0); Mean Platelet Volume 8.8; Monocytes # (A) 0.7 k/uL (0-1.0); Monocytes % (A) 7 %; Neutrophils # (A) 7.9 k/uL (1.3-7.7); Neutrophils % (A) 76 %; Platelet Count 243 k/uL (150-450); RBC 4.87 m/uL (4.30-5.90); RDW 12.9 % (11.5-15.5); WBC 10.3 k/uL (3.8-10.6)
[2022-10-16 12:36] LABS: ALT 16 U/L (4-49); AST 27 U/L (17-59); African American GFR (CKD) >90 (>60 ml/min/1.73 sqM); Albumin 3.6 g/dL (3.5-5.0); Albumin/Globulin Ratio 1.4; Alkaline Phosphatase 79 U/L (38-126); Anion Gap 7 mmol/L; Blood Urea Nitrogen 10 mg/dL (9-20); Calcium 9.1 mg/dL (8.4-10.2); Carbon Dioxide 29 mmol/L (22-30); Chloride 99 mmol/L (98-107); Globulin 2.5 g/dL; Glucose 116 mg/dL (74-99); Non-African American GFR(CKD) >90 (>60 ml/min/1.73 sqM); Potassium 5.3 mmol/L (3.5-5.1); Sodium 135 mmol/L (137-145); Total Bilirubin 0.9 mg/dL (0.2-1.3); Total Protein 6.1 g/dL (6.3-8.2)
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
[2022-10-16] MEDS ORDERED: TEMAZEPAM 15 MG CAP PO PRN (13:15)
[2022-10-16 13:40] LABS: T4, Free (Free Thyroxine) 1.83 ng/dL (0.78-2.19)
--- NOTE | 2022-10-16 13:54 | P.PN ---
Subjective Progress Note Date: 10/16/22 Principal diagnosis: Episode of altered mental status due to sedative hypnotics and narcotics Neck pain due to cervical spinal stenosis Bilateral upper extremity weakness related to above History of CVA History of carotid stenosis COPD Stairs extensive smoking and nicotine use Sleep disorder breathing and sleep apnea 10/16/2022, patient seen eval examined during the rounds labs reviewed medications reviewed, appreciated input from neurology, patient mental status significantly improved, had an episode overnight when he was unresponsive arterial blood gas and computed tomography scan of the head was done as well, patient is mildly elevated, renal functions within normal limit arterial blood gas reviewed no evidence of hypercapnia and respiratory acidosis in good ox ygenation 10/15/2022, patient seen and evaluated examined resting comfortably on CLAIMS AGENT RIGHT OF WAY pump With Dilaudid, patient has been started on DVT prophylaxis subcu heparin also on oral pain medicine otherwise afebrile, hemodynamically stable oxygen saturation is 95% has been off and on on oxygen 10/14/2022, patient seen eval examined, pain severity significantly improve compared to yesterday, patient is status post ACDF C3 to C6 and C2 to T1 posterior decompression fusion, patient has a c-collar, patient has an TM posterior drain along with CLAIMS AGENT RIGHT OF WAY pump patient has bilateral upper extremity weakness which has improved compared to yesterday preoperatively. Spine surgery has been following hemodynamic status stable Objective - Vital Signs Vital signs: Vital Signs Temp 98.6 F 10/16/22 07:06 Pulse 106 H 10/16/22 08:22 Resp 16 10/16/22 08:22 BP 139/73 10/16/22 07:06 Pulse Ox 98 10/16/22 07:06 FiO2 Intake & Output 10/15/22 10/16/22 10/16/22 18:59 06:59 18:59 Output Total 1670 815 800 Balance -1670 -815 -800 Output: Drainage 60 15 Posterior Neck 60 15 Urine 1610 800 800 Uretheral (Maier) 1310 Other: Voiding Method Urinal Urinal # Voids 2 2 - Exam - Constitutional General appearance: Present: average body habitus, cooperative, disheveled - EENT Eyes: Present: PERRLA ENT: Present: normal oropharynx Ears: bilateral: normal - Neck Details: Patient has a c-collar - Respiratory Respiratory: bilateral: CTA - Cardiovascular Rhythm: regular Heart sounds: normal: S1, S2 - Gastrointestinal General gastrointestinal: Present: decreased bowel sounds - Integumentary Integumentary: Present: normal turgor - Neurologic Neurologic: Present: CNII-XII intact - Musculoskeletal Musculoskeletal: Present: gait normal, generalized weakness, strength equal bilaterally with bilateral upper extremity weakness more so on the left side - Psychiatric Psychiatric: Present: A&O x's 3 - Labs CBC & Chem 7: 10/16/22 11:48 10/16/22 11:48 Labs: Abnormal Lab Results - Last 24 Hours (Table) 10/16/22 10/16/22 10/16/22 Range/Units 00:09 11:48 11:48 Neutrophils # 7.9 H (1.3-7.7) k/uL ABG pCO2 46 H (35-45) mmHg ABG pO2 74 L (83-108) mmHg ABG HCO3 30 H (21-25) mmol/L ABG Total CO2 31 H (19-24) mmol/L Sodium 135 L (137-145) mmol/L Potassium 5.3 H (3.5-5.1) mmol/L Creatinine 0.57 L (0.66-1.25) mg/dL Glucose 116 H (74-99) mg/dL Total Protein 6.1 L (6.3-8.2) g/dL TSH 0.416 L (0.465-4.680) mIU/L Assessment and Plan Assessment: Episode of altered mental status likely related to narcotics and sedative hypnotics medications have been readjusted Neck pain due to cervical spinal stenosis Bilateral upper extremity weakness related to above History of CVA History of carotid stenosis COPD Stairs extensive smoking and nicotine use Sleep disorder breathing and sleep apnea Plan: Continue pain management Patient is status post for staged surgery of C-spine Continue home medications Broad-spectrum antibiotics with IV cefazolin and DVT prophylaxis as per orthopedic service recommendation IV rehydration with with Ringer's lactate Time with Patient: Greater than 30
[2022-10-16] MEDS: oxyCODONE-APAP 10-325MG 1 EACH TAB PO PRN ×2 (13:57→17:46)
[2022-10-16] MEDS: 0.9% NACL WITH KCL 20 MEQ/L 1,000 ML IV SCH (17:43)
[2022-10-16] MEDS: ATORVASTATIN 10 MG TAB PO SCH (21:06)
[2022-10-16] MEDS: QUEtiapine 100 MG TAB PO SCH (22:27)
[2022-10-17] MEDS: oxyCODONE-APAP 10-325MG 1 EACH TAB PO PRN ×4 (02:09→16:07)
[2022-10-17] MEDS: HYDROmorphone 1 MG/ML 1 ML SYRINGE IVP PRN ×6 (02:45→21:20)
[2022-10-17] MEDS: ACETAMINOPHEN TAB 500 MG TAB PO SCH ×2 (05:54→12:41)
[2022-10-17] MEDS: HEPARIN SODIUM,PORCINE/PF 5,000 UNIT/0.5 ML SYRINGE SQ SCH ×2 (08:18→19:58)
[2022-10-17] MEDS: PANTOPRAZOLE 40 MG/10 ML VIAL IVP SCH (08:19)
[2022-10-17] MEDS: FUROSEMIDE 80 MG TAB PO SCH (08:20)
[2022-10-17] MEDS: SENNOSIDES-DOCUSATE SODIUM 1 EACH TAB PO SCH (08:20)
[2022-10-17] MEDS: FERROUS SULFATE 325 MG TAB PO SCH (08:21)
[2022-10-17] MEDS: GABAPENTIN 300 MG CAP PO SCH ×3 (08:21→22:04)
[2022-10-17] MEDS: METOPROLOL SUCCINATE (ER) 50 MG TAB.ER.24H PO SCH (08:22)
[2022-10-17] MEDS: POTASSIUM CHLORIDE ER 20 MEQ TAB.ER PO SCH (08:22)
[2022-10-17] MEDS: MAGNESIUM HYDROXIDE 2,400 MG/10 ML CUP PO SCH (08:23)
[2022-10-17] MEDS: LACTATED RINGERS 1,000 ML IV SCH (10:28)
--- NOTE | 2022-10-17 15:01 | P.PN ---
Subjective Progress Note Date: 10/17/22 Principal diagnosis: Status post ACDF C3-C6, C2-T1 posterior decompression and fusion Patient was examined today at bedside, he is resting his hospital bed. Patient is utilizing rigid c-collar at this time. Currently, he is having no worsening pain of the cervical spine. He's been urinating with no difficulties. Currently denies headaches, lightheadedness, chest pain, shortness of breath, nausea or vomiting. Objective - Vital Signs Vital signs: Vital Signs Temp 98.6 F 10/17/22 13:52 Pulse 84 10/17/22 13:52 Resp 17 10/17/22 13:52 BP 147/81 10/17/22 13:52 Pulse Ox 97 10/17/22 13:52 FiO2 Intake & Output 10/16/22 10/17/22 10/17/22 18:59 06:59 18:59 Output Total 1700 Balance -1700 Output: Urine 1700 Other: Voiding Method Urinal # Voids 2 1 - Exam Gen: AOx3, NAD VSS stable at this time Integument: Anterior bandage was changed today, posterior bandage is in good position and condition. Skin erik were removed from the medial and lateral side of the head Palpation: Patient demonstrates tenderness with palpation to the anterior and posterior cervical region Still in both the medial and lateral aspect of the head ROM: Full range of motion in all major muscle groups of bilateral upper and lower extremities, no focal deficits are appreciated. Contraction noted in the left hand including the second through fourth and fifth digits, this was present prior to his surgery. Sensory Exam: Senory exam to light touch is intact C5-T1, light touch diminished in the C5-C7 region on the left side, Senosry exam to light touch is intact L2-S1 Motor: 5/5 strength appreciated in the bilateral lower extremities with hip flexion, knee extension, knee flexion, plantar flexion, dorsiflexion, EHL, FHL 4-/5 strength appreciated in the right upper extremity with shoulder elevation, elbow extension, elbow flexion, wrist extension, wrist flexion, substance abuse technician 3+/5 strength appreciated in the left upper extremity with shoulder elevation, elbow extension, elbow flexion, wrist extension, wrist flexion, substance abuse technician Reflexes: 2/4 in all UE and LE Positive Leila's bilaterally Negative Babinski bilaterally Negative clonus bilaterally - Labs CBC & Chem 7: 10/16/22 11:48 06/11/23 11:48 Assessment and Plan Assessment: Postoperative day #6 status post ACDF C3-C6 Postoperative day #4 status post C2-T1 posterior decompression and fusion Bilateral upper extremity radiculopathy Bilateral upper extremity weakness Myelopathy left upper extremity Plan: Pain control, continue Percocet 10 mg/325 mg. Attempt to continue to decrease the IV Dilaudid at this time. Continue stool softeners DVT prophylaxis, continue heparin during inpatient stay, plan to transition to Plavix at discharge Maintain hard c-collar at this time. Prescription has been placed in the chart for replacement pads for the rigid c-collar, he will utilize his brace over the next 3-6 months Monitor surgical dressing Weight-bear as tolerated, recommend use of a walker. Hard collar must be on at all times. Avoid bending, lifting, twisting at this time. Patient needs aggressive work with physical therapy, recommended when ambulating with walker Encourage incentive spirometer Other medical record specialist and recommendations appreciated Discharge planning: hopeful discharge to subacute rehab in the next 24-48 hours Time with Patient: Less than 30
--- NOTE | 2022-10-17 16:50 | P.OP ---
Date of Procedure: 10/13/22 Preoperative Diagnosis: 1. C3-7 Stenosis, spondylosis severe 2. Cervical Myelopathy 3. UE/LE weakness 4. Neck pain Postoperative Diagnosis: 1. C3-7 Stenosis, spondylosis severe 2. Cervical Myelopathy 3. UE/LE weakness 4. Neck pain Procedure(s) Performed: 1. C2-T1 posteriolateral stabilized fusion (65324, [id number]) 2. Segmental instrumentation C2-T1 (93243) 3. Bilateral laminectomy, partial medial facetecomy and foraminotomy C2-C7 ([id number], [id number]) Use of IONM Implants: 1. Soco posterior cervical system MagnatOs, Autograft Anesthesia: GETA Surgeon: Molina Victoria Loan Processing Supervisor #1: Nikita Gonzalez Estimated Blood Loss (ml): 200 IV fluids (ml): 500 Urine output (ml): 750 Pathology: none sent Condition: stable Disposition: PACU Indications for Procedure: Mr. Jackson is presenting for evaluation of neck pain. It was my pleasure to have seen and examined Mr. Jackson. In our visit today we have had a chance to go over subjective complaints, physical examination findings and treatments including the natural course history without intervention and various interventional options. The patients imaging demonstrates: [facility]: IMPRESSION: 1. Multilevel disc degeneration changes with severe spinal canal stenosis at C5- C6 and C6-C7 with moderate spinal canal stenosis C3 to C5 spinal levels. 2. Multilevel uncovertebral facet joint arthropathy with findings worse at C5- C6 on the left and C4-C5 bilaterally. There is relatively moderate to severe neural foraminal stenosis throughout the cervical spine. On physical exam, Mr. Jackson demonstrates: an aching, burning, and sharp cervical pain that it radiates into the bilateral upper extremities, associated with numbness and tingling; severe in the left greater than the right. Patient reports he is unable to move his left arm without physically moving it with his right. Patient has had increase in burning sensation into his left upper extremity that radiates into his left axilla. Overall the patient has seen a progressive increase in symptoms since their onset. I have explained to the patient that as their condition progresses it will cause further neurological deficits and eventual paralysis. Based on the patients imaging, physical exam, and the rapid progression and disabling nature of their symptoms, at this time I recommend surgery in the form of a: Stage I: C3-7 ACDF / Stage II: C2-T2 decompression and fusion. I discussed the risk and benefits of this procedure at length with Mr. Jackson. The patient agreed to considered pursuing the procedure above mentioned. Prior to surgery, she should follow up with her PCP (Cardio, ID, IM etc) for clearance. Questions were invited and answered, and the patient wishes to proceed as outlined below. Currently, I am recommendin.Stage I: C3-7 ACDF / Stage II: C2-T2 decompression and fusion Description of Procedure: C2-T1 Decompression and Fusion The patient was seen and examined in the preoperative area. All preoperative protocols were followed. Informed consent was obtained risks and benefits of the procedure were discussed at length. Risks including bleeding infection damage to the surrounding tissue and risk of reoperation were discussed with the patient. Risk of anesthesia up to and including was a discussed with the patient. These are outlined in the risk review. They were willing to accept these risks and all of the risks of surgery. The patient was given a weight- based dose of antibiotics in the form of 2 g Ancef. The patient was seen and evaluated by the anesthesia team who deemed them fit for surgery. The site was marked, the patient was willing to proceed with the procedure. The patient was transferred to the operative suite by the Department of anesthesia. They were then drifted off to sleep by the department anesthesia and GETA was performed. The patient tolerated this well. pre-positioning motors were obtained.Maier in place from the floor. Once confirmation of lines and ventilation Watkins head clamp was placed on the patient and secured and the patient was transferred to a [prone Andrea table very carefully] with the Watkins head of sales the head was secured and placed into an optimal position x-ray confirmed this position. Post-positioning motors remained stable. All bony prominences including wrists, elbows, axilla, chest, hips, and thighs, and feet were padded very well. Special attention was paid to the genitalia and these were padded accordingly. SCDs were placed on bilateral lower extremities and were connected. Arms were well padded and placed tucked at his side thumbs down. Shoulders were gently taped down to the table.. Once in position, again we confirmed good ventilation capabilities and that lines were running appropriately. The patient's posterior cervical spine was then exposed. 1010s were placed outlining the incision site. Standard alcohol was used to clean the incision site and allowed to dry. C-arm was used to biomark the patient and confirm level for incision which was marked with a skin marker. Operative briefing was performed with all teams and everyone in agreement to proceed. The patient was then prepped and draped in a normal sterile fashion. Timeout was then performed and all parties were in agreement with the procedure to be performed. Midline skin incision made over the previously biomarked area and dissection taken down midline to the SP of C2-T1. Subperiosteal dissection taken out over the lamina and lateral masses of C2-C7 and TVP of T1. Once exposure complete, wound was irrigated and c arm brought in for imaging. A penfield 4 was used to bluntly dissect the medial border of C2 pedicle and placed for guidance. C arm used and amrita hole made for starting point. C2 pedicle was then drilled in 2mm increments to 20 mm using a ball tip feeler in between each drill session to make sure within the 4 parnell with a good bottom. once this was accomplished a screw was selected and placed under lateral fluoroscopic guidance. Screw had good purchase. This was then repeated on the contralateral side. AP confirmed good placement of both screws. We then proceeded to the T1 screws bilaterally amrita was used to remove the facet joint of C7 and to create a starting point for T1. Pedicle finder was then passed into T1 and imaging taken to confirm placement this was then removed and a tap placed ball-tipped probe was then pl aced and 4 parnell of pedicle fell with good bottom. Screw was then measured and placed into T1. This is repeated on the contralateral side. The wound was then irrigated. Lateral mass screws were then drilled to 14 mm and placed at each level. Each had a good bite. Rods were then sized and selected and cut to length. They were bent accordingly and lordosis. There is secured into C2 bilaterally and then sequentially her diet reduced into T1. All set screws were placed and were then final tightened and the position. Laminectomy was then performed using Ronjair followed by amrita bilateral laminotomies and laminectomy was performed using high-speed bur Kerrison Ronjair and up-biting curette. Motors were run before and after decompression and they remain stable. Good pulsations of the cord were noted after decompression. The wound was then copiously irrigated with 3 L of Ancef irrigation followed by 3 L of gentamicin irrigation followed by 3 L of normal sterile saline. Facet joints were drilled at each level to allow for fusion Surgicel was placed over the dura. MagnetOs were placed in the posterior lateral gutters along with Jada and DBM. This was impacted into position for fusion. 2 g of powdered bank was not placed deep within the wound and a deep drain was placed. A cross-link was placed and final tightened. We then proceeded with layered closure first in the deep fascia with #1 PDS then in the middle fascia with 0 Vicryl superficial fascia was closed with 2-0 Vicryl and skin closed with skin erik. The wound edges approximated very well. The wound was then cleaned and dressed sterilely with an operative foam dressing 4 x 4 and Tegaderm. The drain had good suction. The patient was placed in a hard cervical collar. The patient was transferred back to their hospital bed atraumatically. Watkins head clamp was removed and pin sites were clear. [Drain continued to hold suction and were in good position]. Patient was then awakened and extubated by the department of anesthesia having tolerated the procedure very well with no complications. They were transferred to the postoperative care unit in stable condition.
[2022-10-17] MEDS: ATORVASTATIN 10 MG TAB PO SCH (19:58)
[2022-10-17] MEDS: QUEtiapine 100 MG TAB PO SCH (22:04)
[2022-10-18] MEDS: HYDROmorphone 1 MG/ML 1 ML SYRINGE IVP PRN ×6 (00:34→22:49)
[2022-10-18] MEDS: 0.9% NACL WITH KCL 20 MEQ/L 1,000 ML IV SCH ×3 (00:37→22:52)
--- NOTE | 2022-10-18 01:35 | PN ---
PROGRESS NOTE SUBJECTIVE: Status post cervical surgery, chose to go to rehab, planning on rehab. He is not under good control. His white count is 7.3, hemoglobin is normal. PO2 is 74, pCO2 is 46, little bit high probably for sleep apnea. OBJECTIVE: CARDIOVASCULAR: S1, S2. LUNGS: Transmitted upper sounds. MUSCULOSKELETAL: He has neck collar on. VITAL SIGNS: Temp 98.5, pulse 85, respiratory rate is 16 to 18, blood pressure 149/72, 97% on room air. ASSESSMENT: Status post cervical surgeries, history of carotid stenosis, history of severe lumbar disk disease, history of stroke with cerebrovascular accident and carotid stenosis, left side, 100% blocked, status post cervical surgery, pain control, PT, OT, possible rehab placement. MMODL / IJN: [id number] /
[2022-10-18] MEDS: LACTATED RINGERS 1,000 ML IV SCH (03:26)
[2022-10-18] MEDS: oxyCODONE-APAP 10-325MG 1 EACH TAB PO PRN ×2 (08:38→20:13)
[2022-10-18] MEDS: PANTOPRAZOLE 40 MG/10 ML VIAL IVP SCH (08:39)
[2022-10-18] MEDS: FERROUS SULFATE 325 MG TAB PO SCH (08:53)
[2022-10-18] MEDS: HEPARIN SODIUM,PORCINE/PF 5,000 UNIT/0.5 ML SYRINGE SQ SCH ×2 (08:53→20:13)
[2022-10-18] MEDS: GABAPENTIN 300 MG CAP PO SCH ×3 (08:53→22:42)
[2022-10-18] MEDS: METOPROLOL SUCCINATE (ER) 50 MG TAB.ER.24H PO SCH (08:53)
[2022-10-18] MEDS: POTASSIUM CHLORIDE ER 20 MEQ TAB.ER PO SCH (08:53)
[2022-10-18] MEDS: SENNOSIDES-DOCUSATE SODIUM 1 EACH TAB PO SCH (08:53)
[2022-10-18] MEDS: MAGNESIUM HYDROXIDE 2,400 MG/10 ML CUP PO SCH ×2 (08:54→11:57)
[2022-10-18] MEDS: FUROSEMIDE 80 MG TAB PO SCH (08:54)
[2022-10-18 12:14] VITALS: BMI 28.5
--- NOTE | 2022-10-18 15:09 | P.DS ---
Providers Date of admission: 10/17/22 07:48 Expected date of discharge: 10/18/22 Attending physician: Molina Victoria, Consults: 10/11/22 11:22 Consult Physician Routine Consulting Provider: Manfred Carpio Reason/Comments: Medical Management Do you want consulting provider notified?: Yes 10/15/22 23:51 Consult Physician Stat Consulting Provider: Glen Short Consult Reason/Comments: AMS Do you want consulting provider notified?: Yes Primary care physician: Manfred Carpio [facility] Course: Date of admission: 10/11/2022 Date of discharge: 10/18/2022 Admission diagnosis: [1. C3-7 Stenosis, spondylosis severe 2. Cervical Myelopathy 3. UE/LE weakness] Discharge diagnosis: Same Attending physician: Dr. Victoria Surgical procedures: C3-C6 ACDF and C2-T1 decompression and fusion Brief history: Patient is a 57-year-old male with a history of C3-C7 stenosis, spondylolisthesis; cervical myelopathy; upper and lower extremity weakness. At this point patient has failed conservative treatment measures and has opted to proceed with a elective C3 to C6 ACDF and C2-T1 decompression and fusion. Hospital course: Details of patient's surgery can be found in operative report. Patient tolerated the procedure well and was subsequently transported to orthopedic floor. Patient's orthopeidc and medical care was provided daily. Patient had daily laboratory tests performed for evaluation of overall blood counts . Patient had daily physical therapy to include strengthening range of motion as well as education with walker ambulation. Patient was treated with for their postoperative DVT prophylaxis during their inpatient stay. Patient was noted to have a relatively uneventful postoperative course. Patient reported satisfactory pain control with oral pain medications by postoperative day 7+5. Patient showed satisfactory progress with physical therapy. Patient moved steadily through the program and had no difficulty meeting the goals by postoperative day 7+5. Given patient's otherwise satisfactory course and having met physical therapy goals, plan is to discharge patient to rehab on postoperative day on postoperative day 7+5. Discharge condition/disposition: Patient will be discharged to rehab in stable condition. Discharge medications: Instructions are given on resumption of patient's normal daily medications per primary care recommendation, in addition patient will be prescribed oxycodone; gabapentin; Duricef; senna. Spine Discharge and Recovery Instructions Date of Surgery: 10/11/2022; 10/13/2022 Diagnosis: 1. C3-7 Stenosis, spondylosis severe 2. Cervical Myelopathy 3. UE/LE weakness Procedure: C3 to C6 ACDF and C2-T1 decompression fusion Medications: See medication list All medication refills should be obtained through your primary care doctor or your clinic spine surgeon. Please discuss prescription refills at your follow up appointment. Do not call the hospital for medication refills. Dressing: Leave your dressing in place for a total of 5 days post operatively. Then you may remove your dressing and leave open to air. Keep the area clean and if not able to keep area clean, then cover with sterile gauze and tape. Showering: You may shower 3 days after your procedure allowing soap and water to run over incision. Do not scrub. Do not soak. Blot dry. Follow up: Please confirm a follow up appointment with your surgeon 3 weeks post operatively. Please make an appointment to follow up with your PCP in 1-2 weeks after [place] for evaluation 3 phase, 3-week plan POST OP WEEKS 1-3 1. Lifting/carrying/pushing/pulling limited to less than 5 pounds. 2. Do not sit for longer than 15 minutes at one time. Get up and walk around. Prolonged sitting is NOT advised. If you lay down, see if you can tolerate laying down on you front (belly side) 3. Walk for periods of 15 minutes = 1 mile but no longer; do it multiple times times each day. 4. Ice your low back after activity. POST OP WEEKS 3-6 1. Lifting limited to less than 20 pounds. 2. Do not sit for longer than 30 minutes at a time. Frequently change positions. Use a sit-to stand workstation or take frequent breaks from sitting if you have returned to work. 3. Walk for 30 minutes each day. If possible, do these three or more times a day POST OP WEEKS 6+ At your 6-week appointment we will give you a physical therapy referral to focus on a core stabilization and strengthening program. You should also work on leg & buttock strengthening, hamstring & quadriceps stretching, and continue a low impact aerobic activity program such as swimming, walking, or riding a stationary bicycle. During the initial 6 weeks after your surgery, you are at the highest risk of re-injuring your spine. You should generally avoid BLTs (bending, lifting and twisting combination motions) and follow the above guidelines to reduce the chance of reinjury. You can anticipate post op appointments in our office at approximately 3 weeks and 6 weeks after your surgery. INCISION CARE: If your incision is not draining you do NOT need to cover it with a dressing. Keep your incision clean, dry and intact. In most cases, we apply skin glue, erik or sutures to the incision at the time of surgery. This will be like a crust or have the appearance of a scab and will fall off in time on its own. The stitches or erik need to be removed at 3 weeks post op appointment. You may begin to shower 3 days after surgery (this allows the glue to campos well). However, please avoid scrubbing the incision site or peeling off any of the skin glue. This will ensure optimal healing of your incision. Also, during this time avoid soaking the incision area in water - this includes swimming pools, hot tubs or baths. No ointments, lotions or oils on the incision until your surgeon allows. Leave erik, sutures or glue in place. Neurological dysfunction that comes on suddenly can also be a sign of a stroke. Below some common symptoms of a stroke are listed: B - balance difficulty such as sudden onset walking or leaning to one side - NEW E - eye problem such as sudden double vision or trouble seeing on one side - NEW F - Facial weakness or numbness on one side - NEW A - Arm or leg weakness or numbness on one side - NEW S - Slurred speech or difficulty with word finding - NEW T - Time is BRAIN! Call 911 as soon as you recognize these symptoms Diet: Consume a regular diet rich in vegetables and lean protein such as chicken or fish. You should consume in a ratio of approximately 20% fats|40% carbohydrates|40%protein. Vegetables, sweet potatoes, brown rice or quinoa are examples of good carbohydrates. Chips, white bread, cookies and sweets/sugar are examples of bad carbohydrates. Limit your bad carbs, go wild with good carbs. "Life's Simple 7" Guidelines as per [place] [employer] These will help you reclaim your life after surgery and shear grinder operator helper in your recovery, keeping in mind your restrictions. (1) Get Active. Physical activity can help people lose weight, control high blood pressure and cholesterol, feel emotionally better, and sleep better. (2) Control Cholesterol. Avoid a diet high in saturated fat, trans fat, & cholesterol. Limit whole milk & cream, ice cream, butter, egg yolks, processed meats (like sausage and hot dogs), and fatty meats. Choose healthy foods that are low in saturated fat, trans fat and cholesterol which include: Fruits and vegetables, fiber rich grain products (like whole grain pasta and brown rice), lean meat such as chicken, fish, nuts, seeds, and legumes. (3) Eat Better. Eat small portions. Shop at the grocery with a list and do not stray from it. Tips for a healthy diet include: Limit sodium intake to less than 1500mg daily, avoid prepackaged, processed, and fast foods, choose a diet rich in fruits, vegetables, and whole grain, high fiber foods, and limit saturated & cholesterol in your diet. (4) Manage Blood Pressure. If you have high blood pressure, you should have a cuff at home so that you can check your blood pressure regularly. Be sure you have a good cuff. An arm one is generally better than a wrist one. Bring the cuff to a doctor's appointment to validate that the measurements that your cuff are taking are accurate. Take your blood pressure twice daily when you are sitting down and relaxing. Record the numbers in a log and bring this log with you to your doctors' appointments. (5) Lose Weight if your BMI is above 25. A healthy BMI is between 19-25. To calculate Your BMI, you may use a Standard BMI Calculator on the NIH BMI website: <www.nhlbi.nih.gov/guidelines/obesity/BMI/bmicalc.htm>. Weigh oneself daily. If you are overweight, set a goal to lose weight. A pound a week loss if needed is a good target. (6) Reduce Blood Sugar. Limit foods and liquids with "added sugars." (Added sugars include sucrose, fructose, glucose, maltose, dextrose, high fructose corn syrup, corn syrup, concentrated fruit juice and honey). (7) Stop Smoking. If you smoke, quitting smoking is one of the best things that you can do for your health. Smoking increases your risk of heart attack, stroke, and peripheral vascular disease, which is a build-up of plaque in your arteries. Please discard all the cigarettes and lighters in your house. Have a plan for what you will do when you have the urge to smoke. Direct and second- hand smoke shortens your life as well as the lives of your family, friends and others around you. For your health and the health of those around you, please consider quitting! Proper Bending Body Mechanics: Maintain a wide stance with one foot slightly in front of the other. Keep your back straight. Bend utilizing the strength in your hips and knees. Do not bend at the waist. Maintain the lifted object at your waist-level close to your body. Avoid lifting weight that causes immediately pain or pain anywhere in the body afterwards. Smoking/Nicotine If there was ever one thing that you could do to increase your overall health, decrease your risk of cardiovascular problems by about 39% the second you make the choice, it is to STOP SMOKING. Your body's most instant gratification is the second you stop smoking. We have all heard the studies, read the articles but it is true, smoking is extremely bad for your overall health, and moreover it is detrimental to your bone health. Nicotine, IN ANY FORM, kills bone cells, prevents your body from healing fractures, and significantly prolongs healing after surgery. In spine surgery specifically, it increases your risk of not healing your bones to create a fusion and increases your risk of having a revision surgery due to this up to 60%. I know it is hard. I know it feels impossible. But there are ways. Take control of your life. We are here to help you through it. And when you are ready, ask us and we can direct you to help if you desire. Use the START Plan to Quit Smoking (please visit the Helpguide.org website listed below for more information): S = Set a quit date. Choose a date within the next 2 weeks, so you have enough time to prepare without losing your motivation to quit. If you mainly smoke at work, quit on the weekend, so you have a few days to adjust to the change. T = Tell family, friends, and co-workers that you plan to quit. Let your friends and family in on your plan to quit smoking and tell them you need their support and encouragement to stop. Look for a quit carlita who wants to stop smoking as well. You can help each other get through the rough times. A = Anticipate and plan for the challenges you'll face while quitting. Most people who begin smoking again do so within the first 3 months. You can help yourself make it through by preparing ahead for common challenges, such as nicotine withdrawal and cigarette cravings. R = Remove cigarettes and other tobacco products from your home, car, and work. Throw away all your cigarettes (no emergency pack!), lighters, ashtrays, and matches. Wash your clothes and freshen up anything that smells like smoke. Shampoo your car, clean your drapes and carpet, and steam your furniture. T = Talk to your doctor about getting help to quit. Your doctor can prescribe medication to help with withdrawal and suggest other alternatives. If you can't see a doctor, you can get many products over the counter at your local pharmacy or grocery store, including the nicotine patch, nicotine lozenges, and nicotine gum. Resources for Quitting Smoking: <https://www.[place].gov/documents/[facility]/Quit_Tobacco_Resources_for_patients_313 480_7.pdf> Supplementation: Take recommended dosages of Vitamin D and Calcium to help fortify your bones and help them to heal. See your health maintenance packet for dosages and recommended levels. DVT/VTE prophylaxis: You will be given compression stockings from the hospital. Wear these daily for the first two weeks after surgery. You may take them off at night. You may be prescribed a medication to help thin your blood. Take this as directed. If you are not prescribed this medication, early and frequent ambulation has been shown to be the best prophylaxis to deep vein thrombosis and sequelae related to this event. Assessment: 1. C3-7 Stenosis, spondylosis severe 2. Cervical Myelopathy 3. UE/LE weakness Procedures: C3 to C6 ACDF and C2 to T1 decompression fusion Patient Condition at Discharge: Good Plan - Discharge Summary Discharge Rx Participant: No New Discharge Prescriptions: New Gabapentin 300 mg PO TID #30 cap oxyCODONE-APAP 10-325MG [Percocet 10-325 mg] 1 tab PO Q4-6H PRN #24 tab PRN Reason: Pain cefaDROXiL [Duricef] 500 mg PO Q12HR 5 Days #10 cap Sennosides/Docusate Sodium [Senna Plus 8.6-50 mg Softgel] 1 each PO DAILY #20 capsule No Action Simvastatin [Zocor] 20 mg PO HS Omeprazole 40 mg PO DAILY Metoprolol Succinate (ER) [Toprol XL] 50 mg PO DAILY QUEtiapine [SEROquel] 200 mg PO HS Dilaudid Pain Pump 1 dose INTRATHECA DIRECTED oxyCODONE-APAP 10-325MG [Percocet 10-325 mg] 1 tab PO Q8HR PRN PRN Reason: Pain Potassium Chloride [Potassium Chloride ER (K-Dur GEQ)] 20 meq PO DAILY Eszopiclone 3 mg PO HS ALPRAZolam [Xanax] 0.5 mg PO HS PRN PRN Reason: Anxiety Ferrous Sulfate [Iron] 325 mg PO DAILY Clopidogrel [Plavix] 75 mg PO DAILY Gabapentin 600 mg PO DAILY Furosemide [Lasix] 80 mg PO DAILY Discharge Medication List Simvastatin [Zocor] 20 mg PO HS 03/06/18 [History] Metoprolol Succinate (ER) [Toprol XL] 50 mg PO DAILY 07/09/20 [History] Omeprazole 40 mg PO DAILY 07/09/20 [History] Clopidogrel [Plavix] 75 mg PO DAILY 02/03/21 [History] QUEtiapine [SEROquel] 200 mg PO HS 02/03/21 [History] Dilaudid Pain Pump 1 dose INTRATHECA DIRECTED 08/10/21 [History] ALPRAZolam [Xanax] 0.5 mg PO HS PRN 10/06/22 [History] Eszopiclone 3 mg PO HS 10/06/22 [History] Ferrous Sulfate [Iron] 325 mg PO DAILY 10/06/22 [History] Furosemide [Lasix] 80 mg PO DAILY 10/06/22 [History] Gabapentin 600 mg PO DAILY 10/06/22 [History] Potassium Chloride [Potassium Chloride ER (K-Dur GEQ)] 20 meq PO DAILY 10/06/22 [History] oxyCODONE-APAP 10-325MG [Percocet 10-325 mg] 1 tab PO Q8HR PRN 10/06/22 [History] Gabapentin 300 mg PO TID #30 cap 10/18/22 [Rx] Sennosides/Docusate Sodium [Senna Plus 8.6-50 mg Softgel] 1 each PO DAILY #20 capsule 10/18/22 [Rx] cefaDROXiL [Duricef] 500 mg PO Q12HR 5 Days #10 cap 10/18/22 [Rx] oxyCODONE-APAP 10-325MG [Percocet 10-325 mg] 1 tab PO Q4-6H PRN #24 tab 10/18/22 [Rx] Follow up Appointment(s)/Referral(s): Manfred Carpio MD [Primary Care Provider] - 1 Week Molina Victoria DO [Doctor of Osteopathic Medicine] - 10/26/22 2:00 pm Activity/Diet/Wound Care/Special Instructions: Spine Discharge and Recovery Instructions Date of Surgery: 10/11/2022; 10/13/2022 Diagnosis: 1. C3-7 Stenosis, spondylosis severe 2. Cervical Myelopathy 3. UE/LE weakness Procedure: C3 to C6 ACDF and C2-T1 decompression fusion Medications: See medication list All medication refills should be obtained through your primary care doctor or your clinic spine surgeon. Please discuss prescription refills at your follow up appointment. Do not call the hospital for medication refills. Dressing: Leave your dressing in place for a total of 5 days post operatively. Then you may remove your dressing and leave open to air. Keep the area clean and if not able to keep area clean, then cover with sterile gauze and tape. Showering: You may shower 3 days after your procedure allowing soap and water to run over incision. Do not scrub. Do not soak. Blot dry. Follow up: Please confirm a follow up appointment with your surgeon 3 weeks post operatively. Please make an appointment to follow up with your PCP in 1-2 weeks after surgery for evaluation 3 phase, 3-week plan POST OP WEEKS 1-3 1. Lifting/carrying/pushing/pulling limited to less than 5 pounds. 2. Do not sit for longer than 15 minutes at one time. Get up and walk around. Prolonged sitting is NOT advised. If you lay down, see if you can tolerate laying down on you front (belly side) 3. Walk for periods of 15 minutes = 1 mile but no longer; do it multiple times times each day. 4. Ice your low back after activity. POST OP WEEKS 3-6 1. Lifting limited to less than 20 pounds. 2. Do not sit for longer than 30 minutes at a time. Frequently change positions. Use a sit-to stand workstation or take frequent breaks from sitting if you have returned to work. 3. Walk for 30 minutes each day. If possible, do these three or more times a day POST OP WEEKS 6+ At your 6-week appointment we will give you a physical therapy referral to focus on a core stabilization and strengthening program. You should also work on leg & buttock strengthening, hamstring & quadriceps stretching, and continue a low impact aerobic activity program such as swimming, walking, or riding a stationary bicycle. During the initial 6 weeks after your surgery, you are at the highest risk of re-injuring your spine. You should generally avoid BLTs (bending, lifting and twisting combination motions) and follow the above guidelines to reduce the chance of reinjury. You can anticipate post op appointments in our office at approximately 3 weeks and 6 weeks after your surgery. INCISION CARE: If your incision is not draining you do NOT need to cover it with a dressing. Keep your incision clean, dry and intact. In most cases, we apply skin glue, erik or sutures to the incision at the time of surgery. This will be like a crust or have the appearance of a scab and will fall off in time on its own. The stitches or erik need to be removed at 3 weeks post op appointment. You may begin to shower 3 days after surgery (this allows the glue to campos well). However, please avoid scrubbing the incision site or peeling off any of the skin glue. This will ensure optimal healing of your incision. Also, during this time avoid soaking the incision area in water - this includes swimming pools, hot tubs or baths. No ointments, lotions or oils on the incision until your surgeon allows. Leave erik, sutures or glue in place. Neurological dysfunction that comes on suddenly can also be a sign of a stroke. Below some common symptoms of a stroke are listed: B - balance difficulty such as sudden onset walking or leaning to one side - NEW E - eye problem such as sudden double vision or trouble seeing on one side - NEW F - Facial weakness or numbness on one side - NEW A - Arm or leg weakness or numbness on one side - NEW S - Slurred speech or difficulty with word finding - NEW T - Time is BRAIN! Call 911 as soon as you recognize these symptoms Diet: Consume a regular diet rich in vegetables and lean protein such as chicken or fish. You should consume in a ratio of approximately 20% fats|40% carbohydrates|40%protein. Vegetables, sweet potatoes, brown rice or quinoa are examples of good carbohydrates. Chips, white bread, cookies and sweets/sugar are examples of bad carbohydrates. Limit your bad carbs, go wild with good carbs. "Life's Simple 7" Guidelines as per [place] [employer] These will help you reclaim your life after surgery and shear grinder operator helper in your recovery, keeping in mind your restrictions. (1) Get Active. Physical activity can help people lose weight, control high blood pressure and cholesterol, feel emotionally better, and sleep better. (2) Control Cholesterol. Avoid a diet high in saturated fat, trans fat, & cholesterol. Limit whole milk & cream, ice cream, butter, egg yolks, processed meats (like sausage and hot dogs), and fatty meats. Choose healthy foods that are low in saturated fat, trans fat and cholesterol which include: Fruits and vegetables, fiber rich grain products (like whole grain pasta and brown rice), lean meat such as chicken, fish, nuts, seeds, and legumes. (3) Eat Better. Eat small portions. Shop at the grocery with a list and do not stray from it. Tips for a healthy diet include: Limit sodium intake to less than 1500mg daily, avoid prepackaged, processed, and fast foods, choose a diet rich in fruits, vegetables, and whole grain, high fiber foods, and limit saturated & cholesterol in your diet. (4) Manage Blood Pressure. If you have high blood pressure, you should have a cuff at home so that you can check your blood pressure regularly. Be sure you have a good cuff. An arm one is generally better than a wrist one. Bring the cuff to a doctor's appointment to validate that the measurements that your cuff are taking are accurate. Take your blood pressure twice daily when you are sitting down and relaxing. Record the numbers in a log and bring this log with you to your doctors' appointments. (5) Lose Weight if your BMI is above 25. A healthy BMI is between 19-25. To c alculate Your BMI, you may use a Standard BMI Calculator on the NIH BMI website: <www.nhlbi.nih.gov/guidelines/obesity/BMI/bmicalc.htm>. Weigh oneself daily. If you are overweight, set a goal to lose weight. A pound a week loss if needed is a good target. (6) Reduce Blood Sugar. Limit foods and liquids with "added sugars." (Added sugars include sucrose, fructose, glucose, maltose, dextrose, high fructose corn syrup, corn syrup, concentrated fruit juice and honey). (7) Stop Smoking. If you smoke, quitting smoking is one of the best things that you can do for your health. Smoking increases your risk of heart attack, stroke, and peripheral vascular disease, which is a build-up of plaque in your arteries. Please discard all the cigarettes and lighters in your house. Have a plan for what you will do when you have the urge to smoke. Direct and second- hand smoke shortens your life as well as the lives of your family, friends and others around you. For your health and the health of those around you, please consider quitting! Proper Bending Body Mechanics: Maintain a wide stance with one foot slightly in front of the other. Keep your back straight. Bend utilizing the strength in your hips and knees. Do not bend at the waist. Maintain the lifted object at your waist-level close to your body. Avoid lifting weight that causes immediately pain or pain anywhere in the body afterwards. Smoking/Nicotine If there was ever one thing that you could do to increase your overall health, decrease your risk of cardiovascular problems by about 39% the second you make the choice, it is to STOP SMOKING. Your body's most instant gratification is the second you stop smoking. We have all heard the studies, read the articles but it is true, smoking is extremely bad for your overall health, and moreover it is detrimental to your bone health. Nicotine, IN ANY FORM, kills bone cells, prevents your body from healing fractures, and significantly prolongs healing after surgery. In spine surgery specifically, it increases your risk of not healing your bones to create a fusion and increases your risk of having a revision surgery due to this up to 60%. I know it is hard. I know it feels impossible. But there are ways. Take control of your life. We are here to help you through it. And when you are ready, ask us and we can direct you to help if you desire. Use the START Plan to Quit Smoking (please visit the [employer]org website listed below for more information): S = Set a quit date. Choose a date within the next 2 weeks, so you have enough time to prepare without losing your motivation to quit. If you mainly smoke at work, quit on the weekend, so you have a few days to adjust to the change. T = Tell family, friends, and co-workers that you plan to quit. Let your friends and family in on your plan to quit smoking and tell them you need their support and encouragement to stop. Look for a quit carlita who wants to stop smoking as well. You can help each other get through the rough times. A = Anticipate and plan for the challenges you'll face while quitting. Most people who begin smoking again do so within the first 3 months. You can help yourself make it through by preparing ahead for common challenges, such as nicotine withdrawal and cigarette cravings. R = Remove cigarettes and other tobacco products from your home, car, and work. Throw away all your cigarettes (no emergency pack!), lighters, ashtrays, and matches. Wash your clothes and freshen up anything that smells like smoke. Shampoo your car, clean your drapes and carpet, and steam your furniture. T = Talk to your doctor about getting help to quit. Your doctor can prescribe medication to help with withdrawal and suggest other alternatives. If you can't see a doctor, you can get many products over the counter at your local pharmacy or grocery store, including the nicotine patch, nicotine lozenges, and nicotine gum. Resources for Quitting Smoking: <https://www.[place].gov/documents/[facility]/Quit_Tobacco_Resources_for_patients_313 480_7.pdf> Supplementation: Take recommended dosages of Vitamin D and Calcium to help fortify your bones and help them to heal. See your health maintenance packet for dosages and recommended levels. DVT/VTE prophylaxis: You will be given compression stockings from the hospital. Wear these daily for the first two weeks after surgery. You may take them off at night. You may be prescribed a medication to help thin your blood. Take this as directed. If you are not prescribed this medication, early and frequent ambulation has been shown to be the best prophylaxis to deep vein thrombosis and sequelae related to this event. Discharge Disposition: TRANSFER TO SNF/ECF
--- NOTE | 2022-10-18 16:15 | P.PN ---
Subjective Progress Note Date: 10/18/22 Principal diagnosis: 1. Cervical spondylotic myelopathy 2. UE weakness with radiculopathy and paresthesia 3. Neck pain Patient was seen at bedside this morning lying semirecumbent position with hard cervical collar in place and dressings. Dressings appear to be clean, dry, int act at this time. Patient says he is still in moderate to severe pain. Patient describes this pain as burning in sensation in the posterior neck area. Patient says he has been able to get up and walk around a little, but when he sits in the chair after about 30-45 minutes the pain is intense and he needs to go back to bed. Patient says he has urinated daily since surgery. Patient says he has had a bowel movement as well. Patient denies chest pain, fever, shortness of breath, nausea, vomiting, change in vision, loss of bowel/bladder control. Objective - Vital Signs Vital signs: Vital Signs Temp 98.3 F 10/18/22 14:00 Pulse 84 10/18/22 14:00 Resp 18 10/18/22 14:00 BP 129/79 10/18/22 14:00 Pulse Ox 97 10/18/22 14:00 FiO2 Intake & Output 10/17/22 10/18/22 10/18/22 18:59 06:59 18:59 Intake Total 100 Output Total 400 Balance -400 100 Weight 95.5 kg Intake: Oral 100 Output: Urine 400 Other: Voiding Method Urinal # Voids 3 - Exam Inspection: Hard cervical collar in place with dressings in place. Dressings appear to be clean, dry, intact. Victor are well aligned and intact. Negative for any drainage. Sensation: There is some deficit in the C5 to C7 dermatomes. sensation throughout the bilateral upper and lower extremities is equal, symmetric, bilaterally intact. Palpation: Moderate tenderness to palpation over the posterior cervical spine and midline. Fair amount of tenderness to palpation over anterior cervical incision. Nontender to palpation throughout rest of exam. Range of motion: Patient has full range of motion bilateral lower extremities on exam. Patient does have range of motion bilateral shoulders due to referred pain from neck. Motor: 4/5 in all major milligrams in right upper extremity. 3/5 in all major motor groups in left upper extremity. 5/5 in all major motor groups in bilateral lower extremities. Neurovascular status: Radial pulses intact bilaterally. 2+. Cap refill under 3 seconds in digits upper extremities. Special tests: Negative Homans sign. Negative clonus bilaterally. - Labs CBC & Chem 7: 10/16/22 11:48 10/16/22 11:48 Assessment and Plan Assessment: Cervical spondylotic myelopathy 2. UE weakness with radiculopathy and paresthesia 3. Neck pain - Postoperative day #7+5 status post C3-C6 ACDF and C2-T1 posterior cervical decompression fusion Plan: 1. Cervical spondylotic myelopathy; UE weakness with radiculopathy and paresthesia; Neck pain - surgery - C3-C6 ACDF and C2-T1 posterior cervical decompression fusion. Patient stable at bedside this morning with hard cervical collar in place. Dressing is clean, dry, intact. Pain medication as needed. PT daily. Plan for discharge to rehab today. 2. Appreciate medical management 3. Pain management - oxycodone; gabapentin; Tylenol; Dilaudid 4. DVT prophylaxis - heparin 5. GI prophylaxis - senna 6. PT/OT - weightbearing as tolerated. Hard cervical collar on at all times 7. Encourage incentive spirometer use 8. Discharge planning - plan discharge to rehab today Time with Patient: Less than 30
[2022-10-18] MEDS: ATORVASTATIN 10 MG TAB PO SCH (20:14)
--- NOTE | 2022-10-18 20:53 | CDI ---
Documentation Clarification Form Date: 10/18/2022 08:49:20 PM From: Radha Driscoll RN, CCDS Email: [email or web address] Admit Date: 10/17/2022 07:48:00 AM Patient Name: Danny Jackson Visit Number: [id number] Discharge Date: ATTENTION: The Clinical Documentation Specialists (CDI) and [facility] Coding Staff appreciate your assistance in clarifying documentation. Please respond to the clarification below the line at the bottom and electronically sign. The CDI & [facility] Coding staff will review the response and follow-up if needed. Please note: Queries are made part of the Legal Health Record. If you have any questions, please contact the author of this message via ITS. Dr. Bienvenido King Your patient has the documented symptom of Altered Mental Status in the progress notes. Additional clarification regarding the etiology/cause of this symptom is requested. History/Risk Factors: left cervical mylopathy with UE paresis, cervical stenosis, s/p spinal fusion, chronic pain, narcotic dependency, ICA occlusion, CVA, GIB, HLD, anxiety, depression, panic disorder and PTSD Clinical Indicators: 10/16 Ortho: "Chronic pain narcotic dependency." 10/16 Neurology consult: "Reason for consult is AMS. Overnight yesterday patient was very confused and per the nurse she was notified that he was on a pain pump which was stopped yesterday at 9 PM. He was extremely confused but currently is doing better. Chronic pain narcotic dependency. Delirium, likely due to multifactorial - medication use (opiates/narcotics and hospital induced). Drastically improved." Labs: 10/16 blood gas: pCO2 46, pO2 74, HCO3 30 10/[address]: No acute stroke or hemorrhage. Bilateral remote infarcts. Treatment: Neurology consult as above. Hold pain pump. Please clarify the etiology of the symptom of Altered Mental Status: Toxic Encephalopathy due to pain medication MTDD
[2022-10-18] MEDS: QUEtiapine 100 MG TAB PO SCH (22:42)
--- NOTE | 2022-10-19 00:27 | PN ---
PROGRESS NOTE SUBJECTIVE: This is a 57-year-old white male status post cervical stenosis surgery. He is getting ready to go to the long-term tomorrow with PT, OT. Medications were reviewed. Discharge med rec was done. OBJECTIVE: CARDIOVASCULAR: S1, S2. LUNGS: Clear. GI: Soft. HEMATOLOGY: Negative for Homans. PSYCH: Fair mood and affect. ASSESSMENT: Status post cardiac ablation, status post cervical radiculopathy, COPD, carotid stenosis, prior CVA, hypertension. Continue current treatments. Xanax at night for sleeping. PROGNOSIS: Guarded. Discharge med rec done. MMODL / IJN: [id number] /
[2022-10-19] MEDS: LACTATED RINGERS 1,000 ML IV SCH (05:34)
[2022-10-19] MEDS: HYDROmorphone 1 MG/ML 1 ML SYRINGE IVP PRN ×5 (05:34→21:53)
[2022-10-19] MEDS: METOPROLOL SUCCINATE (ER) 50 MG TAB.ER.24H PO SCH (08:19)
[2022-10-19] MEDS: FERROUS SULFATE 325 MG TAB PO SCH (08:19)
[2022-10-19] MEDS: HEPARIN SODIUM,PORCINE/PF 5,000 UNIT/0.5 ML SYRINGE SQ SCH ×2 (08:19→20:14)
[2022-10-19] MEDS: SENNOSIDES-DOCUSATE SODIUM 1 EACH TAB PO SCH (08:19)
[2022-10-19] MEDS: POTASSIUM CHLORIDE ER 20 MEQ TAB.ER PO SCH (08:19)
[2022-10-19] MEDS: FUROSEMIDE 80 MG TAB PO SCH (08:19)
[2022-10-19] MEDS: GABAPENTIN 300 MG CAP PO SCH ×3 (08:19→20:13)
[2022-10-19] MEDS: PANTOPRAZOLE 40 MG/10 ML VIAL IVP SCH ×2 (08:45→08:46)
[2022-10-19] MEDS: MAGNESIUM HYDROXIDE 2,400 MG/10 ML CUP PO SCH (09:23)
--- NOTE | 2022-10-19 11:55 | P.PN ---
Subjective Progress Note Date: 10/19/22 Principal diagnosis: 1. Cervical spondylotic myelopathy 2. UE weakness with radiculopathy and paresthesia 3. Neck pain Patient was seen at bedside this morning lying semirecumbent position with hard cervical collar in place and dressings. Dressings appear to be clean, dry, int act at this time. Patient says he is still in moderate pain. Patient says he is doing much better than he was yesterday. Patient says he did have a bowel movement yesterday. Patient describes this pain as burning in sensation in the posterior neck area. Patient says he has been able to get up and walk around a little bit. Patient says he has urinated daily since surgery. Patient denies chest pain, fever, shortness of breath, nausea, vomiting, change in vision, loss of bowel/bladder control. Objective - Vital Signs Vital signs: Vital Signs Temp 98.6 F 10/19/22 07:14 Pulse 100 10/19/22 07:14 Resp 14 10/19/22 07:14 BP 127/82 10/19/22 07:14 Pulse Ox 97 10/19/22 07:14 FiO2 Intake & Output 10/18/22 10/19/22 10/19/22 18:59 06:59 18:59 Intake Total 336 Output Total 450 350 Balance -114 -350 Weight 95.5 kg Intake: Oral 336 Output: Urine 450 350 Other: Voiding Method Urinal # Voids 1 1 - Exam Inspection: Hard cervical collar in place with dressings in place. Dressings appear to be clean, dry, intact. Aurora are well aligned and intact. Negative for any drainage. Sensation: There is some deficit in the C5 to C7 dermatomes. sensation throughout the bilateral upper and lower extremities is equal, symmetric, bilaterally intact. Palpation: Moderate tenderness to palpation over the posterior cervical spine and midline. Fair amount of tenderness to palpation over anterior cervical incision. Nontender to palpation throughout rest of exam. Range of motion: Patient has full range of motion bilateral lower extremities on exam. Patient does have range of motion bilateral shoulders due to referred pain from neck. Motor: 4/5 in all major milligrams in right upper extremity. 3/5 in all major motor groups in left upper extremity. 5/5 in all major motor groups in bilateral lower extremities. Neurovascular status: Radial pulses intact bilaterally. 2+. Cap refill under 3 seconds in digits upper extremities. Special tests: Negative Homans sign. Negative clonus bilaterally. - Labs CBC & Chem 7: 10/16/22 11:48 10/16/22 11:48 Assessment and Plan Assessment: Cervical spondylotic myelopathy 2. UE weakness with radiculopathy and paresthesia 3. Neck pain - Postoperative day #8+6 status post C3-C6 ACDF and C2-T1 posterior cervical decompression fusion Plan: 1. Cervical spondylotic myelopathy; UE weakness with radiculopathy and paresthesia; Neck pain - surgery - C3-C6 ACDF and C2-T1 posterior cervical decompression fusion. Patient stable at bedside this morning with hard cervical collar in place. Dressing is clean, dry, intact. Pain medication as needed. P T daily. discharge to rehab today. 2. Appreciate medical management 3. Pain management - oxycodone; gabapentin; Tylenol; Dilaudid 4. DVT prophylaxis - heparin 5. GI prophylaxis - senna 6. PT/OT - weightbearing as tolerated. Hard cervical collar on at all times 7. Encourage incentive spirometer use 8. Discharge planning - discharge to rehab today Time with Patient: Less than 30
[2022-10-19] MEDS: oxyCODONE-APAP 10-325MG 1 EACH TAB PO PRN ×2 (12:07→20:13)
--- NOTE | 2022-10-19 15:14 | P.PAINPG ---
Objective - Vital Signs Vital signs: Vital Signs Temp 98.6 F 10/19/22 07:14 Pulse 100 10/19/22 07:14 Resp 14 10/19/22 07:14 BP 127/82 10/19/22 07:14 Pulse Ox 97 10/19/22 07:14 FiO2 Intake & Output 10/18/22 10/19/22 10/19/22 18:59 06:59 18:59 Intake Total 336 Output Total 450 350 600 Balance -114 -350 -600 Weight 95.5 kg Intake: Oral 336 Output: Urine 450 350 600 Other: Voiding Method Urinal # Voids 1 1 - Labs CBC & Chem 7: 10/16/22 11:48 10/16/22 11:48 PQRS Measure Charge Sheet Comment: HISTORY OF PRESENT ILLNESS: 57 yr old inpatient male as a referral from Dr Carpio presents today w severe and chronic neck pain secondary to DDD, spondylosis and facet arthropathy without myelopathy for evaluation. He underwent a ACDF C2-T1, currently w a hard C collar in place and awaiting discharge to a subacute rehab facility. Pt states pain level is provoked at 8 /10 in intensity, constant, localized throughout the cervical spine, sharp, burning in character w shooting pain towards the sides of the neck, BL shoulders and BUEs. Pain is provoked by any movement. Pain is alleviated by medications, repositioning and rest. PMH: OA, CVA, GERD, Hyperlipidemia, HTN, OA, ERAN, MDD/ Anxiety/ PTSD PSH: Thoracentesis s/p Rib Fx (2020), L Carotid Occlusion, L4-5 Fusion, C2-T1 Laminectomy/ Partial Facetectomy, ACDF, Appendectomy, Football Concusions x 6 or 7, Stabbing x 2. SH: Daily tobacco use, Occasional ETOH use, No illicit drug use FH: Mo- No Reported History. Fa- No Reported History All: See list Meds: See list REVIEW OF ORGAN SYSTEMS: CONSTITUTIONAL: No fevers or chills. No recent weight loss. NEUROLOGICAL: + numbness and tingling along the distal extremities. No seizure disorders or headaches. MUSCULOSKELETAL: + pain PSYCHIATRIC: Denies current depression or suicidal thoughts. Physical Examinations : Constitutional : Cooperative , not in acute distress . Neurologic : Cranial nerve II to XII intact. No focal neurological deficits. Psychiatric : alert & oriented x 3. Matching mood & appropriate affect. Judgment & insight intact. Musculoskeletal : Cervical Spine C collar in place, well-healing incisional scars intact, diffuse TTP Motor strength in the deltoid and biceps: Normal right side. Normal Left side Motor strength biceps and the wrist extensors: Normal right side . Normal left side Motor strength in the triceps muscle: Normal right side. Normal left side Deep tendon reflexes: Normal at the biceps. Normal at Brachioradialis. Normal at triceps Vertebral body tenderness to deep palpation over Cervical facet loading test: positive bilaterally Spurling test: positive bilaterally Neck distraction test: positive bilaterally Leila sign: positive bilaterally Lumbar spine Motor strength lower extremities ,thigh and legs 5/5 Right side , 5/5 Left side Deep tendon reflexes : Normal Knee Jerk. Normal Ankle Jerk Vertebral body tenderness over Hooks Test positive Lumbar facet Loading Test: positive Right / positive Left Range of motion of the lumbar spine Flexion 30 degrees, extension 10 degrees Straight Leg Raise test: Left/ Right positive at degree Mayo test: positive right / positive left. Severe tenderness over the Sacroiliac joint on the Right / Left sides Gaenslen test: positive bilaterally Seated flexion test: positive bilaterally. Sacral spine : Severe tenderness over the Sacroiliac joint: right side / left side Range of motion: Flexion of the lumbar spine <60 degrees Range of motion: Extension of the lumbar spine <20 degrees Gaenslen's Test positive Glenn's Test positive Mayo test: positive right side / left side Thigh Thrust Test Sacral Thrust Test Assessment/ Plan : Post laminectomy syndrome Recommendation of medication management at this time. Pt will be discharged to [facility] where he will receive inpatient rehab. He will follow up w his orth opedic surgeon s/p ACDF. All questions answered. I have spent greater than 30 minutes on patient care today. Dr Ruiz was available by phone for the evaluation of this patient. The time was used to review the medical records including relevant urine studies and Prescription history (MAPs), review of the available imaging, evaluation and examination of the patient, coordination of care with the medical staff and if applicable referring physicians, as well as creation of the medical record - Pain Location Generalized Non-Pharmacological Interventions: Darkened Room, Emotional/Spiritual Support Neck Non-Pharmacological Interventions: Darkened Room, Inactivity Pharmacological Interventions: Discuss Pain Med Options Pain Comment: pain pump PQRS Narrative: Smoking Status Former smoker Blood Pressure [Right Arm 151/88 Supine] Blood Pressure [Right Arm] 127/82 Pain Intensity [Neck] 9 Pain Intensity [Generalized] 8 Pain Intensity [None] 0 Pain Intensity [Back] 7 Pain Intensity 7 Pain Scale Used [Neck] Numeric (1 - 10) Pain Scale Used [Generalized] Numeric (1 - 10) Pain Scale Used Numeric (1 - 10) Scale Used Numeric (1 - 10) Home Medications: Ambulatory Orders Simvastatin [Zocor] 20 mg PO HS 03/06/18 Metoprolol Succinate (ER) [Toprol XL] 50 mg PO DAILY 07/09/20 Omeprazole 40 mg PO DAILY 07/09/20 Clopidogrel [Plavix] 75 mg PO DAILY 02/03/21 QUEtiapine [SEROquel] 200 mg PO HS 02/03/21 Eszopiclone 3 mg PO HS 10/06/22 Ferrous Sulfate [Iron] 325 mg PO DAILY 10/06/22 Furosemide [Lasix] 80 mg PO DAILY 10/06/22 Potassium Chloride [Potassium Chloride ER (K-Dur GEQ)] 20 meq PO DAILY 10/06/22 oxyCODONE-APAP 10-325MG [Percocet 10-325 mg] 1 tab PO Q8HR PRN 10/06/22 Gabapentin 300 mg PO TID #30 cap 10/18/22 Sennosides-Docusate Sodium [Senokot-S] 2 each PO DAILY tab 10/18/22 Sennosides/Docusate Sodium [Senna Plus 8.6-50 mg Softgel] 1 each PO DAILY #20 capsule 10/18/22 bisacodyL [Dulcolax] 10 mg RECTAL DAILY PRN suppositor 10/18/22 cefaDROXiL [Duricef] 500 mg PO Q12HR 5 Days #10 cap 10/18/22 oxyCODONE-APAP 10-325MG [Percocet 10-325 mg] 1 tab PO Q4-6H PRN #24 tab 10/18/22 ALPRAZolam [Xanax] 0.5 mg PO HS PRN #3 tab 10/19/22 Controlled Substance Measures - Controlled Substance Measures Is patient prescribed a controlled substance at discharge?: Yes If prescribed controlled substance>3 days was MAPS reviewed?: Prescribed <3 Days
[2022-10-19] MEDS: ATORVASTATIN 10 MG TAB PO SCH (20:13)
[2022-10-19] MEDS: 0.9% NACL WITH KCL 20 MEQ/L 1,000 ML IV SCH (20:17)
[2022-10-19] MEDS: QUEtiapine 100 MG TAB PO SCH (21:54)
[2022-10-20] MEDS: HYDROmorphone 1 MG/ML 1 ML SYRINGE IVP PRN ×3 (01:55→10:58)
[2022-10-20] MEDS: LACTATED RINGERS 1,000 ML IV SCH (03:10)
[2022-10-20] MEDS: POTASSIUM CHLORIDE ER 20 MEQ TAB.ER PO SCH (08:42)
[2022-10-20] MEDS: GABAPENTIN 300 MG CAP PO SCH ×3 (08:47→23:15)
[2022-10-20] MEDS: FERROUS SULFATE 325 MG TAB PO SCH (08:47)
[2022-10-20] MEDS: SENNOSIDES-DOCUSATE SODIUM 1 EACH TAB PO SCH (08:47)
[2022-10-20] MEDS: METOPROLOL SUCCINATE (ER) 50 MG TAB.ER.24H PO SCH (08:47)
[2022-10-20] MEDS: FUROSEMIDE 80 MG TAB PO SCH (08:47)
[2022-10-20] MEDS: HEPARIN SODIUM,PORCINE/PF 5,000 UNIT/0.5 ML SYRINGE SQ SCH ×2 (08:48→21:16)
[2022-10-20] MEDS: PANTOPRAZOLE 40 MG/10 ML VIAL IVP SCH (08:48)
[2022-10-20] MEDS: oxyCODONE-APAP 10-325MG 1 EACH TAB PO PRN ×3 (08:56→21:16)
[2022-10-20] MEDS: MAGNESIUM HYDROXIDE 2,400 MG/10 ML CUP PO SCH (08:59)
[2022-10-20 09:36] LABS: Basophils % (A) 1 %; Eosinophils # (A) 0.3 k/uL (0-0.7); Eosinophils % (A) 4 %; HCT 41.3 % (39.0-53.0); HGB 13.7 gm/dL (13.0-17.5); Lymphocytes # (A) 1.5 k/uL (1.0-4.8); Lymphocytes % (A) 20 %; MCH 31.1 pg (25.0-35.0); MCHC 33.1 g/dL (31.0-37.0); MCV 93.9 fL (80.0-100.0); Mean Platelet Volume 7.6; Monocytes # (A) 0.5 k/uL (0-1.0); Monocytes % (A) 7 %; Neutrophils % (A) 67 %; Platelet Count 262 k/uL (150-450); RDW 12.7 % (11.5-15.5); WBC 7.5 k/uL (3.8-10.6)
[2022-10-20 09:53] LABS: ALT 21 U/L (4-49); AST 26 U/L (17-59); African American GFR (CKD) >90 (>60 ml/min/1.73 sqM); Albumin 3.4 g/dL (3.5-5.0); Albumin/Globulin Ratio 1.4; Alkaline Phosphatase 77 U/L (38-126); Anion Gap 7 mmol/L; Blood Urea Nitrogen 15 mg/dL (9-20); Calcium 8.9 mg/dL (8.4-10.2); Carbon Dioxide 30 mmol/L (22-30); Chloride 99 mmol/L (98-107); Globulin 2.5 g/dL; Glucose 101 mg/dL (74-99); Non-African American GFR(CKD) >90 (>60 ml/min/1.73 sqM); Potassium 4.3 mmol/L (3.5-5.1); Sodium 136 mmol/L (137-145); Total Bilirubin 0.7 mg/dL (0.2-1.3); Total Protein 5.9 g/dL (6.3-8.2)
--- NOTE | 2022-10-20 10:10 | P.PN ---
Subjective Progress Note Date: 10/19/22 Patient initially seen by Dr. Glen Short. Please refer to his note for details. Patient is a 57-year-old male with history of left ICA occlusion and stroke, who has cervical myelopathy had undergone recent surgery for neck, came with altered mental status. It was felt altered mental status related to narcotic/opiate use for pain control. Patient was seen for a follow-up. Patient states that he has been using Percocet for 15 years. Patient had undergone neck surgery. Objective - Vital Signs Vital signs: Vital Signs Temp 98.7 F 10/19/22 13:50 Pulse 90 10/19/22 13:50 Resp 15 10/19/22 13:50 BP 135/71 10/19/22 13:50 Pulse Ox 95 10/19/22 13:50 FiO2 Intake & Output 10/18/22 10/19/22 10/19/22 18:59 06:59 18:59 Intake Total 336 Output Total 450 350 600 Balance -114 -350 -600 Weight 95.5 kg Intake: Oral 336 Output: Urine 450 350 600 Other: Voiding Method Urinal # Voids 1 1 - Exam Patient's mental status, speech and language functions are normal. Patient is reclining comfortably in the bed. He has hard collar in place. Patient has his gown taken off. Patient states it is October 2022 and that his [facility] in [place] and he knows name of the current president. Speech and language functions are normal. Attention, concentration, fund of knowledge is adequate. Cranial nerves are all normal. Visual palmer are full, face is symmetric. On muscle strength testing (right/left deltoid 5/5, biceps 5/5, triceps 5/4-, explosive man 5-/4+, wrist extension 5-4+/0. Hip flexion 5/5, ankle dorsiflexion 5/5. Patient has numbness of left upper extremity more than right upper extremity. - Labs CBC & Chem 7: 10/20/22 09:11 10/16/22 11:48 Assessment and Plan Assessment: Delerium---likely due to multifactoria: Medication use (opiates/Narcotics and hospital induced)--completely resolved Left cervical mylopathy with upper extremity hemiparesis s/o cervical ACDF C3 to C6 and decompression fusion C2 to T1 History of left ICA occlusion about 11 years ago and getting surveillance imaging History of bilateral small frontal stroke Chronic pain narcotic dependency Plan: Patient's mentation is completely normal at this time. Ammonia level 13, vitamin B12 536, folate 8.0, TSH decreased 0.416, with normal free T4 1.83. Abnormal TFTs, will defer to IM. Start folic acid 0.5 mg daily. Please avoid opiate/narcotic as much as possible. Recommend to resume his home dose of Plavix 75 mg daily for his history of stroke once cleared by Orthopedic surgery. Patient's last hemoglobin A1c 5.8 on 07/09/2020. Lipid panel on 10/07/2022 with cholesterol 158, LDL 87, HDL 51 and triglycerides 96.7. Continue Lipitor 10 mg. Per CTA head on 06/21/2022: Occlusion left ICA with patent right ICA. Asymmetric vascular density left MCA territory versus the right. The left ICA occlusion is chronic as it was also present in CTA from 08/08/2020. Recommend patient to follow-up with neurologist as outpatient for his history of strokes. Will defer rest of medical management to primary attending.
[2022-10-20] MEDS: FOLIC ACID 1 MG TAB PO SCH (10:57)
[2022-10-20] MEDS: CLOPIDOGREL 75 MG TAB PO SCH (12:40)
[2022-10-20] MEDS: MORPHINE SULFATE ER 15 MG TABLET PO SCH ×2 (14:14→21:17)
[2022-10-20] MEDS: ATORVASTATIN 10 MG TAB PO SCH (21:17)
[2022-10-20] MEDS: ALPRAZolam 0.25 MG TAB PO PRN (23:15)
[2022-10-20] MEDS: QUEtiapine 100 MG TAB PO SCH (23:15)
--- NOTE | 2022-10-21 00:51 | PN ---
PROGRESS NOTE SUBJECTIVE: Supposed to go to the [facility] tomorrow. Pain Clinic put him on MS Contin 15 b.i.d. He will go with his Percocet and his pain pump. He would possibly need to go home or go to the rehab center tomorrow depending on how he qualifies. OBJECTIVE: CARDIOVASCULAR: S1, S2. LUNGS: Clear. GI: Soft. HEMATOLOGY: Negative Homans. MUSCULOSKELETAL: He has a neck collar on. PLAN: Continue current treatment for COPD. He has nipple retraction, which has been there since age 1. Continue current treatment. He has no mass under the nipple. His nipple is missing apparently from some traumatic event when he was age 1. Continue current treatment. MMODL / IJN: [id number] /
[2022-10-21] MEDS: oxyCODONE-APAP 10-325MG 1 EACH TAB PO PRN ×6 (01:37→22:00)
[2022-10-21] MEDS: HEPARIN SODIUM,PORCINE/PF 5,000 UNIT/0.5 ML SYRINGE SQ SCH ×2 (08:58→20:08)
[2022-10-21] MEDS: GABAPENTIN 300 MG CAP PO SCH ×3 (08:59→20:08)
[2022-10-21] MEDS: CLOPIDOGREL 75 MG TAB PO SCH (08:59)
[2022-10-21] MEDS: SENNOSIDES-DOCUSATE SODIUM 1 EACH TAB PO SCH (08:59)
[2022-10-21] MEDS: FOLIC ACID 1 MG TAB PO SCH (08:59)
[2022-10-21] MEDS: FERROUS SULFATE 325 MG TAB PO SCH (08:59)
[2022-10-21] MEDS: METOPROLOL SUCCINATE (ER) 50 MG TAB.ER.24H PO SCH (09:00)
[2022-10-21] MEDS: MORPHINE SULFATE ER 15 MG TABLET PO SCH ×2 (09:00→20:07)
[2022-10-21] MEDS: PANTOPRAZOLE 40 MG/10 ML VIAL IVP SCH (09:03)
[2022-10-21] MEDS: POTASSIUM CHLORIDE ER 20 MEQ TAB.ER PO SCH (09:04)
[2022-10-21] MEDS: MAGNESIUM HYDROXIDE 2,400 MG/10 ML CUP PO SCH (09:04)
[2022-10-21] MEDS: FUROSEMIDE 80 MG TAB PO SCH (09:04)
[2022-10-21] MEDS: ATORVASTATIN 10 MG TAB PO SCH (20:07)
[2022-10-21] MEDS: QUEtiapine 100 MG TAB PO SCH (20:08)
[2022-10-21] MEDS: ALPRAZolam 0.25 MG TAB PO PRN (22:00)
[2022-10-22] MEDS: oxyCODONE-APAP 10-325MG 1 EACH TAB PO PRN ×5 (02:38→19:58)
[2022-10-22] MEDS: HEPARIN SODIUM,PORCINE/PF 5,000 UNIT/0.5 ML SYRINGE SQ SCH ×2 (08:03→19:58)
[2022-10-22] MEDS: SENNOSIDES-DOCUSATE SODIUM 1 EACH TAB PO SCH (08:04)
[2022-10-22] MEDS: METOPROLOL SUCCINATE (ER) 50 MG TAB.ER.24H PO SCH (08:04)
[2022-10-22] MEDS: FERROUS SULFATE 325 MG TAB PO SCH (08:04)
[2022-10-22] MEDS: FUROSEMIDE 80 MG TAB PO SCH (08:04)
[2022-10-22] MEDS: POTASSIUM CHLORIDE ER 20 MEQ TAB.ER PO SCH (08:04)
[2022-10-22] MEDS: FOLIC ACID 1 MG TAB PO SCH (08:04)
[2022-10-22] MEDS: CLOPIDOGREL 75 MG TAB PO SCH (08:04)
[2022-10-22] MEDS: MORPHINE SULFATE ER 15 MG TABLET PO SCH ×2 (08:05→19:57)
[2022-10-22] MEDS: GABAPENTIN 300 MG CAP PO SCH ×3 (08:05→19:57)
[2022-10-22] MEDS: MAGNESIUM HYDROXIDE 2,400 MG/10 ML CUP PO SCH (09:03)
--- NOTE | 2022-10-22 10:55 | P.PN ---
Subjective Progress Note Date: 10/21/22 10/21/2022: Patient was seen for follow-up. Patient states that he is doing better, but very frustrated because he has not been transferred to rehab facility. He states that he has been just watching TV shows, doing nothing, not getting much therapy which he needs. Denies any new symptoms. 10/19/2022: Patient initially seen by Dr. Glen Short. Please refer to his note for details. Patient is a 57-year-old male with history of left ICA occlusion and stroke, who has cervical myelopathy had undergone recent surgery for neck, came with altered mental status. It was felt altered mental status related to narcotic/opiate use for pain control. Patient was seen for a follow-up. Patient states that he has been using Percocet for 15 years. Patient had undergone neck surgery. Objective - Vital Signs Vital signs: Vital Signs Temp 99 F 10/21/22 13:36 Pulse 95 10/21/22 13:36 Resp 15 10/21/22 13:36 BP 134/74 10/21/22 13:36 Pulse Ox 96 10/21/22 13:36 FiO2 Intake & Output 10/20/22 10/21/22 10/21/22 18:59 06:59 18:59 Output Total 300 Balance -300 Output: Urine 300 Other: Voiding Method Toilet # Voids 2 - Exam Patient's mental status, speech and language functions are normal. Patient is reclining comfortably in the bed. He has hard collar in place. Patient states it is October 2022 and that it is [facility] in [place] and he knows name of the current president. Speech and language functions are normal. Attention, concentration, fund of knowledge is adequate. Cranial nerves are all normal. Visual palmer are full, face is symmetric. On muscle strength testing (right/left deltoid 5/5, biceps 5/5, triceps 5/4-, transit mix operator 5-/4+, wrist extension 5-4+/0. Hip flexion 5/5, ankle dorsiflexion 5/5. Patient has numbness of left upper extremity more than right upper extremity. - Labs CBC & Chem 7: 10/20/22 09:11 10/20/22 09:11 Assessment and Plan Assessment: Delerium---likely due to multifactoria: Medication use (opiates/Narcotics and hospital induced)--completely resolved Left cervical mylopathy with upper extremity hemiparesis s/o cervical ACDF C3 to C6 and decompression fusion C2 to T1 History of left ICA occlusion about 11 years ago and getting surveillance imaging History of bilateral small frontal stroke Chronic pain narcotic dependency Plan: Patient's mentation is completely normal at this time. Ammonia level 13, vitamin B12 536, folate 8.0, TSH decreased 0.416, with normal free T4 1.83. Abnormal TFTs, will defer to IM. Start folic acid 0.5 mg daily. Please avoid opiate/narcotic as much as possible. Patient resumed on Plavix 75 mg daily. Patient's last hemoglobin A1c 5.8 on 07/09/2020. Lipid panel on 10/07/2022 with cholesterol 158, LDL 87, HDL 51 and triglycerides 96.7. Increase Lipitor to 20 mg at bedtime to target LDL <70. Per [facility] head on 06/21/2022: Occlusion left ICA with patent right ICA. Asymmetric vascular density left MCA territory versus the right. The left ICA occlusion is chronic as it was also present in [facility] from 08/08/2020. Recommend patient to follow-up with neurologist as outpatient for his history of strokes. Will defer rest of medical management to primary attending. Patient awaiting insurance authorization for transfer to rehab facility. Neurology will sign off. Please reconsult neurology if any concerns.
--- NOTE | 2022-10-22 13:10 | PN ---
PROGRESS NOTE SUBJECTIVE: This is a 57-year-old white male, cervical stenosis, status post cervical surgeries on neck. He is able to ambulate during the room and not sure they want to take him to a rehab center. He is off all his IV pain medicines. OBJECTIVE: VITAL SIGNS: Pulse is 101 to 95, respiratory rate is 16 to 18, blood pressure is 120s over 70s to 80s, O2 97 on room air, and temp 98.1. CARDIOVASCULAR: S1, S2. LUNGS: Transmitted upper sounds. HEMATOLOGY: Negative for Homans. PSYCH: Fair mood and affect. NEUROLOGIC: Alert and oriented x3. PLAN: Rehab placement soon as possible, see in the next 24 to 48 hours. Cleared for discharge to go to the detention or to go to maybe even go home if they do not approve him for rehab. JOHN / CINDI: [id number] /
[2022-10-22] MEDS: ATORVASTATIN 20 MG TAB PO SCH (19:57)
[2022-10-22] MEDS: QUEtiapine 100 MG TAB PO SCH (22:03)
[2022-10-22] MEDS: ALPRAZolam 0.25 MG TAB PO PRN (22:04)
[2022-10-23] MEDS: oxyCODONE-APAP 10-325MG 1 EACH TAB PO PRN ×5 (03:32→19:56)
[2022-10-23] MEDS: SENNOSIDES-DOCUSATE SODIUM 1 EACH TAB PO SCH (08:07)
[2022-10-23] MEDS: MORPHINE SULFATE ER 15 MG TABLET PO SCH ×2 (08:07→21:07)
[2022-10-23] MEDS: FOLIC ACID 1 MG TAB PO SCH (08:07)
[2022-10-23] MEDS: CLOPIDOGREL 75 MG TAB PO SCH (08:07)
[2022-10-23] MEDS: FERROUS SULFATE 325 MG TAB PO SCH (08:07)
[2022-10-23] MEDS: PANTOPRAZOLE 40 MG/10 ML VIAL IVP SCH (08:07)
[2022-10-23] MEDS: GABAPENTIN 300 MG CAP PO SCH ×3 (08:07→21:07)
[2022-10-23] MEDS: METOPROLOL SUCCINATE (ER) 50 MG TAB.ER.24H PO SCH (08:08)
[2022-10-23] MEDS: MAGNESIUM HYDROXIDE 2,400 MG/10 ML CUP PO SCH (08:08)
[2022-10-23] MEDS: FUROSEMIDE 80 MG TAB PO SCH (08:14)
[2022-10-23] MEDS: HEPARIN SODIUM,PORCINE/PF 5,000 UNIT/0.5 ML SYRINGE SQ SCH ×2 (08:14→21:07)
[2022-10-23] MEDS: POTASSIUM CHLORIDE ER 20 MEQ TAB.ER PO SCH (08:14)
[2022-10-23] MEDS: ATORVASTATIN 20 MG TAB PO SCH (21:07)
[2022-10-23] MEDS: QUEtiapine 100 MG TAB PO SCH (21:07)
[2022-10-23] MEDS: ALPRAZolam 0.25 MG TAB PO PRN (21:07)
[2022-10-24] MEDS: oxyCODONE-APAP 10-325MG 1 EACH TAB PO PRN ×3 (04:29→12:50)
[2022-10-24] MEDS: FOLIC ACID 1 MG TAB PO SCH (07:48)
[2022-10-24] MEDS: GABAPENTIN 300 MG CAP PO SCH (07:48)
[2022-10-24] MEDS: METOPROLOL SUCCINATE (ER) 50 MG TAB.ER.24H PO SCH (07:48)
[2022-10-24] MEDS: MORPHINE SULFATE ER 15 MG TABLET PO SCH (07:48)
[2022-10-24] MEDS: SENNOSIDES-DOCUSATE SODIUM 1 EACH TAB PO SCH (07:48)
[2022-10-24] MEDS: CLOPIDOGREL 75 MG TAB PO SCH (07:48)
[2022-10-24 07:49] VITALS: BP 138/91; RESP 15; TEMP 99
[2022-10-24] MEDS: MAGNESIUM HYDROXIDE 2,400 MG/10 ML CUP PO SCH (07:49)
[2022-10-24] MEDS: FERROUS SULFATE 325 MG TAB PO SCH (07:49)
[2022-10-24] MEDS: PANTOPRAZOLE 40 MG/10 ML VIAL IVP SCH (07:50)
[2022-10-24] MEDS: FUROSEMIDE 80 MG TAB PO SCH (07:50)
[2022-10-24] MEDS: HEPARIN SODIUM,PORCINE/PF 5,000 UNIT/0.5 ML SYRINGE SQ SCH (07:50)
[2022-10-24] MEDS: POTASSIUM CHLORIDE ER 20 MEQ TAB.ER PO SCH (07:50)
[2022-10-24 10:02] VITALS: PULSE 70
--- NOTE | 2022-11-21 04:54 | DS ---
DISCHARGE SUMMARY MEDICATIONS: 1. Zocor 20 mg daily. 2. Omeprazole 40 daily. 3. Toprol-XL 50 daily. 4. Seroquel 200 mg at night. 5. Plavix 75 mg daily. 6. Percocet 10 every 6 hours p.r.n. 7. K-Dur 20 mEq daily. 8. daily. 9. Xanax 0.5 mg daily. 10.Ferrous sulfate 325 daily. 11.Gabapentin 600 daily. 12.Lasix 80 daily. 13.Percocet 10 q.6 hours. 14.Omnicef 300 b.i.d. for a week. 15.Xanax 0.5 at bedtime p.r.n. 16.MS Contin 15 b.i.d. 17.Folic acid 1 mg daily. CONDITION: Stable. PROGNOSIS: Guarded. Ambulate as tolerated. HOSPITAL COURSE: This is a white male who was admitted to the hospital who had cervical surgery per Dr. Victoria. Pain control was difficult postop. He was treated for COPD exacerbation and postop cervical laminectomy treatment. Follow up as an outpatient. He will need PT, OT rehab. He will have to go home with rehab. Prognosis guarded. MMODL / IJN: [id number] /
== END 2022-10-24 13:34 | disposition home health service (06) | DRG 453 ==
LOC: OR 05:47 → 4SSUR 07:12 → OR 07:12 → UNDOADMOB 07:12 → 4SSUR 10:50 → UNDOADMOB 10-12 07:12 → 4SSUR 10-12 07:12 → OBSVTOIN 10-13 15:53 → INTOOBSV 10-17 07:48 → OBSVTOIN 10-17 07:48
PROVIDERS: ADMIT Family Medicine; ATTEND Family Medicine
PROC: 0RG207J Fusion of 2 or more Cervical Vertebral Joints with Autologous Tissue Substitute, Posterior Approach, Anterior Column, Open Approach (ICD-10-PCS; 2022-10-11)
PROC: 0RT30ZZ Resection of Cervical Vertebral Disc, Open Approach (ICD-10-PCS; 2022-10-11)
PROC: 0RT50ZZ Resection of Cervicothoracic Vertebral Disc, Open Approach (ICD-10-PCS; 2022-10-11)
PROC: 01N10ZZ Release Cervical Nerve, Open Approach (ICD-10-PCS; 2022-10-11)
PROC: 00NW0ZZ Release Cervical Spinal Cord, Open Approach (ICD-10-PCS; 2022-10-11)
PROC: 0RG20A0 Fusion of 2 or more Cervical Vertebral Joints with Interbody Fusion Device, Anterior Approach, Anterior Column, Open Approach (ICD-10-PCS; principal; 2022-10-11 08:15)
PROC: 0RG2071 Fusion of 2 or more Cervical Vertebral Joints with Autologous Tissue Substitute, Posterior Approach, Posterior Column, Open Approach (ICD-10-PCS; 2022-10-13)
PROC: 0RG20AJ Fusion of 2 or more Cervical Vertebral Joints with Interbody Fusion Device, Posterior Approach, Anterior Column, Open Approach (ICD-10-PCS; 2022-10-13)
PROC: 0RG2071 Fusion of 2 or more Cervical Vertebral Joints with Autologous Tissue Substitute, Posterior Approach, Posterior Column, Open Approach (ICD-10-PCS; 2022-10-13)
PROC: 0RG40AJ Fusion of Cervicothoracic Vertebral Joint with Interbody Fusion Device, Posterior Approach, Anterior Column, Open Approach (ICD-10-PCS; 2022-10-13)
PROC: 0RG4071 Fusion of Cervicothoracic Vertebral Joint with Autologous Tissue Substitute, Posterior Approach, Posterior Column, Open Approach (ICD-10-PCS; 2022-10-13)
PROC: 01N10ZZ Release Cervical Nerve, Open Approach (ICD-10-PCS; 2022-10-13)
PROC: 01N80ZZ Release Thoracic Nerve, Open Approach (ICD-10-PCS; 2022-10-13)
PROC: 00NW0ZZ Release Cervical Spinal Cord, Open Approach (ICD-10-PCS; 2022-10-13)
PROC: 00NX0ZZ Release Thoracic Spinal Cord, Open Approach (ICD-10-PCS; 2022-10-13)
PROC: 0PB30ZZ Excision of Cervical Vertebra, Open Approach (ICD-10-PCS; 2022-10-13)
DX: M47.022 Vertebral artery compression syndromes, cervical region (principal); G92.8 Other toxic encephalopathy; M50.01 Cervical disc disorder with myelopathy, high cervical region; F11.20 Opioid dependence, uncomplicated; J44.9 Chronic obstructive pulmonary disease, unspecified; G83.24 Monoplegia of upper limb affecting left nondominant side; I10 Essential (primary) hypertension; I65.22 Occlusion and stenosis of left carotid artery; M48.02 Spinal stenosis, cervical region; M25.78 Osteophyte, vertebrae; M50.11 Cervical disc disorder with radiculopathy, high cervical region; M47.12 Other spondylosis with myelopathy, cervical region; M47.22 Other spondylosis with radiculopathy, cervical region; M43.12 Spondylolisthesis, cervical region; G47.30 Sleep apnea, unspecified; E78.5 Hyperlipidemia, unspecified; G89.29 Other chronic pain; M96.1 Postlaminectomy syndrome, not elsewhere classified; T40.605A Adverse effect of unspecified narcotics, initial encounter; Y83.8 Other surgical procedures as the cause of abnormal reaction of the patient, or of later complication, without mention of misadventure at the time of the procedure; Z96.612 Presence of left artificial shoulder joint; Z87.891 Personal history of nicotine dependence; Z87.820 Personal history of traumatic brain injury; Z79.02 Long term (current) use of antithrombotics/antiplatelets; Z86.14 Personal history of Methicillin resistant Staphylococcus aureus infection; Z86.73 Personal history of transient ischemic attack (TIA), and cerebral infarction without residual deficits; Z98.1 Arthrodesis status; Z97.8 Presence of other specified devices; Z28.310 Unvaccinated for COVID-19; Z79.899 Other long term (current) drug therapy
CPT/HCPCS: 36600; 70450; 72040; 72125; 80048; 80053; 82140; 82607; 82746; 82805; 84439; 84443; 85025; 86850; 86900; 86901